=== PATIENT | female | born 1985 | race Caucasian/White ===

== ENCOUNTER 2016-03-30 11:16 | Emergency (ER) | payer BC, OTHER ==
[~2016-03-30] VITALS: Ht 167.6 cm; Wt 64.0 kg
[~2016-03-30 11:16] MED LIST: ACET-1256 PO; FLUO10CA48 PO; IBUP-1050 PO; NAPR550T PO; NXM/40 PO; OXYC-57 PO
[2016-03-30 11:18] VITALS: TEMP 36.8; Ht 167.6 cm; Wt 64.0 kg
[2016-03-30] MEDS ORDERED: DICL-201 PO (11:43)
--- NOTE | 2016-03-30 13:00 | DIAGNOSTIC IMAGING REPORT ---
RIGHT FOOT 3 VIEWS CLINICAL HISTORY: Right foot injury and pain. FINDINGS: 3 views of the right foot are obtained. No prior studies are available for comparison at the time of dictation. The skeletal structures are well mineralized. No fracture is identified. The joint spaces of the foot are well-maintained. Soft tissue edema is present along the lateral aspect of the foot. IMPRESSION: Lateral soft tissue swelling with no radiographic evidence of fracture. Electronically signed by: Manuel Winston M.D. 03/30/2016 12:58 PM
--- NOTE | 2016-03-30 13:09 | EMERGENCY ROOM VISIT NOTE ---
ED Visit Note First contact with patient: 11:23 CHIEF COMPLAINT: Right foot injury last evening Patient is a 22-year-old white female who presents emergency department for evaluation of right foot pain. She was barefoot, and was doing some cleaning on the steps, when she turned and accidentally kicked the step. She sustained an abrasion to the top of the foot over the first metatarsal region. She complains of pain across the entire dorsum of the foot that radiates toward her ankle. She has tried taking Tylenol, ibuprofen, applying ice and taking diclofenac. She is able to bear weight with pressure on the lateral aspect of the foot. She denies any significant swelling or bruising. She states that her toes feel cold, but denies any numbness or tingling. No weakness. REVIEW OF SYSTEMS: Review of systems as per HPI. All other systems reviewed were negative. At least 6 systems reviewed. PMH: Electronic medical records are reviewed and summarized as above/below. See Problem List. SOCIAL HISTORY: Patient lives at home with her children. Employed. Smoker. PHYSICAL EXAM: Vital Signs: Reviewed Nurse's notes. GENERAL: Alert, oriented and coherent, not in acute distress. Foot: Examination of the right shoulder foot show a superficial abrasion noted on the dorsum of the foot over the first metatarsal, otherwise no other outward signs of trauma. No ecchymosis or significant soft tissue swelling. She is tenderness over the dorsum of the foot. No pain or bruising noted in the toes. Range of motion is full. No ligamentous instability. Ankle is nontender. EMERGENCY DEPARTMENT COURSE: X-rays of the right foot were negative for fracture. She declined a postop shoe. She will wear a supportive shoe such as a sneaker. She was given a [place] home pack. She was encouraged to use her other anti-inflammatory medicines as needed for pain. Follow-up with her toe or her PCP if she is not getting any better. Differential diagnosis includes sprain, contusion, fracture, dislocation. RIGHT FOOT 3 VIEWS CLINICAL HISTORY: Right foot injury and pain. FINDINGS: 3 views of the right foot are obtained. No prior studies are available for comparison at the time of dictation. The skeletal structures are well mineralized. No fracture is identified. The joint spaces of the foot are well-maintained. Soft tissue edema is present along the lateral aspect of the foot. IMPRESSION: Lateral soft tissue swelling with no radiographic evidence of fracture. Problem List Medical Problems: (1) Abdominal pain Status: Resolved (2) Anxiety Status: Chronic (3) Contractions Status: Resolved (4) Dehydration Status: Resolved (5) Diarrhea Status: Resolved (6) Diarrhea Status: Resolved (7) Encounter for tubal ligation Status: Resolved (8) Endometriosis Status: Resolved (9) Epigastric pain Status: Resolved (10) Gallbladder sludge Status: Resolved (11) GERD (gastroesophageal reflux disease) Status: Chronic (12) History of miscarriage Status: Resolved (13) Hx of endometriosis Status: Resolved (14) Pelvic pain Status: Resolved (15) Status: Resolved (16) Vomiting Status: Resolved Surgical Problems: (1) History of hysterectomy Status: Resolved (2) History of wisdom tooth extraction Status: Resolved Current/Historical Medications Scheduled Acetaminophen (Tylenol), 1,000 MG PO DAILY Diclofenac (Voltaren), 75 MG PO BID Ibuprofen (Advil), 200 MG PO BID Allergies Coded Allergies: Amoxicillin (Verified Allergy, Intermediate, NAUSEA AND VOMITING, 01/01/16) Clavulanic Acid (Verified Allergy, Intermediate, NAUSEA AND VOMITING, 12/31) Guaifenesin (Verified Adverse Reaction, Intermediate, N/V, 01/01/16) Phenylephrine (Verified Adverse Reaction, Intermediate, N/V, 01/01/16) Phenylpropanolamine (Verified Adverse Reaction, Intermediate, N/V, 01/01/16 ) Vital Signs Date Time Temp Pulse Resp B/P Pulse Ox O2 Delivery O2 Flow Rate FiO2 03/30/16 13:26 80 18 134/82 100 03/30/16 11:18 36.8 112 16 122/84 98 Room Air Departure Information Impression Primary Impression: Contusion of right foot Referrals William Valdez DO (PCP) Patient Instructions A Signature Page, My [facility] Additional Instructions Hydrocodone/Acetaminophen ([place]) 5/325 mg: Take 1-2 pills every four hours for breakthrough pain. Avoid alcohol, operating machinery or dangerous equipment, working on ladders or roofs, DRIVING, or situations where being under the influence may be dangerous. It is recommended to use an [id number] stool softener such as Colace, 100mg twice daily while taking this medication to avoid constipation. Ibuprofen(Motrin, Advil) may be used for fever or pain. Use 600mg every six hours as needed. Take with food. Avoid using more than 2400mg in a 24 hour period. Do not use 2400mg per day for more than three consecutive days without physician direction. Prolonged inappropriate use can lead to stomach upset or ulcers. This medication can be taken if you need to drive, work, or perform activities which may be dangerous when taking narcotic pain medication. (AND/OR) Acetaminophen(Tylenol) may be used for fever or pain. Use 1000mg every six hours as needed. Avoid using more than 3000mg in a 24 hour period. This medication can be taken if you need to drive, work, or perform activities which may be dangerous when taking narcotic pain medication. Ice compresses for 20 minutes at a time four times daily for 2-3 days. Wear a supportive shoes such as a sneaker. Rest and elevate your injury. Continue current medications. Follow-up with your family doctor or orthopedics if her symptoms are not improving in 5-7 days.
[2016-03-30] MEDS ORDERED: NORCO 5/325MG HOME PACK PO ONE (13:15)
[2016-03-30 13:26] VITALS: BP 134/82; PULSE 80; O2SAT 100
== END 2016-03-30 13:27 | disposition home or self-care (01) ==
LOC: C.EDB 11:17 → C.EDD 13:27
DX: S90.31XA Contusion of right foot, initial encounter (principal); W22.09XA Striking against other stationary object, initial encounter; Y93.E5 Activity, floor mopping and cleaning; F17.200 Nicotine dependence, unspecified, uncomplicated; Z79.1 Long term (current) use of non-steroidal anti-inflammatories (NSAID)

== ENCOUNTER 2016-04-09 16:52 | Emergency (ER) | payer BC ==
[~2016-04-09] VITALS: Ht 167.6 cm; Wt 61.1 kg
[~2016-04-09 16:52] MED LIST changes: +DICL-201 PO; -FLUO10CA48 PO; -NAPR550T PO; -NXM/40 PO; -OXYC-57 PO
[2016-04-09 16:57] VITALS: TEMP 36.6; Ht 167.6 cm; Wt 61.1 kg
[2016-04-09] MEDS ORDERED: CYCL5TAB PO (17:16)
[2016-04-09] MEDS ORDERED: OXAP600T PO (17:16)
--- NOTE | 2016-04-09 18:43 | DIAGNOSTIC IMAGING REPORT ---
RIGHT RIBS UNILATERAL WITH PA CHEST CLINICAL HISTORY: R rib pain Right. Fall. COMPARISON STUDY: Bilateral rib series 03/11/2016. FINDINGS: The lungs are clear. The heart is normal in size. No pleural effusions. No pneumothorax. No rib fractures. IMPRESSION: No rib fractures. No pneumothorax. Electronically signed by: Jt Perez M.D. 04/09/2016 6:41 PM Dictated Date/Time: 04/09/2016 6:39 PM
[2016-04-09 18:45] VITALS: BP 113/94; PULSE 88; O2SAT 100
--- NOTE | 2016-04-10 22:32 | EMERGENCY ROOM VISIT NOTE ---
ED Visit Note First contact with patient: 17:30 Chief Complaint: Right sided rib pain. History of Present Illness: Ms. Carrillo is a 30-year-old white female who ambulates into the ED complaining of right lateral and posterior rib pain. Patient reports approximately 2-3 hours before she arrived in the emergency department she slipped and fell on ice striking the right side of her chest on the ground. She does report at the time of the fall she did not strike her head or have loss of consciousness and since the fall she has had no signs of head injury. She does report at the time of the fall she thought she felt a popping sensation. Since that time she reports that she has been having moderate to severe pain over the lateral and aspect of the ribs. Currently she describes her pain as a sharp sensation. She rates her discomfort 5/10. Her pain is nonradiating. Her pain worsens with palpation and deep inspiration. She has not identified any alleviating factors related to the pain. She has not taken a medications for pain prior to arrival at the hospital. She denies any associated symptoms including cough, wheezing, shortness of breath, difficulty breathing, abdominal pain, nausea, vomiting, neck pain, back pain. Review of Systems: As noted above in history of present illness. 8 body systems were reviewed and found to be negative as noted above. Past Medical History: Asthma, bronchitis, status post wisdom teeth extraction and hysterectomy. Current Medications: Medications Dose Route/Sig Max Daily Dose Days Date Category Dose Instructions Daypro (Oxaprozin) 600 Mg Tab 600 Mg PO BID 04/09/16 Reported Flexeril (Cyclobenzaprine Hcl) 5 Mg Tab 5 Mg PO TID 04/09/16 Reported PRN Allergies to Medications: Augmentin, guaifenesin, phenylephrine, phenylpropanolamine. Social History: Patient is currently employed; she feels safe in her home environment; she admits to tobacco use and denies alcohol use. Physical Examination: Vital Signs: Date Time Temp Pulse Resp B/P Pulse Ox O2 Delivery O2 Flow Rate FiO2 04/09/16 18:45 88 16 113/94 100 04/09/16 16:57 36.6 112 18 117/78 100 Room Air GENERAL: 30-year-old female in mild to moderate distress due to pain, nontoxic- appearing, afebrile and hemodynamically stable. NEUROLOGICAL: Awake, alert and oriented to person, place and time. Answering questions appropriately and following commands. Normal gait. Good hand eye coordination. No focal motor sensory deficits. Good short-term and long-term recall. Negative pronator drift. Negative Romberg test. Cranial nerves II through XII grossly intact. SKIN: Warm, dry and pink. No soft tissue eruptions or trauma noted. HEENT: Atraumatic and normocephalic. PERRLA. EOMI without nystagmus. Sclera white and conjunctiva pink. No facial trauma. No malocclusion. Airway patent. No intraoral trauma. Speech normal. Trachea midline. No jugular venous distention. BACK: No tenderness over the bony cervical, thoracic and lumbar spine. No CVA tenderness. THORAX: Lungs sounds are clear to auscultation and equal bilaterally with symmetrical chest wall. No wheezing, rales or rhonchi. Moderate tenderness over the lateral and posterior ribs without bony deformity, bony crepitus, ecchymosis, subcutaneous air or palpable/visual flat segments. HEART: Regular rate and rhythm. No gallops, rubs or murmurs are appreciated. ABDOMEN: Flat, soft and nontender. Positive bowel sounds in all quadrants. No guarding, rigidity or organomegaly. EXTREMITIES: Moves all extremities well on command and with purpose. All distal neurovascular statuses are intact and equal bilaterally. ED Course: Patient is assessed as noted above. PA Chest and Right Rib Series: Were read by myself and the radiologist showing no acute infiltrates, effusions or pneumothorax. Normal heart silhouette and no rib fractures. Patient was offered pain medications and refused. Patient was educated about tonight's findings and instructed on her treatment plan; she verbalizes understanding and agreement with this plan. Clinical Impression: Right sided rib pain. Status post fall. Disposition: Patient discharged home in stable condition; prior to departure she was reassessed and subjectively reported she was feeling the same. Plan: Patient was encouraged to alternate ibuprofen and acetaminophen every 3 hours. Patient was encouraged to use ice on areas of pain for 5 times a day for 20-30 minutes. Patient was encouraged to avoid tobacco use. Patient was encouraged to do a breathing exercises every couple hours while awake. Patient was encouraged to follow-up with family physician for recheck in 3-5 days. Patient was encouraged return the ED for worsening/uncontrolled pain, shortness of breath, fevers, coughing up blood or any new/concerning symptoms.
== END 2016-04-09 19:11 | disposition home or self-care (01) ==
LOC: C.EDB 16:53 → C.EDD 19:11
DX: R07.81 Pleurodynia (principal); W00.0XXA Fall on same level due to ice and snow, initial encounter; F17.200 Nicotine dependence, unspecified, uncomplicated; J45.909 Unspecified asthma, uncomplicated

== ENCOUNTER 2016-06-01 16:05 | Emergency (ER) | payer BC ==
[~2016-06-01] VITALS: Ht 170.2 cm; Wt 62.2 kg
[~2016-06-01 16:05] MED LIST changes: -ACET-1256 PO; +CYCL5TAB PO; -DICL-201 PO; -IBUP-1050 PO; +OXAP600T PO
[2016-06-01 16:09] VITALS: TEMP 36.9; Ht 170.2 cm; Wt 62.2 kg
[2016-06-01] MEDS ORDERED: SODIUM CHLORIDE 0.9% 1000ML 1,000 ML IV STA (16:22)
[2016-06-01] MEDS ORDERED: PROMETHAZINE HCL INJ 12.5 MG in SODIUM CHLORIDE 0.9% 50ML 50 ML IV STA (16:22)
[2016-06-01] MEDS ORDERED: KETOROLAC TROMETHAMINE 30 MG/ML VIAL IV STA (16:22)
[2016-06-01] MEDS ORDERED: DEXT1TAB50 PO (16:33)
[2016-06-01] MEDS ORDERED: MELO15TA10 PO (16:33)
[2016-06-01] MEDS ORDERED: RIZA10TA18 PO (16:33)
[2016-06-01] MEDS: MoRPHine SULFATE 4 MG/ML 1 ML CARP\\VIAL IV PRN ×2 (16:46→17:39)
[2016-06-01 18:26] VITALS: BP 122/69; PULSE 68; O2SAT 99
--- NOTE | 2016-06-01 18:46 | EMERGENCY ROOM VISIT NOTE ---
History Report prepared by Lenin: Kajal Briseno Under the Supervision of: Dr. Sorin Naqvi D.O. First contact with patient: 16:15 Chief Complaint: HEADACHE Stated Complaint: MIGRAINE,VOMITING History of Present Illness The patient is a 31 year old female who presents to the Emergency Room with complaints of persistent headache that started 3 days ago. The headache is mainly in her temples, but it is radiating into the base of head. She describes the pain as sharp. The patient states that her headache has been constant for the last 3 days. She saw her PCP 3 days ago. She was given a shot of Toradol and was told to take Benadryl. Neither have relieved her headache. She states that she also took Excedrin - Tension Headache, Maxalt, and Mucinex for her headaches, but nothing has offered her any relief. She states that she has tried to relieve her headache with everything that she normally does, but she has not experienced any relief. The patient tried to see her PCP again 2 days ago, but there was no availability for her to get in. She is also experiencing photophobia, nausea, and vomiting, but denies neck stiffness. She states that she experienced similar headaches when she was with her son 5 years ago and she also experiences similar headaches once or twice a year. This headache is not atypical for her, but she states that it is debilitating. She states that she had a CT scan of her head done within the last 5 years. The patient adds that she has experienced gallbladder attacks, but has never received a HIDA scan because she forgot to reschedule it after she got with her daughter. The patient also adds that she had a hysterectomy done in December. The patient smokes and drinks alcohol occasionally. Source of History: patient Onset: 3 days ago Position: head Quality: sharp Timing: other (persistent) Modifying Factors (Relieving): other (None) Associated Symptoms: + nausea, + vomiting Note: photophobia, no neck stiffness Review of Systems See HPI for pertinent positives & negatives. A total of 10 systems reviewed and were otherwise negative. Past Medical & Surgical Medical Problems: (1) Abdominal pain (2) Anxiety (3) Asthma, Unspecified (4) Contractions (5) Dehydration (6) Diarrhea (7) Diarrhea (8) Encounter for tubal ligation (9) Endometriosis (10) Epigastric pain (11) Gallbladder sludge (12) GERD (gastroesophageal reflux disease) (13) History of miscarriage (14) Hx of endometriosis (15) Pelvic pain (16) (17) Vomiting Surgical Problems: (1) History of hysterectomy (2) History of wisdom tooth extraction Family History Cancer Diabetes mellitus Gallbladder disease Heart disease Social History Smoking Status: Current Every Day Smoker Alcohol Use: occasionally Drug Use: none Marital Status: single Housing Status: lives with family Occupation Status: employed Current/Historical Medications Scheduled Dextromethorphan-Guaifenesin (Mucinex Dm Maximum Streng), 1 TAB PO BID Meloxicam (Mobic), 1 TAB PO DAILY Oxaprozin (Daypro), 600 MG PO BID Scheduled PRN Rizatriptan Benzoate (Maxalt), 10 MG PO DAILY PRN for Headache Allergies Coded Allergies: Amoxicillin (Verified Allergy, Intermediate, NAUSEA AND VOMITING, 06/01/16) Clavulanic Acid (Verified Allergy, Intermediate, NAUSEA AND VOMITING, ) Guaifenesin (Verified Adverse Reaction, Intermediate, N/V, 06/01/16) Phenylephrine (Verified Adverse Reaction, Intermediate, N/V, 06/01/16) Phenylpropanolamine (Verified Adverse Reaction, Intermediate, N/V, 06/01/16) Physical Exam Vital Signs Date Time Temp Pulse Resp B/P Pulse Ox O2 Delivery O2 Flow Rate FiO2 06/01/16 18:26 68 16 122/69 99 Room Air 06/01/16 17:48 66 18 120/73 100 Room Air 06/01/16 16:09 36.9 105 20 111/79 97 Room Air Physical Exam GENERAL: Patient is awake, alert, and in no acute distress. Patient is resting comfortably and showing no signs of anxiety EYES: The conjunctivae are clear. The pupils are round and reactive. EARS, NOSE, MOUTH AND THROAT: The nose is without any evidence of any deformity. Mucous membranes are moist tongue is midline NECK: The neck is nontender and supple. RESPIRATORY: Normal respiratory effort is noted there is no evidence of wheezing rhonchi or rales CARDIOVASCULAR: Regular rate and rhythm noted there no murmurs rubs or gallops normal S1 normal S2 GASTROINTESTINAL: The abdomen is soft. Bowel sounds are present in all quadrants. Abdomen is nontender MUSCULOSKELETAL/EXTREMITIES: There is no evidence of gross deformity full range of motion is noted in the hips and shoulders SKIN: There is no obvious evidence of any rash. There are no petechiae, pallor or cyanosis noted. NEUROLOGIC: Patient is awake alert and oriented x3 strength is symmetric patellar reflexes are 2+ bilaterally Medical Decision & Procedures Medications Administered Medications (Trade) Dose Ordered Sig/Juni Route Start Time Stop Time Status Last Admin Dose Admin Ketorolac Tromethamine 30 mg 30 mg NOW STAT IV 06/01/16 16:22 06/01/16 16:24 DC 06/01/16 16:46 30 MG Sodium Chloride 1,000 ml @ 999 mls/hr Q1H1M STAT IV 06/01/16 16:22 06/01/16 17:22 DC 06/01/16 16:46 999 MLS/HR Promethazine HCl/ Sodium Chloride (Phenergan Inj/ Nss 50ml) 50.5 ml @ 204 mls/hr NOW STAT IV 06/01/16 16:22 06/01/16 16:36 DC 06/01/16 16:45 204 MLS/HR Morphine Sulfate (MoRPHine SULFATE INJ) 4 mg Q15M PRN IV 06/01/16 16:30 06/01/16 19:03 DC 06/01/16 17:39 4 MG ED Course 1619: The patient was evaluated in room C3. A complete history and physical examination were performed. 1622: Ordered Promethazine HCl 12.5 mg/Sodium Chloride 50.5 ml @ 204 mls/hr IV, NSS 1,000 ml @ 999 mls/hr IV, Toradol Inj 30 mg IV 1630: Ordered Morphine Sulfate 4 mg IV 1734: I reassessed the patient. She is resting comfortably, but requested something more for pain. 1822: Upon reevaluation, the patient is doing well. I discussed the results and treatment plan with her. She verbalized agreement of the treatment plan. She was discharged home. Medical Decision Prior records/ancillary studies reviewed. Triage Nursing notes reviewed. The patient's history was concerning for headache. Differential diagnosis: Etiologies such as migraine headache, meningitis, sinusitis, CO exposure, ICH, SAH, infection, tumor, headache, sinus thrombosis, arterial dissection, as well as others were entertained. The patient is a 31-year-old female who presented to the emergency department for an evaluation of headache. The patient states that she has a history of chronic headache. She states that this headache feels very similar to headaches that she is expressly in the past. She was treated with her usual medication regimen without relief. The patient was further treated with IV fluids IV pain medicine and IV antiemetics. On subsequent reevaluation she was feeling much better. She was encouraged to rest and avoid any strenuous activity. She was also encouraged to call her primary care physician to schedule a follow-up appointment. She was also encouraged return to emergency apartment immediately if symptoms change worsen or the need arises. The patient did not have any fever meningismus or focal neurologic deficit. Impression Primary Impression: Migraine headache Scribe Attestation The scribe's documentation has been prepared under my direction and personally reviewed by me in its entirety. I confirm that the note above accurately reflects all work, treatment, procedures, and medical decision making performed by me. Departure Information Dispostion Home / Self-Care Referrals William Valdez DO (PCP) Forms HOME CARE DOCUMENTATION FORM, IMPORTANT VISIT INFORMATION Patient Instructions ED Smoking Cessation, Headaches Migraine and Tension, My [facility] Additional Instructions Rest and avoid any strenuous activity. Continue all medications as prescribed. Follow-up with your family this week for reevaluation. Return to the emergency department if symptoms worsen or if the need arises. Problem Qualifiers Primary Impression: Migraine headache Migraine type: with aura Status migrainosus presence: without status migrainosus Intractability: not intractable Qualified Codes: G43.109 - Migraine with aura, not intractable, without status migrainosus
== END 2016-06-01 18:49 | disposition home or self-care (01) ==
LOC: C.EDB 16:06 → C.EDC 18:49
DX: G43.109 Migraine with aura, not intractable, without status migrainosus (principal); Z90.710 Acquired absence of both cervix and uterus; F17.200 Nicotine dependence, unspecified, uncomplicated; J45.909 Unspecified asthma, uncomplicated; Z98.51 Tubal ligation status; Z98.818 Other dental procedure status; Z87.59 Personal history of other complications of pregnancy, childbirth and the puerperium

== ENCOUNTER 2016-07-17 18:54 | Emergency (ER) | payer BC ==
[~2016-07-17] VITALS: Ht 167.6 cm; Wt 62.4 kg
[~2016-07-17 18:54] MED LIST changes: -MELO15TA4 PO; -OPTIRAY 320 IV PRN; -RANI150C4 PO; -RIZA1TAB11 PO
[2016-07-17 19:03] VITALS: Ht 167.6 cm; Wt 62.4 kg
[2016-07-17] MEDS ORDERED: HYOSCYAMINE SULFATE 0.125 MG SL TAB PO STA (19:19)
[2016-07-17] MEDS ORDERED: SODIUM CHLORIDE 0.9% 1000ML 1,000 ML IV STA (19:19)
[2016-07-17] MEDS ORDERED: RIZA1TAB11 PO (19:55)
[2016-07-17] MEDS ORDERED: MELO15TA4 PO (19:55)
[2016-07-17] MEDS ORDERED: MoRPHine SULFATE 4 MG/ML 1 ML CARP\\VIAL IV STA (20:09)
[2016-07-17] MEDS ORDERED: ONDANSETRON INJ 2 MG/ML 2 ML VIAL IV STA (20:09)
[2016-07-17 21:32] LABS: MANUAL MICROSCOPIC REQUIRED? NO; URINE APPEARANCE CLEAR (CLEAR); URINE BILIRUBIN NEG (NEG); URINE COLOR YELLOW; URINE NITRITE NEG (NEG); URINE PH 5.5 (4.5-7.5); UROBILINOGEN NEG (NEG)
[2016-07-17 21:33] LABS: REVIEW REQ? NO
--- NOTE | 2016-07-17 21:43 | DIAGNOSTIC IMAGING REPORT ---
ABDOMINAL ULTRASOUND, RIGHT UPPER QUADRANT HISTORY: Abnormal CT. Evaluate gallbladder.. COMPARISON: None. FINDINGS: Pancreas: The pancreas demonstrates a normal echotexture. Liver: Unremarkable. Gallbladder: No gallbladder wall thickening. No gallstones. No pericholecystic fluid. CBD: 3 mm. Right kidney: No hydronephrosis. IMPRESSION: No significant abnormality identified within the right upper quadrant. Electronically signed by: Jt Perez M.D. 07/17/2016 9:41 PM Dictated Date/Time: 07/17/2016 9:40 PM
--- NOTE | 2016-07-17 21:45 | DIAGNOSTIC IMAGING REPORT ---
PELVIC ULTRASOUND, TRANSABDOMINAL HISTORY: Severe pelvic cramping. COMPARISON: None. FINDINGS: The patient deferred transvaginal scanning. Uterus: Surgically absent. Right ovary: Normal in size and demonstrates normal color flow. Left ovary: Normal in size and demonstrates normal color flow. Miscellaneous:No pelvic free fluid. IMPRESSION: No significant abnormality identified within the pelvis. Prior hysterectomy. Electronically signed by: Jt Perez M.D. 07/17/2016 9:43 PM Dictated Date/Time: 07/17/2016 9:41 PM
[2016-07-17] MEDS ORDERED: OXYCODONE IR HOME PACK PO ONE (22:00)
[2016-07-17 22:13] VITALS: BP 111/66; PULSE 80; TEMP 36.7; O2SAT 100
--- NOTE | 2016-07-18 01:01 | EMERGENCY ROOM VISIT NOTE ---
History Report prepared by Lenin: Mony Pfeiffer Under the Supervision of: Dr. Milton Bills M.D. First contact with patient: 19:11 Chief Complaint: ABDOMINAL PAIN Stated Complaint: SEVERE CRAMPING/SHARP PAINS IN STOMACH AND BACK History of Present Illness The patient is a 31 year old female who presents to the Emergency Room with complaints of constant abdominal pain for the past 16 hours. The patient states that she woke up this morning at 3am with stabbing lower abdominal pain. Her pain has worsened throughout the day. Palpation exacerbates her pain and she rates her current pain as a 6/10 in severity. She did not notice right upper quadrant abdominal pain until her doctor pressed on the area. She went to her PCP today and had blood work and a CT with contrast. She was sent to the ED for further evaluation. She states that she is now experiencing watery diarrhea that started this afternoon. The patient denies vomiting, fever, melena, hematochezia, urinary symptoms, and any abnormal vaginal discharge. She has not recently traveled outside of the country. The patient was taking antibiotics in April for a UTI but denies any more recent antibiotic use. 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 A total of 10 systems reviewed and were otherwise negative. Past Medical & Surgical Medical Problems: (1) Abdominal pain (2) Anxiety (3) Asthma, Unspecified (4) Contractions (5) Dehydration (6) Diarrhea (7) Diarrhea (8) Encounter for tubal ligation (9) Endometriosis (10) Epigastric pain (11) Gallbladder sludge (12) GERD (gastroesophageal reflux disease) (13) History of miscarriage (14) Hx of endometriosis (15) Pelvic pain (16) (17) Vomiting Surgical Problems: (1) History of hysterectomy (2) History of wisdom tooth extraction Family History Cancer Diabetes mellitus Gallbladder disease Heart disease Social History Smoking Status: Current Every Day Smoker Alcohol Use: occasionally Drug Use: none Marital Status: single Housing Status: lives with family Occupation Status: employed Current/Historical Medications Scheduled PRN Meloxicam (Meloxicam), 15 MG PO DAILY PRN for Joint Pain Rizatriptan Benzoate (Rizatriptan Benzoate), 5 MG PO UD PRN for Migraine Allergies Coded Allergies: Amoxicillin (Verified Adverse Reaction, Mild, NAUSEA AND VOMITING, 07/17/16 ) Clavulanic Acid (Verified Adverse Reaction, Mild, NAUSEA AND VOMITING, ) Guaifenesin (Verified Adverse Reaction, Mild, N/V, 07/17/16) Phenylephrine (Verified Adverse Reaction, Mild, N/V, 07/17/16) Phenylpropanolamine (Verified Adverse Reaction, Mild, N/V, 07/17/16) Physical Exam Vital Signs Date Time Temp Pulse Resp B/P Pulse Ox O2 Delivery O2 Flow Rate FiO2 07/17/16 22:13 36.7 80 18 111/66 100 07/17/16 21:32 80 18 111/66 07/17/16 19:03 36.7 69 16 138/89 100 Room Air Physical Exam Constitutional: Vital signs reviewed. Eyes: Pupils are equal round reactive to light. Conjunctiva are noninjected. ENT: Pharynx is clear without erythema or exudate. Mucous membranes are moist. Neck supple without meningeal signs. Respiratory: Clear to auscultation bilaterally. Breath sounds are equal bilaterally. Cardiovascular: Regular rate and rhythm. No rubs or gallops. GI: Soft, nondistended. Suprapubic and RUQ tenderness, no guarding. Bowel sounds are present. Musculoskeletal: No peripheral edema. No lower extremity tenderness. Integumentary: No cyanosis. Neurological: The patient is awake and alert. No focal deficits. Psychiatric: Normal affect. Medical Decision & Procedures ER Provider Diagnostic Interpretation: Radiology results as stated below per my review and the radiologist's interpretation: PELVIC ULTRASOUND, TRANSABDOMINAL HISTORY: Severe pelvic cramping. COMPARISON: None. FINDINGS: The patient deferred transvaginal scanning. Uterus: Surgically absent. Right ovary: Normal in size and demonstrates normal color flow. Left ovary: Normal in size and demonstrates normal color flow. Miscellaneous:No pelvic free fluid. IMPRESSION: No significant abnormality identified within the pelvis. Prior hysterectomy. Electronically signed by: Jt Perez M.D. 07/17/2016 9:43 PM Dictated Date/Time: 07/17/2016 9:41 PM ABDOMINAL ULTRASOUND, RIGHT UPPER QUADRANT HISTORY: Abnormal CT. Evaluate gallbladder.. COMPARISON: None. FINDINGS: Pancreas: The pancreas demonstrates a normal echotexture. Liver: Unremarkable. Gallbladder: No gallbladder wall thickening. No gallstones. No pericholecystic fluid. CBD: 3 mm. Right kidney: No hydronephrosis. IMPRESSION: No significant abnormality identified within the right upper quadrant. Electronically signed by: Jt Perez M.D. 07/17/2016 9:41 PM Dictated Date/Time: 07/17/2016 9:40 PM Laboratory Results Test 07/17/16 00:00 Urine Color YELLOW Urine Appearance CLEAR (CLEAR) Urine pH 5.5 (4.5-7.5) Urine Specific [place] 1.010 (1.000-1.030) Urine Protein NEG (NEG) Urine Glucose (UA) NEG (NEG) Urine Ketones NEG (NEG) Urine Occult Blood NEG (NEG) Urine Nitrite NEG (NEG) Urine Bilirubin NEG (NEG) Urine Urobilinogen NEG (NEG) Urine Leukocyte Esterase NEG (NEG) Laboratory results as reviewed by me. Medications Administered Medications (Trade) Dose Ordered Sig/Juni Route Start Time Stop Time Status Last Admin Dose Admin Hyoscyamine Sulfate 0.125 mg 0.125 mg NOW STAT PO 07/17/16 19:19 07/17/16 19:23 DC 07/17/16 19:32 0.125 MG Sodium Chloride (Nss 1000ml) 1,000 ml @ 999 mls/hr Q1H1M STAT IV 07/17/16 19:19 07/17/16 20:19 DC 07/17/16 19:34 999 MLS/HR Morphine Sulfate (MoRPHine SULFATE INJ) 4 mg NOW STAT IV 07/17/16 20:09 07/17/16 20:10 DC 07/17/16 21:30 4 MG Ondansetron HCl (Zofran Inj) 4 mg NOW STAT IV 07/17/16 20:09 07/17/16 20:10 DC 07/17/16 21:30 4 MG Oxycodone HCl (Roxicodone Immediate Rel 5MG Home Pack) 1 homepack UD ONCE PO 07/17/16 22:00 07/17/16 22:01 DC 07/17/16 22:13 1 HOMEPACK ED Course 1910: The patient was evaluated in room C9. A complete history and physical exam was performed. 1918: NSS 1000 ml @ 999mls/hr IV, Levsin 0.125 mg PO 2007: I reassessed the patient and she is not feeling much better. 2008: Zofran 4 mg IV, Morphine sulfate 4 mg IV 2149: I reassessed the patient at this time. She is feeling better and resting comfortably. I discussed the results and treatment plan with the patient. I answered all pertaining questions that she had. She expressed understanding and verbalized agreement. The patient will be discharged home. 2199: Oxycodone HCl PO 1 homepack Medical Decision This is a 31-year-old female presents with abdominal pain. Differential diagnosis includes cholecystitis, pancreatitis, duodenitis, irritable bowel syndrome, ovarian torsion. I did perform a limited focused review of portions of the patient's old chart on the electronic medical record. The patient had blood work today including a CBC which showed no elevation of her white count and LFTs which were unremarkable. She did have a slightly elevated lipase of 409 but had an elevated lipase over 400 in July and August of last year. The patient had a CT scan of the abdomen and pelvis today which showed a normal appendix, and minimal pericholecystic fluid which could be due to overhydration. The gallbladder wall was not thickened. I did evaluate the patient as noted above. The patient has had blood work already and a CT scan as noted above. She was sent here by her doctor for further evaluation for continued pain. IV access was established. I initially treated the patient with normal saline IV and Levsin. She had no relief of her symptoms and so she was given morphine and Zofran IV. I did order and personally review the patient's urinalysis as described above. There is no evidence of blood or infection. I did order an ultrasound of the right upper quadrant and pelvis. I did review the images myself as well as the radiology report as described above. There is no evidence of cholecystitis or abnormality and right upper quadrant. No signs of torsion and pelvis. I did reassess the patient. I did discuss the test results with the patient. 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 She is feeling better at this time. She was discharged with a OxyIR home pack and given precautions regarding this medication. She was discharged in good condition. Impression Primary Impression: Right upper quadrant abdominal pain Additional Impressions: Right lower quadrant abdominal pain Diarrhea Scribe Attestation The scribe's documentation has been prepared under my direct and personally reviewed by me in its entirety. I confirm that the note above accurately reflects all work, treatment, procedures, and medical decision making performed by me. Departure Information Dispostion Home / Self-Care Referrals William Valdez DO (PCP) Forms HOME CARE DOCUMENTATION FORM, IMPORTANT VISIT INFORMATION Patient Instructions ED Abd Pain Unkn Cause Fem, My [facility] Additional Instructions You have been examined and treated today on an emergency basis only. This is not a substitute for, or an effort to provide, complete comprehensive medical care. It is impossible to recognize and treat all injuries or illnesses in a single emergency department visit. It is therefore important that you follow up closely with your physician. Call as soon as possible for an appointment. Return for worsening symptoms or if you develop fever, vomiting, or any other concerning symptoms. Problem Qualifiers Additional Impressions: Diarrhea Diarrhea type: unspecified type Qualified Codes: R19.7 - Diarrhea, unspecified
== END 2016-07-17 22:14 | disposition home or self-care (01) ==
LOC: C.EDB 18:55 → C.EDC 22:14
DX: R10.11 Right upper quadrant pain (principal); R10.12 Left upper quadrant pain; R19.7 Diarrhea, unspecified; K21.9 Gastro-esophageal reflux disease without esophagitis; F41.9 Anxiety disorder, unspecified; J45.909 Unspecified asthma, uncomplicated; K82.9 Disease of gallbladder, unspecified; N80.9 Endometriosis, unspecified; F17.200 Nicotine dependence, unspecified, uncomplicated; Z98.51 Tubal ligation status; Z90.710 Acquired absence of both cervix and uterus; Z88.1 Allergy status to other antibiotic agents; Z88.8 Allergy status to other drugs, medicaments and biological substances; Z80.9 Family history of malignant neoplasm, unspecified; Z83.3 Family history of diabetes mellitus; Z83.79 Family history of other diseases of the digestive system; Z82.49 Family history of ischemic heart disease and other diseases of the circulatory system

== ENCOUNTER → 2016-07-17 | Outpatient (CLI) | payer BC ==
[~2016-07-17] MED LIST changes: -CYCL5TAB PO; +DEXT1TAB50 PO; +MELO15TA10 PO; +MELO15TA4 PO; +OPTIRAY 320 IV PRN; +RANI150C4 PO; +RIZA10TA18 PO; +RIZA1TAB11 PO
[2016-07-17 15:26] LABS: BASO % 0.4 %; BASO ABS # 0.04 K/uL (0-0.2); EOS % 2.7 %; HEMATOCRIT 39.8 % (37-47); IG% 0.1 %; LYMPH ABS # 2.53 K/uL (1.2-3.4); MEAN CELL VOLUME 92.1 fL (80-100); MEAN CORPUSCULAR HEMOGLOBIN 30.1 pg (25-34); MEAN PLATELET VOLUME 9.8 fL (7.4-10.4); MONO % 6.5 %; NEUT % 63.3 %; PLATELET COUNT 243 K/uL (130-400); RED BLOOD COUNT 4.32 M/uL (4.2-5.4); WHITE BLOOD COUNT 9.36 K/uL (4.8-10.8)
[2016-07-17 15:32] LABS: COMPLETE YES; MEAN CORPUSCULAR HGB CONC 32.7 g/dl (32-36)
[2016-07-17 15:45] LABS: ALT/SGPT 42 U/L (12-78); AMYLASE 59 U/L (25-115); AST/SGOT 14 U/L (15-37); BLOOD UREA NITROGEN 16 mg/dl (7-18); BUN/CREATININE RATIO 18.7 (10-20); CALCIUM 8.6 mg/dl (8.5-10.1); CARBON DIOXIDE 28 mmol/L (21-32); CHLORIDE 113 mmol/L (98-107); CREATININE 0.83 mg/dl (0.60-1.20); GLUCOSE 92 mg/dl (70-99); POTASSIUM 4.2 mmol/L (3.5-5.1); SODIUM 145 mmol/L (136-145)
[2016-07-17 15:48] LABS: ALB/GLOB RATIO 1.3 (0.9-2); ALKALINE PHOSPHATASE 43 U/L (45-117)
--- NOTE | 2016-07-17 18:11 | DIAGNOSTIC IMAGING REPORT ---
ABDOMEN AND PELVIS CT WITH IV AND ORAL CONTRAST CT DOSE: 294.02 mGy.cm HISTORY: Right lower quadrant abdominal pain. TECHNIQUE: Multiaxial CT images of the abdomen and pelvis were performed following the use of intravenous and oral contrast. COMPARISON STUDY: Abdominal ultrasound 01/25/2015. FINDINGS: The lung bases are clear. The liver, spleen, adrenal glands, kidneys, and pancreas are unremarkable. No gallbladder wall thickening. Minimal pericholecystic fluid. This could be due to overhydration. No retroperitoneal lymphadenopathy. No significant pelvic free fluid. Bladder is not well-distended no bowel wall thickening or obstruction. Normal appendix. IMPRESSION: 1. No bowel wall thickening or obstruction. 2. Normal appendix. 3. Minimal pericholecystic fluid. This could be due to overhydration. Clinical correlation recommended to exclude right upper quadrant pain. Electronically signed by: Jt Perez M.D. 07/17/2016 6:09 PM Dictated Date/Time: 07/17/2016 6:03 PM
== END | disposition home or self-care (01) ==
LOC: C.CTS 14:49
PROVIDERS: ATTEND Family Medicine
DX: R10.30 Lower abdominal pain, unspecified (principal); R10.10 Upper abdominal pain, unspecified

== ENCOUNTER 2016-11-14 18:41 | Emergency (ER) | payer BC ==
[~2016-11-14] VITALS: Ht 167.6 cm; Wt 60.3 kg
[~2016-11-14 18:41] MED LIST changes: -DEXT1TAB50 PO; -MELO15TA10 PO; +MELO15TA4 PO; -OXAP600T PO; -RIZA10TA18 PO; +RIZA1TAB11 PO
[2016-11-14 18:46] VITALS: Ht 167.6 cm; Wt 60.3 kg
[2016-11-14] MEDS ORDERED: ONDANSETRON INJ 2 MG/ML 2 ML VIAL IV STA (18:53)
[2016-11-14] MEDS ORDERED: SODIUM CHLORIDE 0.9% 1000ML 1,000 ML IV STA (18:53)
[2016-11-14] MEDS ORDERED: MoRPHine SULFATE 4 MG/ML 1 ML CARP\\VIAL IV STA (18:53)
[2016-11-14] MEDS ORDERED: GI COCKTAIL PO STA (18:54)
[2016-11-14] MEDS ORDERED: ALUMINUM/MAGNESIUM SUSP 30 ML UDC ONE (19:10)
[2016-11-14] MEDS ORDERED: LIDOCAINE HCL 2% VISC SOLN 20 ML UDC ONE (19:10)
[2016-11-14] MEDS ORDERED: RANI150C4 PO (19:14)
[2016-11-14 19:23] LABS: BASO % 0.4 %; BASO ABS # 0.04 K/uL (0-0.2); COMPLETE YES; EOS % 1.1 %; HEMATOCRIT 46.8 % (37-47); IG% 0.1 %; LYMPH % 24.3 %; LYMPH ABS # 2.76 K/uL (1.2-3.4); MEAN CORPUSCULAR HEMOGLOBIN 29.1 pg (25-34); MEAN CORPUSCULAR HGB CONC 32.7 g/dl (32-36); MEAN PLATELET VOLUME 9.6 fL (7.4-10.4); MONO % 4.5 %; NEUT % 69.6 %; PLATELET COUNT 275 K/uL (130-400); RED BLOOD COUNT 5.26 M/uL (4.2-5.4); WHITE BLOOD COUNT 11.35 K/uL (4.8-10.8)
[2016-11-14 19:26] LABS: URINE APPEARANCE CLEAR (CLEAR); URINE BILIRUBIN NEG (NEG); URINE COLOR DK YELLOW; URINE EPITHELIAL CELL AUTO 20-30 /lpf (0-5); URINE NITRITE NEG (NEG); URINE SPECIFIC GRAVITY 1.035 (1.000-1.030); UROBILINOGEN NEG (NEG); ZZUR CULT IF INDIC CLEAN CATCH NO
[2016-11-14 19:28] LABS: MANUAL MICROSCOPIC REQUIRED? NO; REVIEW REQ? NO
[2016-11-14 19:40] LABS: BUN/CREATININE RATIO 17.1 (10-20); CALCIUM 8.9 mg/dl (8.5-10.1); CREATININE 0.99 mg/dl (0.60-1.20); POTASSIUM 3.8 mmol/L (3.5-5.1)
--- NOTE | 2016-11-14 19:52 | DIAGNOSTIC IMAGING REPORT ---
ULTRASOUND RIGHT UPPER QUADRANT ABDOMEN CLINICAL HISTORY: Right upper quadrant abdominal pain. COMPARISON STUDY: Abdominal ultrasound and abdominal CT dated 07/17/2016. TECHNIQUE: Real-time, grayscale, and color flow sonography of the right upper quadrant of the abdomen was performed. Images are reviewed in the transverse and longitudinal planes. FINDINGS: Liver: The liver is normal in size and echotexture. There is no intrahepatic biliary ductal dilatation. The main portal vein is patent. Gallbladder: The gallbladder is normal in appearance. No gallstones are identified. There is no gallbladder wall thickening or pericholecystic fluid. A sonographic Doyle's sign is reportedly absent. The common bile duct measures up to 0.4 cm in diameter. Pancreas: Visualized portions of the pancreatic head and body are normal in appearance. The splenic vein is patent. Right kidney: Survey images of the right kidney demonstrate normal size and echotexture. There is no hydronephrosis. Ascites: None. IMPRESSION: Unremarkable sonographic assessment of the right upper quadrant. No gallstones are identified and there has been no change from recent prior studies Electronically signed by: Manuel Winston M.D. 11/14/2016 7:50 PM Dictated Date/Time: 11/14/2016 7:49 PM
[2016-11-14 20:53] VITALS: BP 125/82; PULSE 106; TEMP 37; O2SAT 99
--- NOTE | 2016-11-14 23:48 | EMERGENCY ROOM VISIT NOTE ---
History Report prepared by Lenin: Abdoul Hurt Under the Supervision of: Dr. Shmuel Roach D.O. First contact with patient: 18:48 Chief Complaint: ABDOMINAL PAIN Stated Complaint: HEARTBURN/INDIGESTION - SEVERE PAIN BETWEEN RIBS History of Present Illness The patient is a 31 year old female who presents to the Emergency Room with complaints of stabbing RUQ/epigastric abdominal pain that began 4 days ago. At that time, she was experiencing this same pain, but it was not nearly as bad as it was today. She rates her pain a 4/10 in severity. She has a past medical history of biliary colic that she has been treated for in the past. She still has her gallbladder because when she was scanned, she did not have any gallstones present. Since a couple of days ago, every time she eats anything, the pain gets significantly worse. Her pain is radiating into her right shoulder and right ribs. She is experiencing nausea, vomiting, and diarrhea as well. She has tried Zantac and Ranitidine, which helped before, but she has stopped taking these medications and just recently restarted them. The ranitidine has been helping. She is also having some shortness of breath secondary to the pain in her abdomen. She denies any other medical problems. She has had a hysterectomy. Source of History: patient Onset: four days ago Position: abdomen (RUQ) Symptom Intensity: 4/10 Quality: stabbing Timing: worsening Modifying Factors (Worsening): eating Associated Symptoms: + SOB, + nausea, + vomiting, + diarrhea, No fevers, No headache, No chest pain, No melena, No urinary symptoms Note: She is having right shoulder pain as well. Review of Systems See HPI for pertinent positives & negatives. A total of 10 systems reviewed and were otherwise negative. Past Medical & Surgical Medical Problems: (1) Abdominal pain (2) Anxiety (3) Asthma, Unspecified (4) Contractions (5) Dehydration (6) Diarrhea (7) Diarrhea (8) Encounter for tubal ligation (9) Endometriosis (10) Epigastric pain (11) Gallbladder sludge (12) GERD (gastroesophageal reflux disease) (13) History of miscarriage (14) Hx of endometriosis (15) Pelvic pain (16) (17) Vomiting Surgical Problems: (1) History of hysterectomy (2) History of wisdom tooth extraction Family History Cancer Diabetes mellitus Gallbladder disease Heart disease Social History Smoking Status: Current Every Day Smoker Alcohol Use: occasionally Drug Use: none Marital Status: single Housing Status: lives with family Occupation Status: employed Current/Historical Medications Scheduled PRN Ranitidine Hcl (Ranitidine Hcl), 150 MG PO BID PRN for Heartburn Allergies Coded Allergies: Amoxicillin (Verified Adverse Reaction, Mild, NAUSEA AND VOMITING, 11/14/16 ) Clavulanic Acid (Verified Adverse Reaction, Mild, NAUSEA AND VOMITING, ) Guaifenesin (Verified Adverse Reaction, Mild, N/V, 11/14/16) Phenylephrine (Verified Adverse Reaction, Mild, N/V, 11/14/16) Phenylpropanolamine (Verified Adverse Reaction, Mild, N/V, 11/14/16) Physical Exam Vital Signs Date Time Temp Pulse Resp B/P (MAP) Pulse Ox O2 Delivery O2 Flow Rate FiO2 11/14/16 20:53 37.0 106 16 125/82 99 11/14/16 20:45 89 16 99 Room Air 11/14/16 18:46 37.0 106 16 125/82 99 Room Air Physical Exam GENERAL: alert, well appearing, well nourished, no distress, non-toxic, sitting up in bed EYE EXAM: normal conjunctiva OROPHARYNX: no exudate, no erythema, lips, buccal mucosa, and tongue normal and mucous membranes are moist NECK: supple, no nuchal rigidity, no adenopathy, non-tender LUNGS: Clear to auscultation. Normal chest wall mechanics HEART: no murmurs, S1 normal and S2 normal ABDOMEN: abdomen soft, epigastric tenderness to palpation, normo-active bowel sounds, no masses, no rebound or guarding. BACK: Back is symmetrical on inspection and there is no deformity, no midline tenderness, no CVA tenderness. SKIN: no rashes and no bruising UPPER EXTREMITIES: upper extremities are grossly normal. LOWER EXTREMITIES: No pitting edema. Calves equal bilaterally. NEURO EXAM: Normal sensorium, cranial nerves II-XII grossly intact, normal speech, no gross weakness of arms, no gross weakness of legs. Medical Decision & Procedures ER Provider Diagnostic Interpretation: Radiology results as stated below per my review and the radiologist's interpretation: ULTRASOUND RIGHT UPPER QUADRANT ABDOMEN CLINICAL HISTORY: Right upper quadrant abdominal pain. COMPARISON STUDY: Abdominal ultrasound and abdominal CT dated 07/17/2016. TECHNIQUE: Real-time, grayscale, and color flow sonography of the right upper quadrant of the abdomen was performed. Images are reviewed in the transverse and longitudinal planes. FINDINGS: Liver: The liver is normal in size and echotexture. There is no intrahepatic biliary ductal dilatation. The main portal vein is patent. Gallbladder: The gallbladder is normal in appearance. No gallstones are identified. There is no gallbladder wall thickening or pericholecystic fluid. A sonographic Doyle's sign is reportedly absent. The common bile duct measures up to 0.4 cm in diameter. Pancreas: Visualized portions of the pancreatic head and body are normal in appearance. The splenic vein is patent. Right kidney: Survey images of the right kidney demonstrate normal size and echotexture. There is no hydronephrosis. Ascites: None. IMPRESSION: Unremarkable sonographic assessment of the right upper quadrant. No gallstones are identified and there has been no change from recent prior studies Electronically signed by: Manuel Winston M.D. 11/14/2016 7:50 PM Dictated Date/Time: 11/14/2016 7:49 PM Laboratory Results 11/14/16 19:10 Red Blood Count 5.26, Mean Corpuscular Volume 89.0, Mean Corpuscular Hemoglobin 29.1, Mean Corpuscular Hemoglobin Concent 32.7, Mean Platelet Volume 9.6, Neutrophils (%) (Auto) 69.6, Lymphocytes (%) (Auto) 24.3, Monocytes (%) (Auto) 4.5, Eosinophils (%) (Auto) 1.1, Basophils (%) (Auto) 0.4, Neutrophils # (Auto) 7.90, Lymphocytes # (Auto) 2.76, Monocytes # (Auto) 0.51, Eosinophils # (Auto) 0.13, Basophils # (Auto) 0.04 11/14/16 19:10 Test 11/14/16 19:00 11/14/16 19:10 Urine Color DK YELLOW Urine Appearance CLEAR (CLEAR) Urine pH 6.0 (4.5-7.5) Urine Specific [place] 1.035 (1.000-1.030) Urine Protein NEG (NEG) Urine Glucose (UA) NEG (NEG) Urine Ketones TRACE (NEG) Urine Occult Blood NEG (NEG) Urine Nitrite NEG (NEG) Urine Bilirubin NEG (NEG) Urine Urobilinogen NEG (NEG) Urine Leukocyte Esterase NEG (NEG) Urine WBC (Auto) 1-5 /hpf (0-5) Urine RBC (Auto) 0-4 /hpf (0-4) Urine Hyaline Casts (Auto) 1-5 /lpf (0-5) Urine Epithelial Cells (Auto) 20-30 /lpf (0-5) Urine Bacteria (Auto) NEG (NEG) Urine Test NEG (NEG) White Blood Count 11.35 K/uL (4.8-10.8) Red Blood Count 5.26 M/uL (4.2-5.4) Hemoglobin 15.3 g/dL (12.0-16.0) Hematocrit 46.8 % (37-47) Mean Corpuscular Volume 89.0 fL (80-100) Mean Corpuscular Hemoglobin 29.1 pg (25-34) Mean Corpuscular Hemoglobin Concent 32.7 g/dl (32-36) Platelet Count 275 K/uL (130-400) Mean Platelet Volume 9.6 fL (7.4-10.4) Neutrophils (%) (Auto) 69.6 % Lymphocytes (%) (Auto) 24.3 % Monocytes (%) (Auto) 4.5 % Eosinophils (%) (Auto) 1.1 % Basophils (%) (Auto) 0.4 % Neutrophils # (Auto) 7.90 K/uL (1.4-6.5) Lymphocytes # (Auto) 2.76 K/uL (1.2-3.4) Monocytes # (Auto) 0.51 K/uL (0.11-0.59) Eosinophils # (Auto) 0.13 K/uL (0-0.5) Basophils # (Auto) 0.04 K/uL (0-0.2) RDW Standard Deviation 45.2 fL (36.4-46.3) RDW Coefficient of Variation 13.8 % (11.5-14.5) Immature Granulocyte % (Auto) 0.1 % Immature Granulocyte # (Auto) 0.01 K/uL (0.00-0.02) Anion Gap 5.0 mmol/L (3-11) Est Creatinine Clear Calc Drug Dose 78.4 ml/min Estimated GFR () 89.3 Estimated GFR (Non- 77.0 BUN/Creatinine Ratio 17.1 (10-20) Calcium Level 8.9 mg/dl (8.5-10.1) Total Bilirubin 0.9 mg/dl (0.2-1) Direct Bilirubin 0.2 mg/dl (0-0.2) Aspartate Amino Transf (AST/SGOT) 15 U/L (15-37) Alanine Aminotransferase (ALT/SGPT) 32 U/L (12-78) Alkaline Phosphatase 49 U/L (45-117) Total Protein 8.8 gm/dl (6.4-8.2) Albumin 5.0 gm/dl (3.4-5.0) Lipase 385 U/L (73-393) Laboratory results per my review. Medications Administered Medications (Trade) Dose Ordered Sig/Juni Route Start Time Stop Time Status Last Admin Dose Admin Sodium Chloride 1,000 ml @ 999 mls/hr Q1H1M STAT IV 11/14/16 18:53 11/14/16 19:53 DC 11/14/16 19:20 999 MLS/HR Ondansetron HCl (Zofran Inj) 4 mg NOW STAT IV 11/14/16 18:53 11/14/16 18:55 DC 11/14/16 19:19 4 MG Morphine Sulfate (MoRPHine SULFATE INJ) 4 mg NOW STAT IV 11/14/16 18:53 11/14/16 18:55 DC 11/14/16 19:19 4 MG Miscellaneous Medication (Gi Cocktail) 24 ml NOW STAT PO 11/14/16 18:54 11/14/16 18:55 DC 11/14/16 19:19 24 ML ED Course ED COURSE: Vital signs were reviewed and showed tachycardia. The patients medical record was reviewed The above diagnostic studies were performed and reviewed. ED treatments and interventions as stated above. 1848: The patient was evaluated in room B12B. A complete history and physical examination was performed. 1853: Ordered Morphine Sulfate 4 mg IV, Zofran Inj 4 mg IV, Sodium Chloride 1000 ml @ 999 mls/hr IV 1854: Ordered Gi Cocktail 24 ml PO 0: Ordered Lidocaine HCl 20 ml .ROUTE, Maalox Susp 30 ml .ROUTE 2002: The patient's pain is improved. 2015: Upon reevaluation, the patient is resting. I discussed my findings with the patient and she understands and agrees with the treatment plan. The patient remained stable while under my care. The patient appeared well at the time of discharge. Medical Decision Differential diagnoses includes but is not limited to gastritis, peptic ulcer disease, GERD, gallbladder disease, pancreatitis, small bowel obstruction, acute coronary syndrome, pericarditis, ischemic bowel, irritable bowel disease, irritable bowel syndrome, appendicitis, diverticulitis, malignancy, hernia, urinary tract infection, torsion, perforation, trauma, infectious. Patient is a 31-year-old female who presents the ER for epigastric abdominal pain which has been going on since Thursday. Patient notes that she has had her gallbladder evaluated previously. Previous HIDA scan was unremarkable. Abdominal exam is fairly benign but with minimal tenderness in the epigastric region. Ultrasound was unremarkable. CBC along with BMP, LFTs and bilirubin was unremarkable. Lipase is normal. Her pain was reproducible on exam. She notes it has been improving with the ranitidine. I do favor this likely gastritis in nature. She has no chest pain or pleuritic pain. No cough or productive sputum. Patient was given morphine and fluids. She felt slightly better. She was discharged follow-up with PCP. Discussed with Pt concerning signs and symptoms to watch out for. Pt was instructed to follow up with their PCP and discussed with the patient their option to return to the ED at anytime for persistent or worsening symptoms. The appropriate anticipatory guidance and out-patient management, including indications for return to the emergency department, were explained at length to the patient and understood. Medication Reconcilliation Current Medication List: was personally reviewed by me Blood Pressure Screening Patient's blood pressure: Normal blood pressure Blood pressure disposition: Did not require urgent referral Impression Primary Impression: Right upper quadrant abdominal pain Scribe Attestation The scribe's documentation has been prepared under my direction and personally reviewed by me in its entirety. I confirm that the note above accurately reflects all work, treatment, procedures, and medical decision making performed by me. Departure Information Dispostion Home / Self-Care Referrals William Valdez, (PCP) Forms HOME CARE DOCUMENTATION FORM, IMPORTANT VISIT INFORMATION Patient Instructions Abdominal Pain - [facility], [facility] Additional Instructions Please follow up with your primary care doctor with in the next 24 hours. Any worsening of your symptoms, please return to the ED immediately. This includes any fevers greater than 100.4, worsening pain, chest pain, shortness breath, persistent nausea, vomiting, unable to eat or drink, or any other concerning signs or symptoms from your standpoint. Please continue your ranitidine. You were given medications during this visit that will inhibit your ability to drive, operate machinery and work. Please do NOT drive, operate machinery, drink alcohol or work for the next 12hrs.
== END 2016-11-14 20:45 | disposition home or self-care (01) ==
LOC: C.EDB 18:42
DX: R10.11 Right upper quadrant pain (principal); R10.13 Epigastric pain; R11.2 Nausea with vomiting, unspecified; R19.7 Diarrhea, unspecified; F41.9 Anxiety disorder, unspecified; K21.9 Gastro-esophageal reflux disease without esophagitis; J45.909 Unspecified asthma, uncomplicated; Z87.19 Personal history of other diseases of the digestive system; Z82.49 Family history of ischemic heart disease and other diseases of the circulatory system; Z83.3 Family history of diabetes mellitus; F17.200 Nicotine dependence, unspecified, uncomplicated

== ENCOUNTER 2017-04-30 08:53 | Emergency (ER) | payer BC ==
[~2017-04-30] VITALS: Ht 167.6 cm; Wt 63.0 kg
[~2017-04-30 08:53] MED LIST changes: -MELO15TA4 PO; +RANI150C4 PO; -RIZA1TAB11 PO
[2017-04-30 08:54] VITALS: Ht 167.6 cm; Wt 63.0 kg
[2017-04-30] MEDS ORDERED: SODIUM CHLORIDE 0.9% 1000ML 1,000 ML IV STA (09:45)
[2017-04-30] MEDS ORDERED: ONDANSETRON INJ 2 MG/ML 2 ML VIAL IV STA (09:45)
[2017-04-30] MEDS ORDERED: MoRPHine SULFATE 4 MG/ML 1 ML CARP\\VIAL IV STA ×2 (09:45→11:11)
[2017-04-30] MEDS ORDERED: PRLSR20 PO (09:50)
[2017-04-30] MEDS ORDERED: IMD/2 PO (09:50)
[2017-04-30 09:52] LABS: BASO % 0.4 %; BASO ABS # 0.03 K/uL (0-0.2); EOS % 2.7 %; EOS ABS # 0.18 K/uL (0-0.5); HEMATOCRIT 46.2 % (37-47); HEMOGLOBIN 15.4 g/dL (12.0-16.0); IG# 0.01 K/uL (0.00-0.02); LYMPH % 18.9 %; LYMPH ABS # 1.27 K/uL (1.2-3.4); MEAN CELL VOLUME 90.8 fL (80-100); MEAN CORPUSCULAR HEMOGLOBIN 30.3 pg (25-34); MEAN CORPUSCULAR HGB CONC 33.3 g/dl (32-36); MEAN PLATELET VOLUME 10.4 fL (7.4-10.4); MONO ABS # 0.27 K/uL (0.11-0.59); NEUT % 73.9 %; NEUT ABS # 4.96 K/uL (1.4-6.5); PLATELET COUNT 203 K/uL (130-400); RED CELL DISTRIBUTION WIDTH CV 13.4 % (11.5-14.5); RED CELL DISTRIBUTION WIDTH SD 44.2 fL (36.4-46.3); WHITE BLOOD COUNT 6.72 K/uL (4.8-10.8)
[2017-04-30 10:00] LABS: ALBUMIN 4.3 gm/dl (3.4-5.0); CALCIUM 9.2 mg/dl (8.5-10.1); CREATININE 1.02 mg/dl (0.60-1.20); POTASSIUM 4.3 mmol/L (3.5-5.1)
[2017-04-30 10:03] LABS: TOTAL PROTEIN 7.9 gm/dl (6.4-8.2)
--- NOTE | 2017-04-30 10:47 | DIAGNOSTIC IMAGING REPORT ---
BILIARY ULTRASOUND CLINICAL HISTORY: Epigastric pain COMPARISON STUDY: November 14, 2016 FINDINGS: The liver appears sonographically normal. The pancreas appears sonographically normal. No gallstones are visualized. There is no pericholecystic fluid. There is no ductal dilatation. The common bile duct measures 6 mm. There is mild fullness of the right renal pelvis. IMPRESSION: 1. Ultrasonographically normal gallbladder and pancreas and liver. No ductal dilatation 2. Mild fullness of the right renal pelvis Electronically signed by: Jacinto Dial M.D. 04/30/2017 10:46 AM Dictated Date/Time: 04/30/2017 10:44 AM
[2017-04-30 11:00] VITALS: TEMP 36.8
[2017-04-30 11:40] VITALS: BP 116/65; PULSE 68; O2SAT 98
--- NOTE | 2017-04-30 18:15 | EMERGENCY ROOM VISIT NOTE ---
ED Visit Note First contact with patient: 09:01 Chief Complaint: Abdominal pain. History of Present Illness: Ms. Carrillo is a 31 year-old white female who ambulates into the ED complaining of epigastric abdominal pain. Historically patient reports gallbladder disease and status post tubal ligation and hysterectomy. Patient reports a gradual onset of epigastric abdominal pain that started 3 days ago. Since that time her pain has been constant and gradually increasing in intensity. She pain is currently described as "sensations of a soft ball" stuck in her epigastrium. The pain is radiating into the area between the shoulder blades and the left ribs. The pain worsens eating. She has not identified any alleviating factors related to the pain. Associated with her pain she reports on the first day she had a few episodes of watery stools and took Imodium with relief of her diarrhea, she has been nauseated and has been having intermittent vomiting. She has not taken any medications for her discomfort prior to arrival at the hospital. Issue with her ongoing symptoms she reports over the last 3 months she believes she has lost 20 pounds. She does report she has a appointment with gastroenterology at the end of April. Patient denies fevers, chills, sweats, skin eruptions, skin color changes, upper respiratory tract symptoms, shortness of breath, chest pain, constipation , rectal bleeding, black/tarry stools, urinary symptoms, hematuria, vaginal bleeding, vaginal discharge. Review of Systems: As noted above in history of present illness. All body systems were reviewed and found to be negative as noted above. Past Medical History: As noted above and migraine headaches, asthma, bronchitis , pneumonia and status post wisdom teeth extraction. Current Medications: Ranitidine, Prilosec and Imodium. Allergies to Medications: Augmentin, guaifenesin, phenylephrine, phenylpropanolamine. Social History: Patient is currently employed; she feels safe in her home environment; she admits to tobacco use and denies alcohol use. Physical Examination: Vital Signs: Date Time Temp Pulse Resp B/P (MAP) Pulse Ox O2 Delivery O2 Flow Rate FiO2 04/30/17 11:40 68 16 116/65 98 Room Air 04/30/17 11:00 36.8 71 18 119/67 100 Room Air 04/30/17 08:54 37.1 112 18 132/96 99 Room Air GENERAL: 31-year-old female in mild to moderate distress due to pain, nontoxic- appearing, afebrile and hemodynamically stable. NEUROLOGICAL: Awake, alert and oriented to person, place and time. Answering questions appropriately and following commands. Normal gait. Good hand eye coordination. SKIN: Warm, dry and pink. No soft tissue eruptions or trauma noted. HEENT: Atraumatic and normocephalic. PERRLA. Sclera white and conjunctiva pink. Oral cavity moist and pink. Pharynx is nonerythematous or edematous. Speech normal. No lymphadenopathy. Trachea midline. No jugular venous distention. BACK: No tenderness over the bony spine. No CVA tenderness. THORAX: Lungs sounds are clear to auscultation and equal bilaterally with symmetrical chest wall. No wheezing, rales or rhonchi. No crepitus, tenderness , subcutaneous air or deformities noted. HEART: Regular rate and rhythm. No gallops, rubs or murmurs are appreciated. ABDOMEN: Flat and soft with mild to moderate tenderness in the epigastrium and the medial border of the right upper quadrant. Positive bowel sounds in all quadrants. No guarding, rigidity or organomegaly. EXTREMITIES: Moves all extremities well on command and with purpose. All distal neurovascular statuses are intact and equal bilaterally. ED Course: Patient is assessed as noted above. Patient's medication list was reviewed. Laboratory Testing: Test 04/30/17 09:10 04/30/17 09:30 Range/Units White Blood Count 6.72 4.8-10.8 K/uL Red Blood Count 5.09 4.2-5.4 M/uL Hemoglobin 15.4 12.0-16.0 g/dL Hematocrit 46.2 37-47 % Mean Corpuscular Volume 90.8 80-100 fL Mean Corpuscular Hemoglobin 30.3 25-34 pg Mean Corpuscular Hemoglobin Concent 33.3 32-36 g/dl Platelet Count 203 130-400 K/uL Mean Platelet Volume 10.4 7.4-10.4 fL Neutrophils (%) (Auto) 73.9 % Lymphocytes (%) (Auto) 18.9 % Monocytes (%) (Auto) 4.0 % Eosinophils (%) (Auto) 2.7 % Basophils (%) (Auto) 0.4 % Neutrophils # (Auto) 4.96 1.4-6.5 K/uL Lymphocytes # (Auto) 1.27 1.2-3.4 K/uL Monocytes # (Auto) 0.27 0.11-0.59 K/uL Eosinophils # (Auto) 0.18 0-0.5 K/uL Basophils # (Auto) 0.03 0-0.2 K/uL RDW Standard Deviation 44.2 36.4-46.3 fL RDW Coefficient of Variation 13.4 11.5-14.5 % Immature Granulocyte % (Auto) 0.1 % Immature Granulocyte # (Auto) 0.01 0.00-0.02 K/uL Sodium Level 138 136-145 mmol/L Potassium Level 4.3 3.5-5.1 mmol/L Chloride Level 107 98-107 mmol/L Carbon Dioxide Level 28 21-32 mmol/L Anion Gap 4.0 3-11 mmol/L Blood Urea Nitrogen 11 7-18 mg/dl Creatinine 1.02 0.60-1.20 mg/dl Est Creatinine Clear Calc Drug Dose 76.1 ml/min Estimated GFR () 86.1 Estimated GFR (Non- 74.3 BUN/Creatinine Ratio 10.7 10-20 Random Glucose 93 70-99 mg/dl Calcium Level 9.2 8.5-10.1 mg/dl Total Bilirubin 0.8 0.2-1 mg/dl Direct Bilirubin 0.2 0-0.2 mg/dl Aspartate Amino Transf (AST/SGOT) 14 15-37 U/L Alanine Aminotransferase (ALT/SGPT) 42 12-78 U/L Alkaline Phosphatase 43 45-117 U/L Total Protein 7.9 6.4-8.2 gm/dl Albumin 4.3 3.4-5.0 gm/dl Lipase 198 73-393 U/L Urine Color YELLOW Urine Appearance CLEAR CLEAR Urine pH 8.0 4.5-7.5 Urine Specific [place] 1.011 1.000-1.030 Urine Protein NEG NEG Urine Glucose (UA) NEG NEG Urine Ketones NEG NEG Urine Occult Blood NEG NEG Urine Nitrite NEG NEG Urine Bilirubin NEG NEG Urine Urobilinogen NEG NEG Urine Leukocyte Esterase NEG NEG Urine Test NEG NEG Gallbladder Ultrasound: Was reviewed by myself and read by the radiologist showing a normal-appearing gallbladder and pancreas with mild fullness of the right renal pelvis. Patient was hydrated with normal saline and she received 4 mg of morphine IV and 4 mg of Zofran IV for her initial symptoms. Just prior to going over for her ultrasound she reported that she was pain-free and after her ultrasound she reported return of pain due to the procedure. She was given 4 additional milligrams of morphine IV for pain. Patient was reassessed multiple times during her stay in the emergency department. Patient's case was reviewed with Dr. Pina; we agreed on diagnostic approach, treatment, disposition and plan. Patient was educated about today's findings and instructed on her treatment plan ; she verbalizes understanding and agreement with this plan. Clinical Impression: Epigastric abdominal pain. Decision-Making: Initially my differential diagnosis I considered GERD, esophagitis, gastritis, pancreatitis, hepatitis, cholecystitis, and other causes. Disposition: Patient discharged home in stable condition; prior to departure she was reassessed and subjectively reported she was feeling better and rated her discomfort 3/10. Plan: Patient was encouraged use 650 mg of acetaminophen every 6 hours as needed for pain and to avoid NSAIDs. Patient was encouraged use a bland diet for next 48 hours. Patient was encouraged to avoid other gastric irritants including tobacco, alcohol, caffeine, chocolate, spicy food and months. 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 Patient was encouraged return ED for worsening pain, fevers, uncontrolled vomiting, bloody vomitus, bloody stools or any new/concerning symptoms.
== END 2017-04-30 11:50 | disposition home or self-care (01) ==
LOC: C.EDB 08:55
DX: R10.13 Epigastric pain (principal)

== ENCOUNTER 2017-06-16 13:54 | Emergency (ER) | payer BC ==
[~2017-06-16] VITALS: Ht 172.7 cm; Wt 63.5 kg
[~2017-06-16 13:54] MED LIST changes: +IMD/2 PO; +PRLSR20 PO
[2017-06-16 14:01] VITALS: TEMP 37; Ht 172.7 cm; Wt 63.5 kg
[2017-06-16] MEDS ORDERED: AMOX500T PO (14:16)
[2017-06-16] MEDS ORDERED: RIZA5TAB10 PO (14:16)
[2017-06-16] MEDS ORDERED: DICL50TA3 PO (14:16)
[2017-06-16] MEDS ORDERED: IBUP-1050 PO (14:16)
[2017-06-16] MEDS ORDERED: TRAMADOL HCL 50 MG TAB PO STA (14:44)
--- NOTE | 2017-06-16 15:26 | DIAGNOSTIC IMAGING REPORT ---
L FOOT MIN 3 VIEWS ROUTINE, L ANKLE MIN 3 VIEWS ROUTINE HISTORY: 32 years-old Female left foot pain s/p fall acute left foot pain, most pronounced laterally status post fall COMPARISON: None available TECHNIQUE: 3 views of the left foot and 3 views of the left ankle FINDINGS: FOOT: No acute fracture, dislocation or significant degenerative changes. No stress fracture. There is mild soft tissue swelling lateral to the fifth metatarsal. No opaque foreign body. ANKLE: Talar dome is smooth without osteochondral defect. No acute fracture, dislocation or significant degenerative changes. No opaque foreign body. IMPRESSION: Mild soft tissue swelling of the lateral forefoot without acute fracture. The above report was generated using voice recognition software. It may contain grammatical, syntax or spelling errors. Electronically signed by: Alonzo Gama M.D. 06/16/2017 3:24 PM Dictated Date/Time: 06/16/2017 3:22 PM
--- NOTE | 2017-06-16 15:26 | DIAGNOSTIC IMAGING REPORT ---
L KNEE 3 VIEWS HISTORY: 32 years-old Female left knee pain s/p fall acute left knee pain status post fall COMPARISON: None available TECHNIQUE: 3 views of the left knee FINDINGS: No acute fracture, dislocation or significant degenerative changes. No opaque foreign body or large joint effusion. Mild soft tissue swelling about the knee. IMPRESSION: Mild soft tissue swelling without fracture. The above report was generated using voice recognition software. It may contain grammatical, syntax or spelling errors. Electronically signed by: Alonzo Gama M.D. 06/16/2017 3:25 PM Dictated Date/Time: 06/16/2017 3:24 PM
[2017-06-16 15:57] VITALS: BP 116/82; PULSE 78; O2SAT 100
--- NOTE | 2017-06-16 16:11 | EMERGENCY ROOM VISIT NOTE ---
ED Visit Note First contact with patient: 14:37 CHIEF COMPLAINT: Left knee, ankle, foot pain after fall last night HISTORY OF PRESENT ILLNESS: This 32-year-old female patient presents to the emergency department, ambulatory, approximately 1 day after sustaining an injury to the left ankle, foot, and knee after a fall down the basement stairs. The patient states she was carrying too much, and tripped, falling down a few stairs, and landing on her left leg. She states she does have bruises on her superficial left knee, as well as the top of the foot. The patient denies significant swelling. There is pain with any movement of the foot, ankle, and knee, and with weightbearing. They rate the pain as sharp and 7/10. The patient states they are able to walk on it. No numbness or tingling. No previous injuries to this extremity. REVIEW OF SYSTEMS: A 6 system review of systems was completed with positives and pertinent negatives listed in the HPI. ALLERGIES: Augmentin MEDICATIONS: "A muscle relaxer", Maxalt PMH: Migraines, chronic back pain SOCIAL HISTORY: The patient lives locally with family. She denies drug, alcohol use. She admits to smoking 1 pack of cigarettes per day. PHYSICAL EXAM: Vital Signs: Reviewed Nurse's notes, vital signs stable. GENERAL : This is a 32-year-old white female, no acute distress, but appears in pain, well-developed, well-nourished. MENTAL STATUS: Alert, oriented to person place and time, and cooperative. MUSCULOSKELETAL: The left knee is mildly swollen. The dorsal aspect of the left foot and anterior ankle is mildly swollen. There is mild bruising on this portion of the there is no ecchymosis, but there is a slight contusion on the superior anterior aspect of the knee. There is no joint effusion present. The patient is tender throughout the entire foot, ankle , and superior anterior knee. The patella does appropriately subluxate. Range of motion is full in all joints. Strength of the quads and hamstrings is 5/5. Lani's is negative. Soraida's and Anterior Drawer tests are negative. There is no discomfort or laxity with varus and valgus stressing. The foot and toes are warm and well-perfused. Dorsalis pedis pulse 2+. Sensation to pain and light touch is intact. Capillary refill less than 2 seconds. RADIOLOGY: L KNEE 3 VIEWS HISTORY: 32 years-old Female left knee pain s/p fall acute left knee pain status post fall COMPARISON: None available TECHNIQUE: 3 views of the left knee FINDINGS: No acute fracture, dislocation or significant degenerative changes. No opaque foreign body or large joint effusion. Mild soft tissue swelling about the knee. IMPRESSION: Mild soft tissue swelling without fracture. The above report was generated using voice recognition software. It may contain grammatical, syntax or spelling errors. Electronically signed by: Alonzo Gama M.D. 06/16/2017 3:25 PM Dictated Date/Time: 06/16/2017 3:24 PM L FOOT MIN 3 VIEWS ROUTINE, L ANKLE MIN 3 VIEWS ROUTINE HISTORY: 32 years-old Female left foot pain s/p fall acute left foot pain, most pronounced laterally status post fall COMPARISON: None available TECHNIQUE: 3 views of the left foot and 3 views of the left ankle FINDINGS: FOOT: No acute fracture, dislocation or significant degenerative changes. No stress fracture. There is mild soft tissue swelling lateral to the fifth metatarsal. No opaque foreign body. ANKLE: Talar dome is smooth without osteochondral defect. No acute fracture, dislocation or significant degenerative changes. No opaque foreign body. IMPRESSION: Mild soft tissue swelling of the lateral forefoot without acute fracture. The above report was generated using voice recognition software. It may contain grammatical, syntax or spelling errors. Electronically signed by: Alonzo Gama M.D. 06/16/2017 3:24 PM Dictated Date/Time: 06/16/2017 3:22 PM EMERGENCY DEPARTMENT COURSE: I examined the patient. The patient reports very severe pain, and states she has taken diclofenac, Tylenol, and ibuprofen without any relief in her pain. She states she has taken a high dose of ibuprofen as well as diclofenac already today. I verify that the patient was not driving, and would not be driving home prior to giving narcotics. The patient states her mother drove her here, and is running errands at this time, but states her mother will be driving her home. She was given 50 mg tramadol. X-rays of the left knee, ankle, and foot were reviewed by myself and read by radiology and reveal no acute bony abnormalities. The patient was given an Jaskaran wrap to help with compression and discomfort. The patient was instructed on the use of crutches. The patient was discharged home in good condition. Per nursing staff, they also questioned the patient's right home, and were told again that her mother would be picking her up. Nursing staff did observe the patient leave with her car keys, get into her car, and drive away. I attest that I have personally reviewed the patient's current medication list. Patient was found to have normal blood pressure on screening and does not require follow-up. Etiologies such as soft tissue injury, fracture, dislocation, neurovascular compromise, compartment syndrome, as well as others were entertained. DIAGNOSIS: Fall, left knee and lower extremity contusion Problem List Medical Problems: (1) Abdominal pain Status: Resolved (2) Anxiety Status: Chronic (3) Contractions Status: Resolved (4) Dehydration Status: Resolved (5) Diarrhea Status: Resolved (6) Diarrhea Status: Resolved (7) Encounter for tubal ligation Status: Resolved (8) Endometriosis Status: Resolved (9) Epigastric pain Status: Resolved (10) Gallbladder sludge Status: Resolved (11) GERD (gastroesophageal reflux disease) Status: Chronic (12) History of miscarriage Status: Resolved (13) Hx of endometriosis Status: Resolved (14) Pelvic pain Status: Resolved (15) Status: Resolved (16) Vomiting Status: Resolved Surgical Problems: (1) History of hysterectomy Status: Resolved (2) History of wisdom tooth extraction Status: Resolved Current/Historical Medications Scheduled PRN Loperamide Hcl (Imodium), 2 MG PO UD PRN for GI Upset Omeprazole (Prilosec), 20 MG PO DAILY PRN for HEARTBURN Ranitidine Hcl (Ranitidine Hcl), 150 MG PO BID PRN for Heartburn Miscellaneous Medications Diclofenac (Voltaren), 50 MG PO Ibuprofen (Advil), 200 MG PO Rizatriptan Benzoate (Maxalt), 5 MG PO Allergies Coded Allergies: Amoxicillin (Verified Adverse Reaction, Mild, NAUSEA AND VOMITING, 06/16/17 ) Clavulanic Acid (Verified Adverse Reaction, Mild, NAUSEA AND VOMITING, ) Guaifenesin (Verified Adverse Reaction, Mild, N/V, 06/16/17) Phenylephrine (Verified Adverse Reaction, Mild, N/V, 06/16/17) Phenylpropanolamine (Verified Adverse Reaction, Mild, N/V, 06/16/17) Vital Signs Date Time Temp Pulse Resp B/P (MAP) Pulse Ox O2 Delivery O2 Flow Rate FiO2 06/16/17 15:57 78 16 116/82 100 Room Air 06/16/17 14:01 37.0 88 15 120/82 100 Room Air Medications Administered Medications (Trade) Dose Ordered Sig/Juni Route Start Time Stop Time Status Last Admin Dose Admin Tramadol HCl (Ultram Tab) 50 mg NOW STAT PO 06/16/17 14:44 06/16/17 14:46 DC 06/16/17 14:57 50 MG Departure Information Impression Primary Impression: Fall Additional Impressions: Contusion of left foot Contusion of left knee Dispostion Home / Self-Care Condition GOOD Referrals William Valdez DO (PCP) Patient Instructions ED Contusion Lower Ext, My [facility] Additional Instructions ORTHOPEDIC INSTRUCTIONS: DO NOT drive, drink alcohol, operate machinery, or perform dangerous activities today. You were given medications in the ER that can affect your ability to safely function or operate a vehicle. Ibuprofen(Motrin, Advil) may be used for fever or pain. Use 600mg every six hours as needed. Take with food. Avoid using more than 2400mg in a 24 hour period. Do not use 2400mg per day for more than three consecutive days without physician direction. Prolonged inappropriate use can lead to stomach upset or ulcers. (AND/OR) Acetaminophen(Tylenol) may be used for fever or pain. Use 1000mg every six hours as needed. Avoid using more than 3000mg in a 24 hour period. Ice compresses for 20 minutes at a time four times daily for 2-3 days. Use the crutches as instructed to help with weight-bearing. Rest and elevate your injury. Use the JASKARAN wrap for comfort. Return to the ER immediately for any numbness, tingling, severe pain, extreme swelling in the extremity or as needed. Call [facility], [phone], if no improvement in 1 week, to arrange follow up for your injury. Follow-up with your primary care physician in 2 to 3 days for a recheck of your current condition. Problem Qualifiers Primary Impression: Fall Encounter type: initial encounter Qualified Codes: W19.XXXA - Unspecified fall, initial encounter Additional Impressions: Contusion of left foot Encounter type: initial encounter Qualified Codes: S90.32XA - Contusion of left foot, initial encounter Contusion of left knee Encounter type: initial encounter Qualified Codes: S80.02XA - Contusion of left knee, initial encounter
== END 2017-06-16 16:20 | disposition home or self-care (01) ==
LOC: C.EDB 13:55 → C.EDD 16:20
DX: S90.32XA Contusion of left foot, initial encounter (principal); S80.02XA Contusion of left knee, initial encounter; W19.XXXA Unspecified fall, initial encounter; F17.200 Nicotine dependence, unspecified, uncomplicated; F41.9 Anxiety disorder, unspecified; K21.9 Gastro-esophageal reflux disease without esophagitis; Z88.8 Allergy status to other drugs, medicaments and biological substances

== ENCOUNTER 2023-07-27 18:47 | Observation (INO) ==
--- NOTE | 2023-07-27 19:14 | Emergency Department Note ---
Impression & Plan Witnessed seizure-like activity, Syncope, Elevated troponin, Adverse effect of herbal medication ED Provider Note NAME: KATEY OROPEZA AGE: 38 SEX: F : 1985 ARRIVES VIA: Ambulance INFORMANT: Patient ED PROVIDER(S): Renato Barajas MD CHIEF COMPLAINT: Witnessed seizure-like activity. 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 Patient did not have recollection of the event when she awoke to by standards. She reports that she even thought that they were "talking about someone else". Patient denies any prior history of similar episodes. Denies any recent illness including fevers, chills, cough, congestion, GI or symptoms. She denies any alcohol use. She denies any recurrence of drug use. She admits to using kratom daily and reports that this has helped her refrain from returning to other substances. [facility] lists Kratom as a Drug and Chemical of Concern. Per the FDA, Kratom is not lawfully marketed as a drug product, dietary supplement or a food additive. Patient is accompanied by her mother at the bedside. Of note, the patient did arrive to emergency department during time of high volume, acuity and prolonged emergency department waiting times. On evaluation the patient is no distress, afebrile with heart in the 100s and blood pressure 140s/90s and vital signs otherwise stable. She appears clinically dry. She has no focal neurologic deficits. EKG without overt acute ischemia. WBC, H/H and platelets within normal limits. Chemistry without metabolic acidosis. Electrolytes without significant abnormality. Initial high- sensitivity troponin was 17 with delta high-sensitivity troponin 28.6. TSH within normal limits. Pro lactic and is above normal range and so may support epileptic seizure prior to arrival. hCG was negative. UA without evidence of infection. Drug screen was positive for MDMA and is nonspecific. CT of the head and CT of the head and neck were performed were negative for acute abnormalities. Upon evaluation patient did feel improved from hypercoagulation, IV APAP and dexamethasone for component of migraine which have resolved. Given the patient's elevated troponin in the setting of kratom use unclear if patient's episode was provoked by cardiac arrhythmia versus seizure episode directly related to kratom. Patient does report having poor sleep hygiene recently and may have also played a role. Thus, patient and mother at the bedside agree with plan for admission for further management. Case was discussed with [facility] Valenzuela [facility] [place], who will evaluate the patient for admission. Triage Nursing notes reviewed and agree them. Prior/external medical records reviewed Vital Signs: reviewed Differential diagnosis: Epilepsy, infection, hypoglycemia, electrolyte abnormalities, cardiac sources, intracerebral event, trauma, toxicologic, neurologic, syncope, as well as other pathologies. ER treatment provided: See below. Diagnostics interpreted by me: ECG: Sinus tachycardia, 108 bpm, no ectopy, no overt ST elevation or depression, QTc 477, QRS 108. Cardiac Monitoring: An order for continuous cardiac monitoring was placed and demonstrated Sinus tachycardia, 108 bpm, no ectopy. Laboratory studies: See below Imaging studies: See below Consultation(s): Case was discussed with Dr. Valenzuela [facility] hospitalist, who will evaluate the patient for admission. 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 Patient did not have recollection of the event when she awoke to by standards. She reports that she even thought that they were "talking about someone else". Patient denies any prior history of similar episodes. Denies any recent illness including fevers, chills, cough, congestion, GI or symptoms. She denies any alcohol use. She denies any recurrence of drug use. She admits to using kratom daily and reports that this has helped her refrain from returning to other substances. [facility] lists Kratom as a Drug and Chemical of Concern. Per the FDA, Kratom is not lawfully marketed as a drug product, dietary supplement or a food additive. Patient is accompanied by her mother at the bedside. ROS: See above HPI for pertinent positives & negatives. A total of 10 systems reviewed and were otherwise negative. VITALS:See Below PHYSICAL EXAMINATION: GENERAL: Awake, alert, fatigued-appearing, in no distress HENT: Normocephalic, atraumatic. Oropharynx with dry mucous membranes and otherwise unremarkable. EYES: Normal conjunctiva. Sclera non-icteric. EOMI. No nystamgus. PEARRL. NECK: Supple. No nuchal rigidity. FROM. No JVD. RESPIRATORY: Clear to auscultation. CARDIAC: Tachycardic rate, normal rhythm. Extremities warm and well perfused. Pulses equal. ABDOMEN: Soft, non-distended. No tenderness to palpation. No rebound or guarding. No masses. MUSCULOSKELETAL: Chest examination reveals no tenderness. The back is symmetrical on inspection without obvious abnormality. There is no CVA tenderness to palpation. No joint edema. LOWER EXTREMITIES: Calves are equal size bilaterally and non-tender. No edema. No discoloration. NEURO: Normal sensorium. No sensory or motor deficits noted. DTRs wnl. No clonus. SKIN: No rash or jaundice noted. Renato Barajas MD Past Med/Surg History Medical History Migraine headache Opioid abuse, in remission Social History Smoking Status: Current every day smoker Tobacco Type: Cigarettes Hx Alcohol Use: No Hx Substance Use: Yes Substance Use Type Other:: [place] Preferred Language: Belgian Communication Ability: Effective [place] Required: No Beliefs That Will Affect Care: None Current Living Situation: Parent Other Information That Helps Us Care for You: No Feels Safe at Home: Yes Safety Concerns: Feels Safe At This Time Allergies Allergies Allergy/AdvReac Type Severity Reaction Status Date / Time amoxicillin AdvReac Mild NAUSEA AND Verified 07/28/23 01:59 VOMITING clavulanic acid AdvReac Mild NAUSEA AND Verified 07/28/23 01:59 VOMITING guaifenesin AdvReac Mild N/V Verified 07/28/23 01:59 phenylephrine AdvReac Mild N/V Verified 07/28/23 01:59 phenylpropanolamine AdvReac Mild N/V Verified 07/28/23 01:59 Home Meds Home Medications Medication Instructions Recorded Confirmed Kratom 1 tab PO DIRECTED PRN Pain 07/28/23 07/28/23 ibuprofen 200 mg tablet 400 mg PO Q6H PRN Pain 07/28/23 07/28/23 Results & Data (ED) Vital Signs Vital Signs - 24 hr 07/27/23 18:55 07/27/23 18:55 07/27/23 19:00 Temperature 37.1 C Temperature Source Oral Pulse Rate 108 H 109 H 106 H Pulse Rate from SpO2 Sensor 108 H Pulse Rhythm Regular Respiratory Rate 22 10 L Respiratory Effort / Characteristics Non-Labored Spontaneous Respiratory Depth Normal Blood Pressure 146/90 H Blood Pressure Mean 108 Pulse Oximetry 97 99 Oxygen Delivery Method Room Air Room Air Sepsis Recent Fever Within 48 Hours No Sepsis New/Unexplained Change in Mental Status No Sepsis Action Taken by Nursing No Action Required 07/27/23 20:00 07/27/23 20:32 07/27/23 20:32 Temperature Temperature Source Pulse Rate 98 H 87 Pulse Rate from SpO2 Sensor 99 H 87 Pulse Rhythm Respiratory Rate 12 12 Respiratory Effort / Characteristics Respiratory Depth Blood Pressure 123/83 Blood Pressure Mean 96 Pulse Oximetry 99 99 98 Oxygen Delivery Method Room Air Room Air Room Air Sepsis Recent Fever Within 48 Hours Sepsis New/Unexplained Change in Mental Status Sepsis Action Taken by Nursing 07/27/23 21:00 07/27/23 22:00 07/27/23 22:34 Temperature Temperature Source Pulse Rate 86 78 78 Pulse Rate from SpO2 Sensor 86 78 76 Pulse Rhythm Respiratory Rate 19 15 22 Respiratory Effort / Characteristics Respiratory Depth Blood Pressure 121/59 L Blood Pressure Mean 79 Pulse Oximetry 98 98 98 Oxygen Delivery Method Room Air Room Air Room Air Sepsis Recent Fever Within 48 Hours Sepsis New/Unexplained Change in Mental Status Sepsis Action Taken by Nursing 07/27/23 23:00 07/27/23 23:00 07/28/23 00:06 Temperature Temperature Source Pulse Rate 69 71 67 Pulse Rate from SpO2 Sensor 70 65 Pulse Rhythm Respiratory Rate 14 12 Respiratory Effort / Characteristics Respiratory Depth Blood Pressure 126/81 119/75 Blood Pressure Mean 96 89 Pulse Oximetry 98 97 Oxygen Delivery Method Room Air Room Air Sepsis Recent Fever Within 48 Hours Sepsis New/Unexplained Change in Mental Status Sepsis Action Taken by Nursing 07/28/23 01:00 Temperature Temperature Source Pulse Rate 58 L Pulse Rate from SpO2 Sensor 58 L Pulse Rhythm Respiratory Rate 15 Respiratory Effort / Characteristics Respiratory Depth Blood Pressure 130/72 Blood Pressure Mean 91 Pulse Oximetry 97 Oxygen Delivery Method Room Air Sepsis Recent Fever Within 48 Hours Sepsis New/Unexplained Change in Mental Status Sepsis Action Taken by Nursing Laboratory Data Attestation: I reviewed the patient's lab results. 07/27/23 19:59 07/27/23 19:59 Lab Results 07/27/23 07/27/23 07/27/23 Range/Units 19:25 19:59 22:54 WBC 5.80 (4.8-10.8) K/ul RBC 4.43 (4.20-5.40) M/uL Hgb 13.6 (12.0-16.0) g/dl Hct 40.9 (37.0-47.0) % MCV 92.3 (80.0-100.0) fL MCH 30.7 (25.0-34.0) pg MCHC 33.3 (32.0-36.0) g/dL RDW Std Deviation 47.8 H (36.4-46.3) fL RDW Coeff of Selena 14.2 (11.5-14.5) % Plt Count 176 (130-400) K/uL MPV 11.1 (9.4-12.4) fL Immature Gran % (Auto) 0.2 % Neut % (Auto) 72.0 % Lymph % (Auto) 20.3 % [place] % (Auto) 6.7 % Eos % (Auto) 0.3 % Baso % (Auto) 0.5 % Neut # (Auto) 4.17 (1.40-6.50) K/uL Lymph # (Auto) 1.18 L (1.20-3.40) K/uL [place] # (Auto) 0.39 (0.11-0.59) K/uL Eos # (Auto) 0.02 (0.00-0.50) K/uL Baso # (Auto) 0.03 (0.00-0.20) K/uL Immature Gran # (Auto) 0.01 (0.01-0.20) K/uL PT 10.9 (9.0-12.0) Seconds INR 1.0 (0.9-1.1) Sodium 138 (136-145) mmol/L Potassium 4.0 (3.5-5.1) mmol/L Chloride 108 H (98-107) mmol/L Carbon Dioxide 23 (21-32) mmol/L Anion Gap 7 (3-11) BUN 16 (6-23) mg/dl Creatinine 1.01 (0.6-1.2) mg/dl Est Cr Clr Drug Dosing 70.0 ml/min Est GFR ( Amer) 82.9 ml/min Est GFR (Non-Af Amer) 71.6 ml/min BUN/Creatinine Ratio 15.8 (10-20) Glucose 107 H (70-99(Fasting)) mg/dl Calcium 8.2 L (8.6-10.3) mg/dl Phosphorus 2.3 L (2.5-4.9) mg/dl Magnesium 1.7 (1.7-2.4) mg/dl Total Bilirubin 0.6 (0.2-1.0) mg/dl AST 20 (13-39) U/L ALT 23 (7-52) U/L Alkaline Phosphatase 45 (34-104) U/L Total Creatine Kinase 159 (26-192) U/L Troponin I High Sens 17.2 H 28.6 H D (0-14) pg/ml Total Protein 7.1 (6.0-8.3) gm/dl Albumin 4.3 (3.4-5.0) gm/dl Globulin 2.8 (2.5-4.0) gm/dl Albumin/Globulin Ratio 1.5 (0.9-2) TSH 2.988 (0.300-4.500) uIu/ml Prolactin 38.11 ng/ml HCG, Qual Negative (Negative) Urine Color Dark Yellow Urine Appearance Clear (Clear) Urine pH 5.0 (4.5-7.5) Ur Specific [place] 1.028 (1.000-1.030) Urine Protein 1+ H (Negative) Urine Glucose (UA) Negative (Negative) Urine Ketones Trace H (Negative) Urine Blood Negative (Negative) Urine Nitrite Negative (Negative) Urine Bilirubin Negative (Negative) Urine Urobilinogen Negative (Negative) Ur Leukocyte Esterase Trace H (Negative) Urine WBC (Auto) 0-5 (0-5) /hpf Urine RBC (Auto) 0-2 (0-2) /hpf U Hyaline Cast (Auto) 3-5 H (0-2) /lpf U Epithel Cells (Auto) 3-5 H (0-2) /hpf Urine Bacteria (Auto) None Seen (None Seen) Urine Opiates Screen Neg (Neg) Ur Methadone, Qual Neg (Neg) Urine Barbiturates Neg (Neg) Ur Phencyclidine (PCP) Neg (Neg) U Amphetamin/Meth Scrn Neg (Neg) MDMA (Ecstasy) Screen Pos H (Neg) U Benzodiazepines Scrn Neg (Neg) Ur Cocaine Metabolite Neg (Neg) U Marijuana (THC) Screen Neg (Neg) Ethyl Alcohol mg/dL < 10.0 (<10.0) mg/dl Administered Medications Potassium Chloride/Sodium Chloride (Normal Saline W/20 Meq Kcl) 20 meq in 1,000 mls @ 100 mls/hr IV .Q10H STA; Protocol Stop: 07/28/23 11:53 Last Admin: 07/28/23 02:21 Dose: 100 mls/hr Documented By: LATOSHA Discontinued Medications Dexamethasone Sodium Phosphate (DexamethasonePf 10 Mg/Ml Vial) 10 mg IV NOW ONE Stop: 07/27/23 22:13 Last Admin: 07/27/23 23:23 Dose: 10 mg Documented By: LATOSHA Sodium Chloride (Nss) 1,000 mls @ 999 mls/hr IV .Q1H1M SHELBI Stop: 07/27/23 21:15 Last Infusion: 07/27/23 23:24 Dose: Infused Documented By: Admin: 07/27/23 21:59 Dose: 999 mls/hr Documented By: Infusion: 07/27/23 21:59 Dose: Infused Documented By: Admin: 07/27/23 21:58 Dose: 999 mls/hr Documented By: LATOSHA Acetaminophen (Ofirmev) 1,000 mg in 100 mls @ 400 mls/hr IV NOW STA Stop: 07/27/23 22:04 Last Infusion: 07/27/23 22:31 Dose: Infused Documented By: Admin: 07/27/23 21:57 Dose: 400 mls/hr Documented By: LATOSHA Ioversol (Optiray 320 125ml) 118 ml IV ONCE ONE Stop: 07/27/23 22:33 Last Admin: 07/27/23 22:33 Dose: 118 ml Documented By: MALACHI Nicotine (Nicotine 21 Mg/24 Hr Tdsy) 1 patch TD NOW STA Stop: 07/28/23 00:33 Last Admin: 07/28/23 02:23 Dose: 1 patch Documented By: [facility] Imaging Data Radiologist's Impression: Head CT 07/27/23 22:12 Exam(s): CT HEAD Without Contrast EXAM: CT Head Without Intravenous Contrast CLINICAL HISTORY: [place], syncope, seizure. TECHNIQUE: Axial computed tomography images of the head/brain without intravenous contrast. CTDI is 38 mGy and DLP is 546.36 mGy-cm. Automated exposure control was utilized for the study. A dose lowering technique was utilized adhering to the principles of ALARA. COMPARISON: CT head 08/11/2011 FINDINGS: Brain: Unremarkable. No significant white matter disease. No intracranial hemorrhage, mass-effect or midline shift. No abnormal extra axial fluid. No evidence of acute infarct. Ventricles: Unremarkable. No ventriculomegaly. Bones/joints: Unremarkable. No acute fracture. Soft tissues: Unremarkable. Sinuses: There is mild mucosal thickening of the ethmoid and maxillary sinuses. The remaining visualized paranasal sinuses are clear. Mastoid air cells: Unremarkable as visualized. No mastoid effusion. IMPRESSION: No acute intracranial finding. Electronically signed by: Nadeen Méndez MD 07/27/23 23:14 PM Head CTA 07/27/23 22:12 Exam(s): CTA HEAD With Contrast IV Amt: 118 ml opti 320 EXAM: CT Angiography Head With Intravenous Contrast CLINICAL HISTORY: Headache and seizure TECHNIQUE: Axial computed tomographic angiography images of the head with intravenous contrast. 3D and MIPS images were created and reviewed. CTDI is 38.1 mGy and DLP is 546.36 mGy-cm. Automated exposure control was utilized for the study. A dose lowering technique was utilized adhering to the principles of ALARA. MIP reconstructed images were created and reviewed. CONTRAST: Patient received 118 ml opti 320 of IV contrast COMPARISON: No relevant prior studies available. FINDINGS: Right internal carotid artery: No acute findings. Intracranial segment is patent with no significant stenosis. No aneurysm. Right anterior cerebral artery: Unremarkable. No occlusion or significant stenosis. No aneurysm. Right middle cerebral artery: Unremarkable. No occlusion or significant stenosis. No aneurysm. Right posterior cerebral artery: Unremarkable. No occlusion or significant stenosis. No aneurysm. Right vertebral artery: Unremarkable as visualized. Left internal carotid artery: No acute findings. Intracranial segment is patent with no significant stenosis. No aneurysm. Left anterior cerebral artery: Unremarkable. No occlusion or significant stenosis. No aneurysm. Left middle cerebral artery: Unremarkable. No occlusion or significant stenosis. No aneurysm. Left posterior cerebral artery: Unremarkable. No occlusion or significant stenosis. No aneurysm. Left vertebral artery: Unremarkable as visualized. Basilar artery: Unremarkable. No occlusion or significant stenosis. No aneurysm. IMPRESSION: No acute finding of the arteries of the head. Electronically signed by: Nadeen Méndez MD 07/27/23 23:21 PM Neck CTA 07/27/23 22:12 Exam(s): CTA NECK With Contrast IV Amt: 118 ml opti 320 EXAM: CT Angiography Neck With Intravenous Contrast CLINICAL HISTORY: Headache and seizure. TECHNIQUE: Routine carotid CT angiography protocol was performed with intravenous contrast. NASCET criteria using the distal ICAs for comparison were used for evaluation of stenoses. MIPS images were created and reviewed. CTDI is 11 mGy and DLP is 415 mGy-cm. Automated exposure control was utilized for the study. A dose lowering technique was utilized adhering to the principles of ALARA. MIP reconstructed images were created and reviewed. CONTRAST: Patient received 118 ml opti 320 of IV contrast COMPARISON: None. FINDINGS: VASCULATURE: Right common carotid artery: Unremarkable. No occlusion or significant stenosis. No dissection. Right internal carotid artery: Unremarkable. Extracranial segment is patent with no occlusion or significant stenosis. No dissection. Right external carotid artery: Unremarkable. No occlusion. Right vertebral artery: Unremarkable. No occlusion or significant stenosis. No dissection. Left common carotid artery: Unremarkable. No occlusion or significant stenosis. No dissection. Left internal carotid artery: Unremarkable. Extracranial segment is patent with no occlusion or significant stenosis. No dissection. Left external carotid artery: Unremarkable. No occlusion. Left vertebral artery: Unremarkable. No occlusion or significant stenosis. No dissection. NECK: Bones/joints: Unremarkable. No acute fracture. Soft tissues: Unremarkable. Lung apices: Clear. CAROTID STENOSIS REFERENCE USING NASCET CRITERIA: % ICA stenosis = (1 - narrowest ICA diameter/diameter of distal cervical ICA) x 100. Mild - <50% stenosis. Moderate - 50-69% stenosis. Severe - 70-94% stenosis. Near occlusion - 95-99% stenosis. Occluded - 100% stenosis. IMPRESSION: No acute finding of the arteries of the neck. Electronically signed by: Nadeen Méndez MD 07/27/23 23:21 PM Discharge Plan Visit Data Chief Complaint: Seizure Stated Complaint: SEIZURE ED Provider: Renato Barajas Discharge Problem: Witnessed seizure-like activity, Syncope, Elevated troponin, Adverse effect of herbal medication Patient Disposition: Admitted As Inpatient Discharge Instructions Interventions: ED Discharge Assessment Last Done: 07/28/23 02:18 Discharge Problem: Syncope Qualifiers: Syncope type: unspecified Qualified Code(s): R55 - Syncope and collapse
[2023-07-27 19:41] LABS: Appearance Urine Clear (Clear); Bacteria Urine Automated None Seen (None Seen); Bilirubin Urine Negative (Negative); Blood Urine Negative (Negative); Color Urine Dark Yellow; Glucose Urine UA Negative (Negative); Ketones Urine Trace (Negative); Leukocyte Esterase Urine Trace (Negative); Nitrite Urine Negative (Negative); Protein Urine 1+ (Negative); RBC Urine Automated 0-2 /hpf (0-2); Specific Gravity Urine 1.028 (1.000-1.030); Urobilinogen Urine Negative (Negative); WBC Urine Automated 0-5 /hpf (0-5)
[2023-07-27 20:06] LABS: Amphetamines+Metham, Urine Neg (Neg); Barbiturates, Urine Neg (Neg); Benzodiazepine, Urine Neg (Neg); Cocaine, Urine Neg (Neg); MDMA (Ecstacy), Urine Pos (Neg); Marijuana, Urine Neg (Neg); Methadone, Urine Neg (Neg); Opiate, Urine Neg (Neg); Phencyclidine, Urine Neg (Neg)
[2023-07-27 20:27] LABS: Basophils # (auto) 0.03 K/uL (0.00-0.20); Basophils % (auto) 0.5 %; Eosinophils # (auto) 0.02 K/uL (0.00-0.50); Eosinophils % (auto) 0.3 %; Hematocrit (blood only) 40.9 % (37.0-47.0); Hemoglobin 13.6 g/dl (12.0-16.0); Immature Granulocytes # (auto) 0.01 K/uL (0.01-0.20); Immature Granulocytes % (auto) 0.2 %; Lymphocytes # (auto) 1.18 K/uL (1.20-3.40); Lymphocytes % (auto) 20.3 %; Mean Corpuscular Hemoglobin 30.7 pg (25.0-34.0); Mean Corpuscular Hgb Conc 33.3 g/dL (32.0-36.0); Mean Corpuscular Volume 92.3 fL (80.0-100.0); Mean Platelet Volume 11.1 fL (9.4-12.4); Monocytes # (auto) 0.39 K/uL (0.11-0.59); Monocytes % (auto) 6.7 %; Neutrophils # (auto) 4.17 K/uL (1.40-6.50); Platelet Count 176 K/uL (130-400); RDW Coefficient of Variation 14.2 % (11.5-14.5); RDW Standard Deviation 47.8 fL (36.4-46.3); Red Blood Count 4.43 M/uL (4.20-5.40)
[2023-07-27 20:35] LABS: Albumin Level 4.3 gm/dl (3.4-5.0); Bilirubin,Total 0.6 mg/dl (0.2-1.0); Calcium 8.2 mg/dl (8.6-10.3); Magnesium 1.7 mg/dl (1.7-2.4)
[2023-07-27 20:38] LABS: Pregnancy Test, Serum Negative (Negative)
[2023-07-27 20:41] LABS: Albumin Globulin Ratio 1.5 (0.9-2); BUN Creatinine Ratio 15.8 (10-20); Est GFR (African American) 82.9 ml/min; Est GFR (Non-African American) 71.6 ml/min; Globulin 2.8 gm/dl (2.5-4.0); Phosphorus 2.3 mg/dl (2.5-4.9); Total Protein 7.1 gm/dl (6.0-8.3)
[2023-07-27 20:47] LABS: Troponin I High Sensitivity 17.2 pg/ml (0-14)
[2023-07-27 20:51] LABS: Prothrombin Time 10.9 Seconds (9.0-12.0)
[2023-07-27 20:56] LABS: Thyroid Stimulating Hormone 2.988 uIu/ml (0.300-4.500)
[2023-07-27] MEDS: ACETAMINOPHEN 1,000 MG/100 ML VIAL IV STA (21:57)
[2023-07-27] MEDS: SODIUM CHLORIDE 0.9% 1,000 ML IV SCH (21:58)
[2023-07-27] MEDS: OPTIRAY 320 125ml IV ONE (22:33)
--- NOTE | 2023-07-27 23:15 | CT Scan Report ---
Exam(s): CT HEAD Without Contrast EXAM: CT Head Without Intravenous Contrast CLINICAL HISTORY: [place], syncope, seizure. TECHNIQUE: Axial computed tomography images of the head/brain without intravenous contrast. CTDI is 38 mGy and DLP is 546.36 mGy-cm. Automated exposure control was utilized for the study. A dose lowering technique was utilized adhering to the principles of ALARA. COMPARISON: CT head 08/11/2011 FINDINGS: Brain: Unremarkable. No significant white matter disease. No intracranial hemorrhage, mass-effect or midline shift. No abnormal extra axial fluid. No evidence of acute infarct. Ventricles: Unremarkable. No ventriculomegaly. Bones/joints: Unremarkable. No acute fracture. Soft tissues: Unremarkable. Sinuses: There is mild mucosal thickening of the ethmoid and maxillary sinuses. The remaining visualized paranasal sinuses are clear. Mastoid air cells: Unremarkable as visualized. No mastoid effusion. IMPRESSION: No acute intracranial finding. Electronically signed by: Nadeen Méndez MD 07/27/23 23:14 PM
--- NOTE | 2023-07-27 23:22 | CT Scan Report ---
Exam(s): CTA NECK With Contrast IV Amt: 118 ml opti 320 EXAM: CT Angiography Neck With Intravenous Contrast CLINICAL HISTORY: Headache and seizure. TECHNIQUE: Routine carotid CT angiography protocol was performed with intravenous contrast. NASCET criteria using the distal ICAs for comparison were used for evaluation of stenoses. MIPS images were created and reviewed. CTDI is 11 mGy and DLP is 415 mGy-cm. Automated exposure control was utilized for the study. A dose lowering technique was utilized adhering to the principles of ALARA. MIP reconstructed images were created and reviewed. CONTRAST: Patient received 118 ml opti 320 of IV contrast COMPARISON: None. FINDINGS: VASCULATURE: Right common carotid artery: Unremarkable. No occlusion or significant stenosis. No dissection. Right internal carotid artery: Unremarkable. Extracranial segment is patent with no occlusion or significant stenosis. No dissection. Right external carotid artery: Unremarkable. No occlusion. Right vertebral artery: Unremarkable. No occlusion or significant stenosis. No dissection. Left common carotid artery: Unremarkable. No occlusion or significant stenosis. No dissection. Left internal carotid artery: Unremarkable. Extracranial segment is patent with no occlusion or significant stenosis. No dissection. Left external carotid artery: Unremarkable. No occlusion. Left vertebral artery: Unremarkable. No occlusion or significant stenosis. No dissection. NECK: Bones/joints: Unremarkable. No acute fracture. Soft tissues: Unremarkable. Lung apices: Clear. CAROTID STENOSIS REFERENCE USING NASCET CRITERIA: % ICA stenosis = (1 - narrowest ICA diameter/diameter of distal cervical ICA) x 100. Mild - <50% stenosis. Moderate - 50-69% stenosis. Severe - 70-94% stenosis. Near occlusion - 95-99% stenosis. Occluded - 100% stenosis. IMPRESSION: No acute finding of the arteries of the neck. Electronically signed by: Nadeen Méndez MD 07/27/23 23:21 PM
--- NOTE | 2023-07-27 23:22 | CT Scan Report ---
Exam(s): CTA HEAD With Contrast IV Amt: 118 ml opti 320 EXAM: CT Angiography Head With Intravenous Contrast CLINICAL HISTORY: Headache and seizure TECHNIQUE: Axial computed tomographic angiography images of the head with intravenous contrast. 3D and MIPS images were created and reviewed. CTDI is 38.1 mGy and DLP is 546.36 mGy-cm. Automated exposure control was utilized for the study. A dose lowering technique was utilized adhering to the principles of ALARA. MIP reconstructed images were created and reviewed. CONTRAST: Patient received 118 ml opti 320 of IV contrast COMPARISON: No relevant prior studies available. FINDINGS: Right internal carotid artery: No acute findings. Intracranial segment is patent with no significant stenosis. No aneurysm. Right anterior cerebral artery: Unremarkable. No occlusion or significant stenosis. No aneurysm. Right middle cerebral artery: Unremarkable. No occlusion or significant stenosis. No aneurysm. Right posterior cerebral artery: Unremarkable. No occlusion or significant stenosis. No aneurysm. Right vertebral artery: Unremarkable as visualized. Left internal carotid artery: No acute findings. Intracranial segment is patent with no significant stenosis. No aneurysm. Left anterior cerebral artery: Unremarkable. No occlusion or significant stenosis. No aneurysm. Left middle cerebral artery: Unremarkable. No occlusion or significant stenosis. No aneurysm. Left posterior cerebral artery: Unremarkable. No occlusion or significant stenosis. No aneurysm. Left vertebral artery: Unremarkable as visualized. Basilar artery: Unremarkable. No occlusion or significant stenosis. No aneurysm. IMPRESSION: No acute finding of the arteries of the head. Electronically signed by: Nadeen Méndez MD 07/27/23 23:21 PM
[2023-07-27] MEDS: dexAMETHasone**PF** 10 MG/ML VIAL IV ONE (23:23)
--- NOTE | 2023-07-28 01:45 | History & Physical Report ---
Date of Service July 28, 2023 Assessment & Plan (1) Elevated troponin: (2) Syncope: (3) Witnessed seizure-like activity: (4) Palpitations: (5) Adverse effect of herbal medication: Plan Elevated troponin/palpitations- The patient will be admitted to telemetry for serial cardiac enzymes, serial EKG's, cardiac rhythm monitoring and a 2-D echocardiogram with Dopplers. Increased heart rate occurred after the syncopal episode, and lasted for several minutes. She denies having any palpitation symptoms prior to her syncopal episode. Symptoms may be secondary to the effects of using kratom, which she reports using more of recently Troponin initially elevated at 17.2, with follow-up 28.6 From the ED the patient received the following: Normal saline 1 L boluses x 2, Tylenol 1 g IV, dexamethasone 10 mg IV NSS + KCl 20 mill equivalents at 100 mL/h x 1 L Consult cardiology Syncopal episode- Differential including but not limited to: Adverse effect of kratom, seizure disorder, TIA, CVA, encephalopathy, orthostatic hypotension secondary to dehydration Admit to monitored bed as noted above CT head without contrast negative CTA head and neck negative MRI of brain without contrast, seizure protocol ordered EEG ordered Consult neurology Urine drug screen- Positive for MDMA, with confirmation test pending Tobacco use disorder- NicoDerm patch History of Present Illness Chief Complaint: The patient presents to the emergency department with complaint of a fall to the ground companied by seizure-like activity around 7:00 PM this evening, witnessed by her coworkers, who then called EMS Primary Care Provider: William Valdez The patient is a 38-year-old female with a past medical history including present tobacco use, GERD, endometriosis, history of , history of miscarriage, gallbladder sludge, asthma, and anxiety who presents to the emergency department after a syncopal episode accompanied by seizure-like activity after falling to the floor at work. She did not have any loss of bowel or bladder control, but was confused for a few hours afterwards. She also reports some chest discomfort with palpitations associated with rapid heartbeat that lasted for several minutes after the episode. She had no previous episodes of this type of activity. She reports that she has been taking kratom, an ove [id number] herbal medication for pain control, and has been taking more recently than usual. Allergies Allergy/AdvReac Type Severity Reaction Status Date / Time amoxicillin AdvReac Mild NAUSEA AND Verified 07/28/23 01:59 VOMITING clavulanic acid AdvReac Mild NAUSEA AND Verified 07/28/23 01:59 VOMITING guaifenesin AdvReac Mild N/V Verified 07/28/23 01:59 phenylephrine AdvReac Mild N/V Verified 07/28/23 01:59 phenylpropanolamine AdvReac Mild N/V Verified 07/28/23 01:59 Home Medications Medication Instructions Recorded Confirmed Type Kratom 1 tab PO DIRECTED PRN Pain 07/28/23 07/28/23 History ibuprofen 200 mg tablet 400 mg PO Q6H PRN Pain 07/28/23 07/28/23 History Past Med/Surg History Social History Smoking Status: Current every day smoker Tobacco Type: Cigarettes Hx Alcohol Use: No Hx Substance Use: Yes Substance Use Type Other:: [place] Preferred Language: Gabonese Communication Ability: Effective Operations Manager/Coordinator Required: No Beliefs That Will Affect Care: None Current Living Situation: Parent Other Information That Helps Us Care for You: No Feels Safe at Home: Yes Safety Concerns: Feels Safe At This Time Review of Systems Review of Systems: The patient denies shortness of breath, dyspnea on exertion, cough, lower extremity swelling, sore throat, fevers, chills, sweats, nausea, vomiting, diarrhea , constipation, abdominal pain, pelvic pain, blood in urine or stool, dysuria, urinary frequency or urgency, lightheadedness, dizziness, headache, rash, abnormal bruising or bleeding, imbalance, focal weakness, numbness or tingling in arms or legs, generalized arthralgias or myalgias, back or neck pain, or night sweats. The review of systems is otherwise negative other than for that already noted above, and at least 10 systems have been reviewed. Physical Exam Physical Exam: The patient is awake, alert and oriented 3, well developed and well nourished, normocephalic and atraumatic, lying in bed and in no acute distress. HEENT--PERRL, EOMI, mucous membranes and oropharynx mildly dry. Neck--supple. No JVD. No bruits. Thyroid normal, trachea midline, no adenopathy. Heart--normal S1 and S2. No murmurs, rubs or gallops. Lungs--clear bilaterally, no respiratory distress, no accessory muscle use. Abdomen--normal bowel sounds and soft. Nontender. Nondistended, no hernias or masses, no organomegaly. Extremities--no cyanosis or clubbing. No edema. Dermatologic--normal skin turgor, normal color, no abnormal lymph nodes, no rash. Neurologic--cranial nerves II through XII grossly intact. Rheumatologic--normal range of motion. Psychiatric--normal affect. Results & Data Results & Data Vital Signs (Past 12 Hours) Vital Signs Temp Pulse Resp BP Pulse Ox O2 Del Method 07/28/23 00:06 67 12 119/75 97 Room Air 07/27/23 23:00 71 07/27/23 23:00 69 14 126/81 98 Room Air 07/27/23 22:34 78 22 121/59 L 98 Room Air 07/27/23 22:00 78 15 98 Room Air 07/27/23 21:00 86 19 98 Room Air 07/27/23 20:32 87 12 123/83 98 Room Air 07/27/23 20:32 99 Room Air 07/27/23 20:00 98 H 12 99 Room Air 07/27/23 19:00 106 H 10 L 99 Room Air 07/27/23 18:55 109 H 07/27/23 18:55 37.1 C 108 H 22 146/90 H 97 Room Air Laboratory Results Laboratory Results WBC 5.80 K/ul (4.8-10.8) 07/27/23 19:59 RBC 4.43 M/uL (4.20-5.40) 07/27/23 19:59 Hgb 13.6 g/dl (12.0-16.0) 07/27/23 19:59 Hct 40.9 % (37.0-47.0) 07/27/23 19:59 MCV 92.3 fL (80.0-100.0) 07/27/23 19:59 MCH 30.7 pg (25.0-34.0) 07/27/23 19:59 MCHC 33.3 g/dL (32.0-36.0) 07/27/23 19:59 RDW Std Deviation 47.8 fL (36.4-46.3) H 07/27/23 19:59 RDW Coeff of Selena 14.2 % (11.5-14.5) 07/27/23 19:59 Plt Count 176 K/uL (130-400) 07/27/23 19:59 MPV 11.1 fL (9.4-12.4) 07/27/23 19:59 Immature Gran % (Auto) 0.2 % 07/27/23 19:59 Neut % (Auto) 72.0 % 07/27/23 19:59 Lymph % (Auto) 20.3 % 07/27/23 19:59 Glasscock % (Auto) 6.7 % 07/27/23 19:59 Eos % (Auto) 0.3 % 07/27/23 19:59 Baso % (Auto) 0.5 % 07/27/23 19:59 Neut # (Auto) 4.17 K/uL (1.40-6.50) 07/27/23 19:59 Lymph # (Auto) 1.18 K/uL (1.20-3.40) L 07/27/23 19:59 Glasscock # (Auto) 0.39 K/uL (0.11-0.59) 07/27/23 19:59 Eos # (Auto) 0.02 K/uL (0.00-0.50) 07/27/23 19:59 Baso # (Auto) 0.03 K/uL (0.00-0.20) 07/27/23 19:59 Immature Gran # (Auto) 0.01 K/uL (0.01-0.20) 07/27/23 19:59 PT 10.9 Seconds (9.0-12.0) 07/27/23 19:59 INR 1.0 (0.9-1.1) 07/27/23 19:59 Sodium 138 mmol/L (136-145) 07/27/23 19:59 Potassium 4.0 mmol/L (3.5-5.1) 07/27/23 19:59 Chloride 108 mmol/L (98-107) H 07/27/23 19:59 Carbon Dioxide 23 mmol/L (21-32) 07/27/23 19:59 Anion Gap 7 (3-11) 07/27/23 19:59 BUN 16 mg/dl (6-23) 07/27/23 19:59 Creatinine 1.01 mg/dl (0.6-1.2) 07/27/23 19:59 Est Cr Clr Drug Dosing 70.0 ml/min 07/27/23 19:59 Est GFR ( Amer) 82.9 ml/min 07/27/23 19:59 Est GFR (Non-Af Amer) 71.6 ml/min 07/27/23 19:59 BUN/Creatinine Ratio 15.8 (10-20) 07/27/23 19:59 Glucose 107 mg/dl (70-99(Fasting)) H 07/27/23 19:59 Calcium 8.2 mg/dl (8.6-10.3) L 07/27/23 19:59 Phosphorus 2.3 mg/dl (2.5-4.9) L 07/27/23 19:59 Magnesium 1.7 mg/dl (1.7-2.4) 07/27/23 19:59 Total Bilirubin 0.6 mg/dl (0.2-1.0) 07/27/23 19:59 AST 20 U/L (13-39) 07/27/23 19:59 ALT 23 U/L (7-52) 07/27/23 19:59 Alkaline Phosphatase 45 U/L (34-104) 07/27/23 19:59 Total Creatine Kinase 159 U/L (26-192) 07/27/23 19:59 Troponin I High Sens 28.6 pg/ml (0-14) H D 07/27/23 22:54 Total Protein 7.1 gm/dl (6.0-8.3) 07/27/23 19:59 Albumin 4.3 gm/dl (3.4-5.0) 07/27/23 19:59 Globulin 2.8 gm/dl (2.5-4.0) 07/27/23 19:59 Albumin/Globulin Ratio 1.5 (0.9-2) 07/27/23 19:59 TSH 2.988 uIu/ml (0.300-4.500) 07/27/23 19:59 Prolactin 38.11 ng/ml 07/27/23 19:59 HCG, Qual Negative (Negative) 07/27/23 19:59 Urine Color Dark Yellow 07/27/23 19:25 Urine Appearance Clear (Clear) 07/27/23 19:25 Urine pH 5.0 (4.5-7.5) 07/27/23 19:25 Ur Specific S[place]y 1.028 (1.000-1.030) 07/27/23 19:25 Urine Protein 1+ (Negative) H 07/27/23 19:25 Urine Glucose (UA) Negative (Negative) 07/27/23 19:25 Urine Ketones Trace (Negative) H 07/27/23 19:25 Urine Blood Negative (Negative) 07/27/23 19:25 Urine Nitrite Negative (Negative) 07/27/23 19:25 Urine Bilirubin Negative (Negative) 07/27/23 19:25 Urine Urobilinogen Negative (Negative) 07/27/23 19:25 Ur Leukocyte Esterase Trace (Negative) H 07/27/23 19:25 Urine WBC (Auto) 0-5 /hpf (0-5) 07/27/23 19:25 Urine RBC (Auto) 0-2 /hpf (0-2) 07/27/23 19:25 U Hyaline Cast (Auto) 3-5 /lpf (0-2) H 07/27/23 19:25 U Epithel Cells (Auto) 3-5 /hpf (0-2) H 07/27/23 19:25 Urine Bacteria (Auto) None Seen (None Seen) 07/27/23 19:25 Urine Opiates Screen Neg (Neg) 07/27/23 19:25 Ur Methadone, Qual Neg (Neg) 07/27/23 19:25 Urine Barbiturates Neg (Neg) 07/27/23 19:25 Ur Phencyclidine (PCP) Neg (Neg) 07/27/23 19:25 U Amphetamin/Meth Scrn Neg (Neg) 07/27/23 19:25 MDMA (Ecstasy) Screen Pos (Neg) H 07/27/23 19:25 U Benzodiazepines Scrn Neg (Neg) 07/27/23 19:25 Ur Cocaine Metabolite Neg (Neg) 07/27/23 19:25 U Marijuana (THC) Screen Neg (Neg) 07/27/23 19:25 Ethyl Alcohol mg/dL < 10.0 mg/dl (<10.0) 07/27/23 19:[address] 07/27/23 22:12 Exam(s): CT HEAD Without Contrast EXAM: CT Head Without Intravenous Contrast CLINICAL HISTORY: [place], syncope, seizure. TECHNIQUE: Axial computed tomography images of the head/brain without intravenous contrast. CTDI is 38 mGy and DLP is 546.36 mGy-cm. Automated exposure control was utilized for the study. A dose lowering technique was utilized adhering to the principles of ALARA. COMPARISON: CT head 08/11/2011 FINDINGS: Brain: Unremarkable. No significant white matter disease. No intracranial hemorrhage, mass-effect or midline shift. No abnormal extra axial fluid. No evidence of acute infarct. Ventricles: Unremarkable. No ventriculomegaly. Bones/joints: Unremarkable. No acute fracture. Soft tissues: Unremarkable. Sinuses: There is mild mucosal thickening of the ethmoid and maxillary sinuses. The remaining visualized paranasal sinuses are clear. Mastoid air cells: Unremarkable as visualized. No mastoid effusion. IMPRESSION: No acute intracranial finding. Electronically signed by: Nadeen Méndez MD 07/27/23 23:14 PM Head CTA 07/27/23 22:12 Exam(s): CTA HEAD With Contrast IV Amt: 118 ml opti 320 EXAM: CT Angiography Head With Intravenous Contrast CLINICAL HISTORY: Headache and seizure TECHNIQUE: Axial computed tomographic angiography images of the head with intravenous contrast. 3D and MIPS images were created and reviewed. CTDI is 38.1 mGy and DLP is 546.36 mGy-cm. Automated exposure control was utilized for the study. A dose lowering technique was utilized adhering to the principles of ALARA. MIP reconstructed images were created and reviewed. CONTRAST: Patient received 118 ml opti 320 of IV contrast COMPARISON: No relevant prior studies available. FINDINGS: Right internal carotid artery: No acute findings. Intracranial segment is patent with no significant stenosis. No aneurysm. Right anterior cerebral artery: Unremarkable. No occlusion or significant stenosis. No aneurysm. Right middle cerebral artery: Unremarkable. No occlusion or significant stenosis. No aneurysm. Right posterior cerebral artery: Unremarkable. No occlusion or significant stenosis. No aneurysm. Right vertebral artery: Unremarkable as visualized. Left internal carotid artery: No acute findings. Intracranial segment is patent with no significant stenosis. No aneurysm. Left anterior cerebral artery: Unremarkable. No occlusion or significant stenosis. No aneurysm. Left middle cerebral artery: Unremarkable. No occlusion or significant stenosis. No aneurysm. Left posterior cerebral artery: Unremarkable. No occlusion or significant stenosis. No aneurysm. Left vertebral artery: Unremarkable as visualized. Basilar artery: Unremarkable. No occlusion or significant stenosis. No aneurysm. IMPRESSION: No acute finding of the arteries of the head. Electronically signed by: Nadeen Méndez MD 07/27/23 23:21 PM Neck CTA 07/27/23 22:12 Exam(s): CTA NECK With Contrast IV Amt: 118 ml opti 320 EXAM: CT Angiography Neck With Intravenous Contrast CLINICAL HISTORY: Headache and seizure. TECHNIQUE: Routine carotid CT angiography protocol was performed with intravenous contrast. NASCET criteria using the distal ICAs for comparison were used for evaluation of stenoses. MIPS images were created and reviewed. CTDI is 11 mGy and DLP is 415 mGy-cm. Automated exposure control was utilized for the study. A dose lowering technique was utilized adhering to the principles of ALARA. MIP reconstructed images were created and reviewed. CONTRAST: Patient received 118 ml opti 320 of IV contrast COMPARISON: None. FINDINGS: VASCULATURE: Right common carotid artery: Unremarkable. No occlusion or significant stenosis. No dissection. Right internal carotid artery: Unremarkable. Extracranial segment is patent with no occlusion or significant stenosis. No dissection. Right external carotid artery: Unremarkable. No occlusion. Right vertebral artery: Unremarkable. No occlusion or significant stenosis. No dissection. Left common carotid artery: Unremarkable. No occlusion or significant stenosis. No dissection. Left internal carotid artery: Unremarkable. Extracranial segment is patent with no occlusion or significant stenosis. No dissection. Left external carotid artery: Unremarkable. No occlusion. Left vertebral artery: Unremarkable. No occlusion or significant stenosis. No dissection. NECK: Bones/joints: Unremarkable. No acute fracture. Soft tissues: Unremarkable. Lung apices: Clear. CAROTID STENOSIS REFERENCE USING NASCET CRITERIA: % ICA stenosis = (1 - narrowest ICA diameter/diameter of distal cervical ICA) x 100. Mild - <50% stenosis. Moderate - 50-69% stenosis. Severe - 70-94% stenosis. Near occlusion - 95-99% stenosis. Occluded - 100% stenosis. IMPRESSION: No acute finding of the arteries of the neck. Electronically signed by: Nadeen Méndez MD 07/27/23 23:21 PM Code Status & VTE Plan Code Status Full code VTE Prophylaxis Plan VTE Prophylaxis will be ordered: Yes PG Care Time/CCT Total # of Minutes Spent Total Time Spent with Patient: Total time spent is greater than 50% in coordination of care (as documented) at patient's floor/unit and/or counseling patient: Coding Level of Care Code 43054 INT INP/OBS CARE 3/75MIN Diagnoses Elevated troponin R79.89 Syncope R55 Witnessed seizure-like activity R56.9 Palpitations R00.2 Adverse effect of herbal medication T50.995A
[2023-07-28] MEDS ORDERED: ONDANSETRON INJ 2 MG/ML 2 ML VIAL IV PRN (02:18)
[2023-07-28] MEDS ORDERED: ACETAMINOPHEN 325 MG TAB PO PRN (02:18)
[2023-07-28] MEDS: NSS + 20MEQ KCL 20 MEQ/1,000 ML BAG IV STA (02:21)
[2023-07-28] MEDS: NICOTINE 21 MG/24 HR TDSY TD STA (02:23)
--- NOTE | 2023-07-28 08:13 | Electroencephalogram ---
EEG Procedure Note Date of Service July 28, 2023 Start / End Times Start Time: 6:17 AM End Time: 6:[address] Valenzuela History New onset seizure in the setting of kratom use Home Medication List Medication Instructions Recorded Confirmed Type Kratom 1 tab PO DIRECTED PRN Pain 07/28/23 07/28/23 History ibuprofen 200 mg tablet 400 mg PO Q6H PRN Pain 07/28/23 07/28/23 History Inpatient Medication List Potassium Chloride/Sodium Chloride (Normal Saline W/20 Meq Kcl) 20 meq in 1,000 mls @ 100 mls/hr IV .Q10H STA; Protocol Stop: 07/28/23 11:53 Last Admin: 07/28/23 02:21 Dose: 100 mls/hr Documented By: LATOSHA Discontinued Medications Dexamethasone Sodium Phosphate (DexamethasonePf 10 Mg/Ml Vial) 10 mg IV NOW ONE Stop: 07/27/23 22:13 Last Admin: 07/27/23 23:23 Dose: 10 mg Documented By: LATOSHA Sodium Chloride (Nss) 1,000 mls @ 999 mls/hr IV .Q1H1M SHELBI Stop: 07/27/23 21:15 Last Infusion: 07/27/23 23:24 Dose: Infused Documented By: Admin: 07/27/23 21:59 Dose: 999 mls/hr Documented By: Infusion: 07/27/23 21:59 Dose: Infused Documented By: Admin: 07/27/23 21:58 Dose: 999 mls/hr Documented By: LATOSHA Acetaminophen (Ofirmev) 1,000 mg in 100 mls @ 400 mls/hr IV NOW STA Stop: 07/27/23 22:04 Last Infusion: 07/27/23 22:31 Dose: Infused Documented By: Admin: 07/27/23 21:57 Dose: 400 mls/hr Documented By: LATOSHA Ioversol (Optiray 320 125ml) 118 ml IV ONCE ONE Stop: 07/27/23 22:33 Last Admin: 07/27/23 22:33 Dose: 118 ml Documented By: MALACHI Nicotine (Nicotine 21 Mg/24 Hr Tdsy) 1 patch TD NOW STA Stop: 07/28/23 00:33 Last Admin: 07/28/23 02:23 Dose: 1 patch Documented By: LATOSHA Description This is a 21 electrode EEG with a single channel dedicated to limited EKG. The electrodes were placed in accordance with the International 10-20 system. There is a posterior dominant rhythm of 12 Hz which is symmetrically distributed and attenuates with eye opening. There is a normal anterior to posterior organization. There is no photic driving response. Hyperventilation induces brief frontal slowing. There is intermittent frontally predominant beta activity and occasional movement artifact. There is intermittent generalized theta slowing and associated vertex waves. There are no epileptiform abnormalities. Interpretation Normal-appearing awake/sleepy EEG. [facility] EEG Procedure Codes Indication for Procedure (1) Witnessed seizure-like activity: Neurology Neurology: 85028 EEG include record awake & sleepy
--- NOTE | 2023-07-28 09:27 | Neurology Consultation ---
Date of Consultation July 28, 2023 Assessment & Plan (1) Witnessed seizure-like activity: Plan 38-year-old female with new onset seizure occurring in the context of kratom use, chronic moderate to heavy caffeine and nicotine use, and chronic sleep deprivation. Patient is neurologically intact, no deficits on examination, has had a normal CT of the head including CTA of the head and neck. Her EEG completed this morning was negative for epileptiform abnormalities. I would not recommend starting an antiseizure medication at this time. The patient was given additional counseling regarding the likely diagnosis of provoked seizure. She should abstain from kratom going forward. Additional lifestyle factors such as limiting excessive caffeine and nicotine use as well as attempting to get more consistent sleep were also discussed. She may also benefit from a referral to addiction medicine. If she were to have another seizure episode going forward, would consider obtaining ambulatory EEG monitoring and treatment with an antiseizure medication. Follow-up with results of brain MRI. If there are any significant abnormalities I will give additional input. Otherwise, however, this patient would not require further neurological follow-up or testing. Please contact me with any questions. History of Present Illness Reason for Consultation: Seizure like activity, kratom use Requesting Physician: Nicolas Attending Physician: Winston Vega MD History of Present Illness The patient is a 38-year-old female who presented to the emergency department last night with seizure-like activity that occurred at work. 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 She apparently fell, struck the left frontal side of her head, and exhibited generalized shaking of the limbs with loss of consciousness lasting several minutes, she bit the left half and tip of her tongue. No incontinence, no other injuries sustained. She was a bit confused afterwards, recalls emergency medical personnel evaluating her. She initially thought they had come to care for somebody else. No prior history of loss of consciousness or seizure-like episodes. History notable for remote heroin and methamphetamine use. She has been taking kratom capsules 3-4 times per day for several years which he indicates has been helpful to keep her substance abuse at bay. She smokes 1 pack of cigarettes per day, drinks caffeine throughout the day, and reports an element of chronic sleep deprivation, only 3 to 4 hours per night of sleep which has been her pattern for quite some time. She otherwise denies any other significant illnesses recently and had been feeling well just prior to the episode above. She does endorse a history of occasional migraine, perhaps only 1 episode every few months, she has had some left facial numbness with her migraines in the past, she does have a prescription for Imitrex which she uses on occasion. No other major active health issues identified. A CT of the head including CTA of the head and neck were negative for acute abnormality. I did independently review these images, no evidence of hemorrhage, stroke, hydrocephalus, or obvious structural abnormality. No abnormalities on angiography identified. She had an EEG completed this morning that was negative for epileptiform abnormalities. An electrocardiogram had revealed sinus tachycardia. She had a minor elevation in troponin yesterday that has subsequently normalized today. Her prolactin level was slightly elevated. A urine toxicology screen was positive for MDMA. In speaking with the patient and her mother who is also present at bedside this morning, again, no prior history of seizures, no known family history of epilepsy in any first-degree relative. Patient's father reportedly has factor V Leiden gene mutation. Patient has never had a blood clot. Allergies Allergy/AdvReac Type Severity Reaction Status Date / Time amoxicillin AdvReac Mild NAUSEA AND Verified 07/28/23 01:59 VOMITING clavulanic acid AdvReac Mild NAUSEA AND Verified 07/28/23 01:59 VOMITING guaifenesin AdvReac Mild N/V Verified 07/28/23 01:59 phenylephrine AdvReac Mild N/V Verified 07/28/23 01:59 phenylpropanolamine AdvReac Mild N/V Verified 07/28/23 01:59 Home Medications Medication Instructions Recorded Confirmed Type Kratom 1 tab PO DIRECTED PRN Pain 07/28/23 07/28/23 History ibuprofen 200 mg tablet 400 mg PO Q6H PRN Pain 07/28/23 07/28/23 History Patient History Medical History Migraine headache Opioid abuse, in remission Social History Smoking Status: Current every day smoker Tobacco Type: Cigarettes Cigarettes Per Day: 20; Second Hand Exposure: No; Do You Dip or Chew Tobacco: No; Tobacco Cessation Education Requested by Patient: No Hx Alcohol Use: No Hx Substance Use: Yes Last Used Substance Other:: Shellie Substance Use Type Other:: Casper Preferred Language: Thai Communication Ability: Effective Worship Director Required: No Beliefs That Will Affect Care: None Current Living Situation: Parent Other Information That Helps Us Care for You: No Feels Safe at Home: Yes Safety Concerns: Feels Safe At This Time Assistive Devices: None Review of Systems Constitutional: no fever and no chills Eyes: no blind spots and no diplopia Ear, Nose, Mouth, Throat: no hearing loss Respiratory: no cough and no dyspnea Cardiovascular: no chest pain Gastrointestinal: no nausea and no vomiting Genitourinary: no dysuria Musculoskeletal: no back pain, no neck pain and no myalgia Integumentary: no rash and no lesions Neurologic: as per Subjective / HPI; no gait abnormality, no localized weakness, no loss of sensation, no tremor(s), no abnormal movements, no he adache(s) and no abnormal speech Psychiatric: no depression and no anxiety Exam (Neuro) Constitutional: well developed and + thin; no acute distress Eyes: normal visual duffy by confrontation, PERRL and EOM intact bilaterally; no nystagmus Neurologic: Oriented to:: Person, Place and Time Memory: Short Term Intact and Remote Intact Attention: Span Intact and Concentration Intact Speech Fluency: negative Dysarthria or Dysfluency Speech Aphasia: negative Aphasia Fund of Knowledge: Current Events, Past History and Vocabulary Cranial Nerves: Normal II, III, IV, , V, VII, VIII, IX, X, XI and XII Motor Strength: Normal Lower Extremities and Normal Upper Extremities Motor Tone: Normal Lower Extremities and Normal Upper Extremities Muscle Bulk/Involuntary Movements: No Involuntary Movements; negative Muscle Atrophy Sensation: Light Touch Intact, Pain/Temperature Intact and Proprioception Intact Coordination: Normal; negative Limited Balance, Dysdiadochokinesia, Finger-Nose Abnormal or Heel-Schofield Abnormal Deep Tendon Reflexes: Rt Triceps: 2+, Lt Triceps: 2+, Rt Biceps: 2+, Lt Biceps: 2+, Rt Brachioradialis: 2+, Lt Brachioradialis: 2+, Rt Patellar: 2+, Lt Patellar: 2+, Rt Ankle: 2+ and Lt Ankle: 2+ Special Tests: negative Babinski Present Gait: Normal Station and Gait Results & Data Vital Signs (Past 12 Hours) Vital Signs Temp Pulse Pulse Resp BP BP Pulse Ox 07/28/23 08:07 64 07/28/23 07:43 36.9 C 58 L 20 126/72 98 07/28/23 07:15 19 115/76 99 07/28/23 06:01 68 19 115/76 98 07/28/23 04:00 66 17 107/69 98 07/28/23 02:30 63 19 97 07/28/23 02:00 64 13 116/77 97 07/28/23 01:00 58 L 15 130/72 97 07/28/23 00:06 67 12 119/75 97 07/27/23 23:00 71 07/27/23 23:00 69 14 126/81 98 07/27/23 22:34 78 22 121/59 L 98 07/27/23 22:00 78 15 98 O2 Del Method 07/28/23 08:07 07/28/23 07:43 Room Air 07/28/23 07:15 Room Air 07/28/23 06:01 Room Air 07/28/23 04:00 Room Air 07/28/23 02:30 Room Air 07/28/23 02:00 Room Air 07/28/23 01:00 Room Air 07/28/23 00:06 Room Air 07/27/23 23:00 07/27/23 23:00 Room Air 07/27/23 22:34 Room Air 07/27/23 22:00 Room Air Laboratory Results WBC 5.80, hemoglobin 13.6, hematocrit 40.9, platelet count 176, sodium 138, potassium 4.0, BUN 16, creatinine 1.01, glucose 107, calcium 8.2, magnesium 1.7, AST 20, ALT 23, troponin 28.6, troponin this morning 12.9, TSH 2.988, prolactin 38.11, hCG negative, urine tox screen was positive for MDMA. Diagnostic Findings CT of the head including CTA of the head and neck are as described in the HPI, I independently reviewed these images. An EEG was negative for epileptiform abnormalities. An electrocardiogram reveals sinus tachycardia, 108 bpm. Coding Level of Care Code 66694 INT INP/OBS CARE 3/75MIN Diagnoses Witnessed seizure-like activity R56.9 Time Spent (min) 80 Comment Total time includes patient contact, chart review, counseling, note preparation
--- NOTE | 2023-07-28 09:41 | Cardiology Consultation ---
Date of Consultation July 28, 2023 Assessment & Plan (1) Elevated troponin: (2) Witnessed seizure-like activity: (3) Adverse effect of herbal medication: Plan Ms. 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 Afterwards, she felt somewhat confused or foggy headed and this lasted for several hours. She bit her tongue during the seizure but did not lose bowel or bladder continence. She denies any prior history of a seizure disorder. Patient did not recall this seizure, but recalls being on the floor staring up to her boss and other bystanders as she was coming out of the seizure. The patient thought that her boss and coworkers were "talking about someone else" when she still on the floor. Additionally, she noted that her heart rate was elevated for several minutes after collapsing and having a seizure. She denies any palpitations leading up to this event but afterwards could her heart beating faster than usual. She denies any chest pain or anginal symptoms, she does not recall feeling short of breath, and she has not had any recurrent elevated heart rate. She denies any history of syncope or passing out. Patient admits that she doesn't eat properly, drink way too much caffeine, and smokes a pack of cigarettes every day. Prior history of heroin use. She is also taking Kratom (Mitragyna speciosa) -- which is an herbal supplement with opioid and stimulant like properties and it is an agonist of the mu-opioid receptor sites. Patient takes this for pain but it is apparently commonly used by addicts for self treatment of withdrawal from opiates. Patient has been gra dually increasing her Kratom dose. As mentioned in the ER notes "RUTH lists Kratom as a Drug and Chemical of Concern. Per the FDA, Kratom is not lawfully marketed as a drug product, dietary supplement, or a food additive." Patient offers no complaints today, other than her tongue is sore from biting it. Her workup thus far shows a hemoglobin of 13.6 mg/dL, hematocrit 40.9%, and a normal platelet count. Serum sodium, serum potassium, and magnesium are within normal limits. Serum calcium is low at 8.2 mg/dL, serum phosphorus is low at 2.3 mg/dL. Her high sensitivity troponin I levels are 17.2 pg/mL, 28.6 pg/mL, followed by 12.9 pg/mL. CTA of the head and neck showed no vascular lesions, narrowings, stenosis or aneurysms. CT of the head is unremarkable. EEG performed by Neurology did not show any epileptogenic waveforms. EKG 07/27/2023 showed sinus tachycardia at 108 bpm with possible left atrial enlargement, borderline EKG. radiation monitor currently shows normal sinus rhythm in the 60s and 70s. Urine drug screen positive for MDMA. Echocardiogram 07/28/23 is not yet read. I suspect that her collapse was associated with the tonic-clonic seizure she had and was not truly a syncopal episode. Her high sensitivity Troponin I is most likely "demand ischemia" related to the strain of a tonic clonic seizure and probably transient hypoxemia during the seizure. Provided her Echocardiogram shows no regional wall motion abnormalities and normal LV systolic -- there will be no need for further ischemic or cardiac evaluation at this time. Patient was encouraged to do the followin. Kratom is a dangerous herbal supplement with significant potential side effects including seizures, cardiovascular events, or even . Encouraged her to wean off of this medication. 2. She was encouraged to quit smoking. 3. Reduce caffeine intake. 4. Try to get more sleep. 5. Increase aerobic activities as tolerated. Thank you for asking us to see this patient in consultation. Patient and her mother verbalized understanding of our discussions. History of Present Illness Reason for Consultation: -- Elevated hs Troponin I. Requesting Physician: Winston Vega MD Attending Physician: Jessee Alexis MD History of Present Illness Ms. 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 Afterwards, she felt somewhat confused or foggy headed and this lasted for several hours. She bit her tongue during the seizure but did not lose bowel or bladder continence. She denies any prior history of a seizure disorder. Patient did not recall this seizure, but recalls being on the floor staring up to her boss and other bystanders as she was coming out of the seizure. The patient thought that her boss and coworkers were "talking about someone else" when she still on the floor. Additionally, she noted that her heart rate was elevated for several minutes after collapsing and having a seizure. She denies any palpitations leading up to this event but afterwards could her heart beating faster than usual. She denies chest pain, heaviness, tightness, or pressure. She denies any neck, jaw, back, or arm pain. She denies any shortness of breath or any unusual dyspnea on exertion. She denies any history of syncope or passing out. Patient admits that she doesn't eat properly, drink way too much caffeine, and smokes a pack of cigarettes every day. Prior history of heroin use. She is also taking Kratom (Mitragyna speciosa) -- which is an herbal supplement with opioid and stimulant like properties and it is an agonist of the mu-opioid receptor sites. Patient takes this for pain but it is apparently commonly used by addicts for self treatment of withdrawal from opiates. Patient has been gradually increasing her Kratom dose. As mentioned in the ER notes "RUTH lists Kratom as a Drug and Chemical of Concern. Per the FDA, Kratom is not lawfully marketed as a drug product, dietary supplement, or a food additive." Patient offers no complaints today, other than her tongue is sore from biting it. Allergies Allergy/AdvReac Type Severity Reaction Status Date / Time amoxicillin AdvReac Mild NAUSEA AND Verified 07/28/23 01:59 VOMITING clavulanic acid AdvReac Mild NAUSEA AND Verified 07/28/23 01:59 VOMITING guaifenesin AdvReac Mild N/V Verified 07/28/23 01:59 phenylephrine AdvReac Mild N/V Verified 07/28/23 01:59 phenylpropanolamine AdvReac Mild N/V Verified 07/28/23 01:59 Home Medications Medication Instructions Recorded Confirmed Type Kratom 1 tab PO DIRECTED PRN Pain 07/28/23 07/28/23 History ibuprofen 200 mg tablet 400 mg PO Q6H PRN Pain 07/28/23 07/28/23 History Patient History Medical History Migraine headache Opioid abuse, in remission Social History Smoking Status: Current every day smoker Tobacco Type: Cigarettes Cigarettes Per Day: 20; Second Hand Exposure: No; Do You Dip or Chew Tobacco: No; Tobacco Cessation Education Requested by Patient: No Hx Alcohol Use: No Hx Substance Use: Yes Last Used Substance Other:: Krakom Substance Use Type Other:: Kratom Preferred Language: Upper Sorbian Communication Ability: Effective Base Remover Required: No Beliefs That Will Affect Care: None Current Living Situation: Parent Other Information That Helps Us Care for You: No Feels Safe at Home: Yes Safety Concerns: Feels Safe At This Time Assistive Devices: None Review of Systems Review of Systems: -- She uses Kratom daily to help prevent from using other substances. -- As per HPI. Physical Exam Physical Exam: HR 74 and regular. BP 126/72. GENERAL: Patient in no acute distress. HEENT: Head is atraumatic, normocephalic. EOM's intact. Facies symmetric. No perioral cyanosis. Bite bolden on her lateral tongue. NECK: No JVD. JVP is not elevated. Carotid upstrokes are + 2 bilaterally. CHEST/LUNGS: Mildly diminished breath sounds but otherwise clear. No wheezes, rales, or crackles. CVS: S1 and S2 are regular with a grade 1/6 systolic murmur at the LLSB and Erb's point. No diastolic murmurs. No gallops or rubs. PMI is nondisplaced. No lifts, heaves, or thrills. No abdominal aortic or renal bruits. ABDOMINAL EXAM: Bowel sounds are present. EXTREMITIES: No clubbing or cyanosis. No edema. Intact radial pulses bilaterally. NEUROLOGIC EXAM: Patient is awake, alert, and oriented. Pleasant and cooperative. Answers questions appropriately. Speech is clear. DERMATOLOGIC EXAM: No splinter hemorrhages or Janeway lesions. FINANCIAL REPORTING ACCOUNTANT: -- NSR in the 60's and 70's. -- No arrhythmias. Results & Data Vital Signs (Past 12 Hours) Vital Signs Temp Pulse Pulse Resp BP BP Pulse Ox 07/28/23 09:31 78 20 98 07/28/23 08:07 64 07/28/23 07:43 36.9 C 58 L 20 126/72 98 07/28/23 07:15 19 115/76 99 07/28/23 06:01 68 19 115/76 98 07/28/23 04:00 66 17 107/69 98 07/28/23 02:30 63 19 97 07/28/23 02:00 64 13 116/77 97 07/28/23 01:00 58 L 15 130/72 97 07/28/23 00:06 67 12 119/75 97 07/27/23 23:00 71 07/27/23 23:00 69 14 126/81 98 07/27/23 22:34 78 22 121/59 L 98 07/27/23 22:00 78 15 98 O2 Del Method 07/28/23 09:31 Room Air 07/28/23 08:07 07/28/23 07:43 Room Air 07/28/23 07:15 Room Air 07/28/23 06:01 Room Air 07/28/23 04:00 Room Air 07/28/23 02:30 Room Air 07/28/23 02:00 Room Air 07/28/23 01:00 Room Air 07/28/23 00:06 Room Air 07/27/23 23:00 07/27/23 23:00 Room Air 07/27/23 22:34 Room Air 07/27/23 22:00 Room Air Laboratory Results Laboratory Results - last 24 hr 07/27/23 07/27/23 07/27/23 19:25 19:59 22:54 WBC 5.80 RBC 4.43 Hgb 13.6 Hct 40.9 MCV 92.3 MCH 30.7 MCHC 33.3 RDW Std Deviation 47.8 H RDW Coeff of Selena 14.2 Plt Count 176 MPV 11.1 Immature Gran % (Auto) 0.2 Neut % (Auto) 72.0 Lymph % (Auto) 20.3 Wilcox % (Auto) 6.7 Eos % (Auto) 0.3 Baso % (Auto) 0.5 Neut # (Auto) 4.17 Lymph # (Auto) 1.18 L Wilcox # (Auto) 0.39 Eos # (Auto) 0.02 Baso # (Auto) 0.03 Immature Gran # (Auto) 0.01 PT 10.9 INR 1.0 Sodium 138 Potassium 4.0 Chloride 108 H Carbon Dioxide 23 Anion Gap 7 BUN 16 Creatinine 1.01 Est Cr Clr Drug Dosing 70.0 Est GFR ( Amer) 82.9 Est GFR (Non-Af Amer) 71.6 BUN/Creatinine Ratio 15.8 Glucose 107 H Calcium 8.2 L Phosphorus 2.3 L Magnesium 1.7 Total Bilirubin 0.6 AST 20 ALT 23 Alkaline Phosphatase 45 Total Creatine Kinase 159 Troponin I High Sens 17.2 H 28.6 H D Total Protein 7.1 Albumin 4.3 Globulin 2.8 Albumin/Globulin Ratio 1.5 TSH 2.988 Prolactin 38.11 HCG, Qual Negative Urine Color Dark Yellow Urine Appearance Clear Urine pH 5.0 Ur Specific [place] 1.028 Urine Protein 1+ H Urine Glucose (UA) Negative Urine Ketones Trace H Urine Blood Negative Urine Nitrite Negative Urine Bilirubin Negative Urine Urobilinogen Negative Ur Leukocyte Esterase Trace H Urine WBC (Auto) 0-5 Urine RBC (Auto) 0-2 U Hyaline Cast (Auto) 3-5 H U Epithel Cells (Auto) 3-5 H Urine Bacteria (Auto) None Seen Urine Opiates Screen Neg Ur Methadone, Qual Neg Urine Barbiturates Neg Ur Phencyclidine (PCP) Neg U Amphetamin/Meth Scrn Neg Urine MDEA Pending MDMA (Ecstasy) Screen Pos H MDMA Pending Urine MDMA Pending U Benzodiazepines Scrn Neg Ur Cocaine Metabolite Neg U Marijuana (THC) Screen Neg Ethyl Alcohol mg/dL < 10.0 07/28/23 04:43 WBC RBC Hgb Hct MCV MCH MCHC RDW Std Deviation RDW Coeff of Selena Plt Count MPV Immature Gran % (Auto) Neut % (Auto) Lymph % (Auto) Wilcox % (Auto) Eos % (Auto) Baso % (Auto) Neut # (Auto) Lymph # (Auto) Wilcox # (Auto) Eos # (Auto) Baso # (Auto) Immature Gran # (Auto) PT INR Sodium Potassium Chloride Carbon Dioxide Anion Gap BUN Creatinine Est Cr Clr Drug Dosing Est GFR ( Amer) Est GFR (Non-Af Amer) BUN/Creatinine Ratio Glucose Calcium Phosphorus Magnesium Total Bilirubin AST ALT Alkaline Phosphatase Total Creatine Kinase Troponin I High Sens 12.9 D Total Protein Albumin Globulin Albumin/Globulin Ratio TSH Prolactin HCG, Qual Urine Color Urine Appearance Urine pH Ur Specific [place] Urine Protein Urine Glucose (UA) Urine Ketones Urine Blood Urine Nitrite Urine Bilirubin Urine Urobilinogen Ur Leukocyte Esterase Urine WBC (Auto) Urine RBC (Auto) U Hyaline Cast (Auto) U Epithel Cells (Auto) Urine Bacteria (Auto) Urine Opiates Screen Ur Methadone, Qual Urine Barbiturates Ur Phencyclidine (PCP) U Amphetamin/Meth Scrn Urine MDEA MDMA (Ecstasy) Screen MDMA Urine MDMA U Benzodiazepines Scrn Ur Cocaine Metabolite U Marijuana (THC) Screen Ethyl Alcohol mg/dL Diagnostic Findings CTA HEAD 07/27/23: Right internal carotid artery: No acute findings. Intracranial segment is patent with no significant stenosis. No aneurysm. Right anterior cerebral artery: Unremarkable. No occlusion or significant stenosis. No aneurysm. Right middle cerebral artery: Unremarkable. No occlusion or significant stenosis. No aneurysm. Right posterior cerebral artery: Unremarkable. No occlusion or significant stenosis. No aneurysm. Right vertebral artery: Unremarkable as visualized. Left internal carotid artery: No acute findings. Intracranial segment is patent with no significant stenosis. No aneurysm. Left anterior cerebral artery: Unremarkable. No occlusion or significant stenosis. No aneurysm. Left middle cerebral artery: Unremarkable. No occlusion or significant stenosis. No aneurysm. Left posterior cerebral artery: Unremarkable. No occlusion or significant stenosis. No aneurysm. Left vertebral artery: Unremarkable as visualized. Basilar artery: Unremarkable. No occlusion or significant stenosis. No aneurysm. IMPRESSION: No acute finding of the arteries of the head. CTA NECK 07/27/23: Right common carotid artery: Unremarkable. No occlusion or significant stenosis. No dissection. Right internal carotid artery: Unremarkable. Extracranial segment is patent with no occlusion or significant stenosis. No dissection. Right external carotid artery: Unremarkable. No occlusion. Right vertebral artery: Unremarkable. No occlusion or significant stenosis. No dissection. Left common carotid artery: Unremarkable. No occlusion or significant stenosis. No dissection. Left internal carotid artery: Unremarkable. Extracranial segment is patent with no occlusion or significant stenosis. No dissection. Left external carotid artery: Unremarkable. No occlusion. Left vertebral artery: Unremarkable. No occlusion or significant stenosis. No dissection IMPRESSION: No acute finding of the arteries of the neck. CT HEAD 07/27/23: FINDINGS: Brain: Unremarkable. No significant white matter disease. No intracranial hemorrhage, mass-effect or midline shift. No abnormal extra axial fluid. No evidence of acute infarct. Ventricles: Unremarkable. No ventriculomegaly. Bones/joints: Unremarkable. No acute fracture. Soft tissues: Unremarkable. Sinuses: There is mild mucosal thickening of the ethmoid and maxillary sinuses. The remaining visualized paranasal sinuses are clear. Mastoid air cells: Unremarkable as visualized. No mastoid effusion. IMPRESSION: No acute intracranial finding . Medications Administered Medication List Potassium Chloride/Sodium Chloride (Normal Saline W/20 Meq Kcl) 20 meq in 1,000 mls @ 100 mls/hr IV .Q10H STA; Protocol Stop: 07/28/23 11:53 Last Admin: 07/28/23 02:21 Dose: 100 mls/hr Documented By: LATOSHA Discontinued Medications Dexamethasone Sodium Phosphate (DexamethasonePf 10 Mg/Ml Vial) 10 mg IV NOW ONE Stop: 07/27/23 22:13 Last Admin: 07/27/23 23:23 Dose: 10 mg Documented By: LATOSHA Sodium Chloride (Nss) 1,000 mls @ 999 mls/hr IV .Q1H1M SHELBI Stop: 07/27/23 21:15 Last Infusion: 07/27/23 23:24 Dose: Infused Documented By: Admin: 07/27/23 21:59 Dose: 999 mls/hr Documented By: Infusion: 07/27/23 21:59 Dose: Infused Documented By: Admin: 07/27/23 21:58 Dose: 999 mls/hr Documented By: LATOSHA Acetaminophen (Ofirmev) 1,000 mg in 100 mls @ 400 mls/hr IV NOW STA Stop: 07/27/23 22:04 Last Infusion: 07/27/23 22:31 Dose: Infused Documented By: Admin: 07/27/23 21:57 Dose: 400 mls/hr Documented By: LATOSHA Ioversol (Optiray 320 125ml) 118 ml IV ONCE ONE Stop: 07/27/23 22:33 Last Admin: 07/27/23 22:33 Dose: 118 ml Documented By: MALACHI Miscellaneous (Remove Nicoderm Patch) 1 each N/A DAILY@0859 [facility] Stop: 07/28/23 09:00 Last Admin: 07/28/23 09:33 Dose: Not Given Documented By: ES Nicotine (Nicotine 21 Mg/24 Hr Tdsy) 1 patch TD NOW STA Stop: 07/28/23 00:33 Last Admin: 07/28/23 02:23 Dose: 1 patch Documented By: LATOSHA PG Care Time/CCT Total # of Minutes Spent Total Time Spent with Patient: Total time spent is greater than 50% in coordination of care (as documented) at patient's floor/unit and/or counseling patient:45 [place] [address] INT INP/OBS CARE 2/55MIN Patient Type New History Comprehensive Exam Comprehensive Medical Decision Making Moderate Complexity Diagnoses Elevated troponin R79.89 Witnessed seizure-like activity R56.9 Adverse effect of herbal medication T50.995A Time Spent (min) 58
[2023-07-28] MEDS: NICOTINE 21 MG/24 HR TDSY TD SCH (10:27)
[2023-07-28 10:38] LABS: Hematocrit (blood only) 42.5 % (37.0-47.0); Mean Corpuscular Hemoglobin 30.5 pg (25.0-34.0); Mean Corpuscular Hgb Conc 32.9 g/dL (32.0-36.0); Mean Corpuscular Volume 92.6 fL (80.0-100.0); Mean Platelet Volume 10.8 fL (9.4-12.4); Platelet Count 196 K/uL (130-400); RDW Coefficient of Variation 14.2 % (11.5-14.5); Red Blood Count 4.59 M/uL (4.20-5.40); White Blood Count 6.01 K/ul (4.8-10.8)
[2023-07-28 11:27] LABS: Albumin Globulin Ratio 1.5 (0.9-2); Bilirubin,Total 0.7 mg/dl (0.2-1.0); Calcium 8.5 mg/dl (8.6-10.3); Creatinine Clr Calc Pharmacy 86.8 ml/min; Est GFR (African American) 108.3 ml/min; Est GFR (Non-African American) 93.4 ml/min; Globulin 2.7 gm/dl (2.5-4.0); Magnesium 1.7 mg/dl (1.7-2.4); Potassium 4.2 mmol/L (3.5-5.1); Total Protein 6.7 gm/dl (6.0-8.3)
--- NOTE | 2023-07-28 12:13 | Hospitalist Progress Note ---
Date of Service July 28, 2023 Assessment & Plan Admission and Anticipated Discharge Date Admission Date: July 28, 2023 Subjective Eval around noon, using restroom. Feeling well, no further seizure activity. Seen by neurology, MRI brain ordered but not yet done. Echo done but not yet read. Patient would like to go if possible. Discussed excessive work schedule/time off and sleep/hydration and nutrition. She does report losing about 70 pounds since using the Kratom, smoker. Did use Wellbutrin in past w/ kratom but felt funny and wanting to consider back on for cessation. Discussed w/ seizure would NOT use Wellbutrin. Denied MDMA use however could have been from the Kratom. ?contamination. Either way, encouraged avoidance of such. She reports living with her mother, 3 children in [place]. Does have hx hep C, not treated and didn't want to tell PCP about treatment while on Kratom. Ok to call PCP for discussion and plan at [place]. Results & Data Results & Data Vital Signs (Past 12 Hours) Vital Signs Temp Pulse Pulse Resp BP BP Pulse Ox 07/28/23 11:30 63 20 95 07/28/23 11:00 65 21 95 07/28/23 10:29 81 20 97 07/28/23 09:31 78 20 98 07/28/23 08:07 64 07/28/23 07:43 36.9 C 58 L 20 126/72 98 07/28/23 07:15 19 115/76 99 07/28/23 06:01 68 19 115/76 98 07/28/23 04:00 66 17 107/69 98 07/28/23 02:30 63 19 97 07/28/23 02:00 64 13 116/77 97 07/28/23 01:00 58 L 15 130/72 97 O2 Del Method 07/28/23 11:30 07/28/23 11:00 07/28/23 10:29 Room Air 07/28/23 09:31 Room Air 07/28/23 08:07 07/28/23 07:43 Room Air 07/28/23 07:15 Room Air 07/28/23 06:01 Room Air 07/28/23 04:00 Room Air 07/28/23 02:30 Room Air 07/28/23 02:00 Room Air 07/28/23 01:00 Room Air PG Care Time/CCT Total # of Minutes Spent Total Time Spent with Patient: Total time spent is greater than 50% in coordination of care (as documented) at patient's floor/unit and/or counseling patient: Coding
--- NOTE | 2023-07-28 12:39 | Discharge Summary ---
Date of Service July 28, 2023 Admission HPI Per Admitting Provider The patient is a 38-year-old female with a past medical history including present tobacco use, GERD, endometriosis, history of , history of miscarriage, gallbladder sludge, asthma, and anxiety who presents to the emergency department after a syncopal episode accompanied by seizure-like activity after falling to the floor at work. She did not have any loss of bowel or bladder control, but was confused for a few hours afterwards. She also reports some chest discomfort with palpitations associated with rapid heartbeat that lasted for several minutes after the episode. She had no previous episodes of this type of activity. She reports that she has been taking kratom, an [id number] herbal medication for pain control, and has been taking more recently than usual. Admission Exam Per Admitting Provider The patient is awake, alert and oriented 3, well developed and well nourished, normocephalic and atraumatic, lying in bed and in no acute distress. HEENT--PERRL, EOMI, mucous membranes and oropharynx mildly dry. Neck--supple. No JVD. No bruits. Thyroid normal, trachea midline, no adenopathy. Heart--normal S1 and S2. No murmurs, rubs or gallops. Lungs--clear bilaterally, no respiratory distress, no accessory muscle use. Abdomen--normal bowel sounds and soft. Nontender. Nondistended, no hernias or masses, no organomegaly. Extremities--no cyanosis or clubbing. No edema. Dermatologic--normal skin turgor, normal color, no abnormal lymph nodes, no rash. Neurologic--cranial nerves II through XII grossly intact. Rheumatologic--normal range of motion. Psychiatric--normal affect. Principal Diagnosis Seizure like activity, Kratom use Discharge Exam General: 38yo female coming back from bathroom, NAD, appears well, wanting to go home if able Head atraumatic, normocephalic, mmm, trachea midline tongue with some prior bite [place]/bruising Resp: even/unlabored no w/c/r, on room air CV: RRR, no significant m/r/g, no pitting edema/calf tenderness GI: +BS, soft/NT : no graves MSk/Neuro: nonfocal, answering questions, strength equal bilaterally Psych: AOx3, cooperative with exam Discharge Data Allergies Allergy/AdvReac Type Severity Reaction Status Date / Time amoxicillin AdvReac Mild NAUSEA AND Verified 07/28/23 01:59 VOMITING clavulanic acid AdvReac Mild NAUSEA AND Verified 07/28/23 01:59 VOMITING guaifenesin AdvReac Mild N/V Verified 07/28/23 01:59 phenylephrine AdvReac Mild N/V Verified 07/28/23 01:59 phenylpropanolamine AdvReac Mild N/V Verified 07/28/23 01:59 Consultations 07/28/23 00:32 ED Decision to Admit Stat 07/28/23 01:48 Consult Neurology Stat 07/28/23 02:18 Consult Cardiology Routine Ordered Studies Head CT 07/27/23 22:12 Exam(s): CT HEAD Without Contrast EXAM: CT Head Without Intravenous Contrast CLINICAL HISTORY: [place], syncope, seizure. TECHNIQUE: Axial computed tomography images of the head/brain without intravenous contrast. CTDI is 38 mGy and DLP is 546.36 mGy-cm. Automated exposure control was utilized for the study. A dose lowering technique was utilized adhering to the principles of ALARA. COMPARISON: CT head 08/11/2011 FINDINGS: Brain: Unremarkable. No significant white matter disease. No intracranial hemorrhage, mass-effect or midline shift. No abnormal extra axial fluid. No evidence of acute infarct. Ventricles: Unremarkable. No ventriculomegaly. Bones/joints: Unremarkable. No acute fracture. Soft tissues: Unremarkable. Sinuses: There is mild mucosal thickening of the ethmoid and maxillary sinuses. The remaining visualized paranasal sinuses are clear. Mastoid air cells: Unremarkable as visualized. No mastoid effusion. IMPRESSION: No acute intracranial finding. Electronically signed by: Nadeen Méndez MD 07/27/23 23:14 PM Head CTA 07/27/23 22:12 Exam(s): CTA HEAD With Contrast IV Amt: 118 ml opti 320 EXAM: CT Angiography Head With Intravenous Contrast CLINICAL HISTORY: Headache and seizure TECHNIQUE: Axial computed tomographic angiography images of the head with intravenous contrast. 3D and MIPS images were created and reviewed. CTDI is 38.1 mGy and DLP is 546.36 mGy-cm. Automated exposure control was utilized for the study. A dose lowering technique was utilized adhering to the principles of ALARA. MIP reconstructed images were created and reviewed. CONTRAST: Patient received 118 ml opti 320 of IV contrast COMPARISON: No relevant prior studies available. FINDINGS: Right internal carotid artery: No acute findings. Intracranial segment is patent with no significant stenosis. No aneurysm. Right anterior cerebral artery: Unremarkable. No occlusion or significant stenosis. No aneurysm. Right middle cerebral artery: Unremarkable. No occlusion or significant stenosis. No aneurysm. Right posterior cerebral artery: Unremarkable. No occlusion or significant stenosis. No aneurysm. Right vertebral artery: Unremarkable as visualized. Left internal carotid artery: No acute findings. Intracranial segment is patent with no significant stenosis. No aneurysm. Left anterior cerebral artery: Unremarkable. No occlusion or significant stenosis. No aneurysm. Left middle cerebral artery: Unremarkable. No occlusion or significant stenosis. No aneurysm. Left posterior cerebral artery: Unremarkable. No occlusion or significant stenosis. No aneurysm. Left vertebral artery: Unremarkable as visualized. Basilar artery: Unremarkable. No occlusion or significant stenosis. No aneurysm. IMPRESSION: No acute finding of the arteries of the head. Electronically signed by: Nadeen Méndez MD 07/27/23 23:21 PM Neck CTA 07/27/23 22:12 Exam(s): CTA NECK With Contrast IV Amt: 118 ml opti 320 EXAM: CT Angiography Neck With Intravenous Contrast CLINICAL HISTORY: Headache and seizure. TECHNIQUE: Routine carotid CT angiography protocol was performed with intravenous contrast. NASCET criteria using the distal ICAs for comparison were used for evaluation of stenoses. MIPS images were created and reviewed. CTDI is 11 mGy and DLP is 415 mGy-cm. Automated exposure control was utilized for the study. A dose lowering technique was utilized adhering to the principles of ALARA. MIP reconstructed images were created and reviewed. CONTRAST: Patient received 118 ml opti 320 of IV contrast COMPARISON: None. FINDINGS: VASCULATURE: Right common carotid artery: Unremarkable. No occlusion or significant stenosis. No dissection. Right internal carotid artery: Unremarkable. Extracranial segment is patent with no occlusion or significant stenosis. No dissection. Right external carotid artery: Unremarkable. No occlusion. Right vertebral artery: Unremarkable. No occlusion or significant stenosis. No dissection. Left common carotid artery: Unremarkable. No occlusion or significant stenosis. No dissection. Left internal carotid artery: Unremarkable. Extracranial segment is patent with no occlusion or significant stenosis. No dissection. Left external carotid artery: Unremarkable. No occlusion. Left vertebral artery: Unremarkable. No occlusion or significant stenosis. No dissection. NECK: Bones/joints: Unremarkable. No acute fracture. Soft tissues: Unremarkable. Lung apices: Clear. CAROTID STENOSIS REFERENCE USING NASCET CRITERIA: % ICA stenosis = (1 - narrowest ICA diameter/diameter of distal cervical ICA) x 100. Mild - <50% stenosis. Moderate - 50-69% stenosis. Severe - 70-94% stenosis. Near occlusion - 95-99% stenosis. Occluded - 100% stenosis. IMPRESSION: No acute finding of the arteries of the neck. Electronically signed by: Nadeen Ménedz MD 07/27/23 23:21 PM Brain MRI 07/28/23 01:48 MRI OF THE BRAIN WITHOUT IV CONTRAST CLINICAL HISTORY: Seizure-like activity. COMPARISON STUDY: CT of the brain dated 07/27/2023. TECHNIQUE: MRI of the brain was performed utilizing various T1 and T2-weighted sequences in the axial, sagittal, and coronal planes. IV contrast was not administered for this examination. FINDINGS: Brain parenchyma: There is symmetric and nonspecific increased T1 signal within the basal ganglia bilaterally. The brain parenchyma is otherwise normal in appearance. There is no hemorrhage or mass effect. There is no restricted diffusion to suggest acute ischemia. Osman-white matter differentiation is preserved. No extra-axial fluid collection is seen. An 8 mm pineal cyst is incidentally noted. The cerebellar tonsils are normal in configuration. The hippocampi are normal and symmetric. Ventricles, sulci, and cisterns: Normal in configuration. Pituitary and sella: Unremarkable. Intracranial vasculature: Normal flow voids are maintained at the skull base. Orbits: The bony orbits are grossly intact. Orbital contents are normal in appearance. Sinuses and mastoids: There is trace mucosal thickening and an 8 mm retention cyst in the left maxillary antrum. Trace mucosal thickening is also seen in the ethmoid sinuses. The mastoid air cells are clear. Calvarium: Unremarkable. Cervical cord: Partially visualized cervical spinal cord is normal in morphology and signal intensity. IMPRESSION: 1. There is no hemorrhage, mass effect, or evidence of acute ischemia. 2. There is symmetric increased T1 signal within the basal ganglia bilaterally. This is nonspecific finding and can be seen with metabolic abnormalities. Clinical correlation will be essential. ACT 112: Negative or not required by law. Electronically signed by: Manuel Winston M.D. 07/28/2023 1:30 PM ECHOCARDIOGRAM 07/28/2023 This was essentially a normal study. The study was diagnostic quality. LV is normal in size. Borderline concentric LV hypertrophy. LV EF is normal, 55- 60%. The left ventricular wall motion is normal. Hospital Course (1) Witnessed seizure-like activity: 38yo female admitted after having 2-3 minute episode of seizure like activity with lip biting and tonic/clonic movements reported at work and brought in to ER by EMS. Reported increased HR after syncopal episode lasting for several minutes and denied any chest pain but did note elevated HR. Reports excessive caffeine use/no water intake/dehydration, poor appetite/diet along with increased work hours/poor sleep and Kratom use OTC for opiate withdrawal symptoms since use of Heroin for about ~6months over four years ago for cessation which she reports had been effective but also noted increased weight loss while on this medication. She reports she was worried about discussing the Kratom use with her PCP (Dr Garrett) and specifically in regards to treating her hepatitis C from drug use and no prior treatment. She does have 3 children who live in [place] and lives with her mother currently. On admission, given NSS bolus x 2, tylenol 1gm IV and dexamethasone 10mg Placed on IVF for hydration and cardiology as well as neurology consulted UDS positive for MDMA (?contaminent in Kratom, denied use, all other screening drugs negative). No alcohol use reported CT head NEGATIVE CTA head/neck NEGATIVE MRI brain ordered which noted 1. There is no hemorrhage, mass effect, or evidence of acute ischemia. 2. There is symmetric increased T1 signal within the basal ganglia bilaterally. This is nonspecific finding and can be seen with metabolic abnormalities. Clinical correlation will be essential. Neurology consult- EEG negative. Discussed MRI and ok for discharge, likely from retirement metabolic derangements from drug use. Nothing acute requiring further testing On telemetry, has been NSR. Troponin elevation 17.2--> 28.6, repeat trended down 12.9--> 7.1. No CP reported. Suspect likely demand ischemia from dehydration/elevated HR following syncopal episode. Encouraged to limit caffeine use and increase hydration, improvement in diet. Did discuss nicotine use as well, patch ordered. Prior use of wellbutrin for cessation but stopped and continued kratom as needed for maintaining withdrawal symptoms. Notable her mother wants her to go to [facility] inpatient, has not had success at NA meetings/etc. Support provided. Suspect syncopal episode/seizure like activity in setting of dehydration, caffeine/kratom use, nicotine, sleep deprivation. Cardiology was consulted and did not suspect needing further work-up ECHO -This was essentially a normal study. The study was diagnostic quality. LV is normal in size. Borderline concentric LV hypertrophy. LV EF is normal, 55- 60%. The left ventricular wall motion is normal. Did note mild TR, DE. No significant mitral valve stenosis, no hemodynamically significant valvular aortic stenosis Also reported baseline RLS/cramping, mag 1.7 and IV 1gm ordered and can take OTC at dc. Iron studies without significant deficiency. Encouraged follow up with primary care and I contacted her PCP for discussion regarding admission. She was agreeable to follow up with current PCP. Encouraged to take next 1-2 days off/rest. Also discussed and ordered vistaril 10mg to take as needed. Sent for short course for anxiety symptoms as non-addicting and if effective can be continued in follow up with primary care To return to ER with any repeat symptoms, aura. Hydration encouraged. No driving. To be staying with her mother. (2) Elevated troponin: suspected 2nd to demand ischemia/dehydration on admission NO CP reported. Normalized and remained negative x 2. Can consider outpt holter monitor if any repeats but also encouraged decreasing caffeine use as above as well as nicotine (3) Syncope: as above, 2nd to dehydration/medication use imaging/echo as above ambulating in the room without issues or further reports of feeling off (4) Palpitations: reported following syncopal episode.nsr on monitor. ekg w/o ischemia, borderline L atrial enlargement troponin trended down/normalized as above, outpt f/u echo w/o wma (5) Adverse effect of herbal medication: rec abstaining from kratom as above vistaril for anxiety/sleep symptoms outpatient follow up (6) Hepatitis C: noted by patient, has not had treatment as outlined f/u PCP as discussed to begin treatment for her hepatitis C (7) Vitamin D deficiency: checked due to poor nutrition/fatigue/sleep, depression. TSH wnl Vitamin D LOW 15.7, PO replacement rx sent at dc Plan discharged home with mother Total Time Total Time Spent Total Time Spent (In Minutes): 60 Discharge Plan Discharge Items Patient Disposition: Home - Self-Care Reason For Visit: ELEVATED TROPONIN, PALPITATIONS Discharge Diagnosis: Seizure activity, palpitations, Kratom use Goals: You have been hospitalized for an acute medical problem. During your stay at [facility], we have made an effort to correct the problem that brought you to the hospital while keeping you as comfortable as possible. Medications were used to bring your condition under control and your discharge instructions will include directions for any medications you should take after leaving the hospital. Please make sure you see your Primary Care Provider as part of your follow up plan. Activity: As commented below Exercise/Sports: Rest today Driving/Machine Use: no driving next 24 hours, can resume if no further issues Non-emergency contact: Primary Care Provider Call non-emergency contact if: you have any medication questions, your symptoms worsen and you have a fever Follow-up/Referrals: William Valdez [Primary Care Provider] - Diet: Regular Addtl Attending Provider Instructions: You have been hospitalized for possible seizure which is likely from the Kratom you have been using over the counter. Brain imaging was negative and EEG negative and consultation was undertaken with neurology and you have NOT been recommended to continue on anti-seizure medications. Cardiology was consulted and your troponin levels normalized. ECHO (ultrasound of the heart) was completed and negative for wall motion abnormalities. It is suspected combination of dehydration, poor nutrition, smoking, poor sleep and Kratom use have all contributed and encourage increased hydration, limiting caffeine and trying to cut back on smoking. We have send a prescription to use for Vistaril for anxiety/sleep. I have send 10mg tablets and encourage you to try 10mg tablet on your day off tomorrow to see how you tolerate. You can use 10mg as needed three times daily for anxiety but also can consider 25mg at night to help with sleep. I have spoken to your primary care provider and you should have follow up in the next 7-10 days. He is agreeable to start treatment for your Hepatitis C and Kratom use was discussed. Please return to the ER with any increased confusion, chest pain, shortness of breath, or for any other symptoms concerning for you. It has been a pleasure being a part of the medical team providing for you while you have been in the hospital. Take care! Pending Studies at Discharge: Yes Studies:: UDS confirmation Stand-Alone Forms: My [facility], Work/School Release, Smoking Cessation Medications and DC Order Prescriptions: New hydroxyzine HCl 10 mg tablet 10 mg PO Q8H PRN (Reason: anxiety or sleep) Qty: 14 0RF cholecalciferol (vitamin D3) [Vitamin D3] 50 mcg (2,000 unit) capsule 50 mcg PO DAILY Qty: 30 0RF Continued ibuprofen 200 mg Tablet 400 mg PO Q6H PRN (Reason: Pain) Discontinued Kratom 1 tab PO DIRECTED PRN (Reason: Pain) Rx Instructions: Substitute for opium Discharge Orders: Discharge Order (Routine); Ordered 07/28/23 Ordered By: Raegan Henriquez Admission Data Admit Date/Time: 07/28/23 01:44 Attending Provider: Winston Vega Admit Provider: James Valenzuela Primary Care Provider: William Valdez Other Providers: James Valenzuela; William Bautista; Sorin Gudino Supervising Physician Co-Signing Physician Notes The patient was not seen by me. The chart was reviewed. Case discussed with ALEJANDRO Hughes. Agree with assessment and plan. She is medically stable for discharge Coding Level of Care Code INP/OBS EV SAME DAY LV 3,85MIN Diagnoses Witnessed seizure-like activity R56.9 Elevated troponin R79.89 Syncope R55 Syncope type: unspecified Palpitations R00.2 Adverse effect of herbal medication T50.995A Hepatitis C B19.20 Vitamin D deficiency E55.9
[2023-07-28 13:04] LABS: Ferritin 54.6 ng/ml (8-388)
--- NOTE | 2023-07-28 13:32 | Magnetic Resonance Report ---
MRI OF THE BRAIN WITHOUT IV CONTRAST CLINICAL HISTORY: Seizure-like activity. COMPARISON STUDY: CT of the brain dated 07/27/2023. TECHNIQUE: MRI of the brain was performed utilizing various T1 and T2-weighted sequences in the axial , sagittal, and coronal planes. IV contrast was not administered for this examination. FINDINGS: Brain parenchyma: There is symmetric and nonspecific increased T1 signal within the basal ganglia ulices aterally. The brain parenchyma is otherwise normal in appearance. There is no hemorrhage or mass effe ct. There is no restricted diffusion to suggest acute ischemia. Osman-white matter differentiation is preserved. No extra-axial fluid collection is seen. An 8 mm pineal cyst is incidentally noted. The ce rebellar tonsils are normal in configuration. The hippocampi are normal and symmetric. Ventricles, sulci, and cisterns: Normal in configuration. Pituitary and sella: Unremarkable. Intracranial vasculature: Normal flow voids are maintained at the skull base. Orbits: The bony orbits are grossly intact. Orbital contents are normal in appearance. Sinuses and mastoids: There is trace mucosal thickening and an 8 mm retention cyst in the left maxill chase antrum. Trace mucosal thickening is also seen in the ethmoid sinuses. The mastoid air cells are c lear. Calvarium: Unremarkable. Cervical cord: Partially visualized cervical spinal cord is normal in morphology and signal intensity . IMPRESSION: 1. There is no hemorrhage, mass effect, or evidence of acute ischemia. 2. There is symmetric increased T1 signal within the basal ganglia bilaterally. This is nonspecific f inding and can be seen with metabolic abnormalities. Clinical correlation will be essential. ACT 112: Negative or not required by law. Electronically signed by: Manuel Winston M.D. 07/28/2023 1:30 PM
[2023-07-28] MEDS: MAGNESIUM SULFATE / D5W 1 GM/100 ML BAG IV ONE (13:45)
--- NOTE | 2023-07-28 15:08 | Electrocardiogram Report ---
Test Reason : Blood Pressure : / mmHG Vent. Rate : 108 BPM Atrial Rate : 108 BPM P-R Int : 182 ms QRS Dur : 108 ms QT Int : 356 ms P-R-T Axes : 076 075 063 degrees QTc Int : 477 ms Sinus tachycardia Possible Left atrial enlargement Borderline ECG When compared with ECG of 11-AUG-2011 11:20, Vent. rate has increased BY 50 BPM Questionable change in QRS duration Confirmed by Jessee Alexis ([id number]) on 07/28/2023 3:07:42 PM Referred By: REFERRED SELF Confirmed By:Jessee Alexis
--- NOTE | 2023-07-28 17:13 | XCELERA ---
[id number]
[2023-07-31 18:12] LABS: MDA negative; MDEA negative; MDMA (Ecstasy) Urine, Confirm negative
== END 2023-07-29 16:20 | disposition home or self-care (01) ==
LOC: EDINP 18:47 → ED 18:47 → SUATTDRO 07-28 01:44 → EDINP 07-28 17:14

== ENCOUNTER 2024-06-10 21:41 | Observation (INO) ==
[2024-06-10 22:30] LABS: Appearance Urine Clear (Clear); Bacteria Urine Automated None Seen (None Seen); Bilirubin Urine Negative (Negative); Blood Urine Negative (Negative); Color Urine Yellow; Epithelial Cell Urine Auto 0-2 /hpf (0-2); Glucose Urine UA Negative (Negative); Ketones Urine Trace (Negative); Leukocyte Esterase Urine Negative (Negative); Nitrite Urine Negative (Negative); Protein Urine Trace (Negative); RBC Urine Automated 0-2 /hpf (0-2); Specific Gravity Urine 1.021 (1.000-1.030); Urobilinogen Urine Negative (Negative); WBC Urine Automated 0-5 /hpf (0-5)
[2024-06-10] MEDS: SODIUM CHLORIDE 0.9% 1,000 ML IV ONE (22:49)
[2024-06-10 23:00] LABS: Amphetamines+Metham, Urine Neg (Neg); Barbiturates, Urine Neg (Neg); Benzodiazepine, Urine Neg (Neg); Cocaine, Urine Neg (Neg); Fentanyl, Urine Pos (Neg); MDMA (Ecstacy), Urine Neg (Neg); Marijuana, Urine Neg (Neg); Methadone, Urine Neg (Neg); Opiate, Urine Neg (Neg); Phencyclidine, Urine Neg (Neg)
[2024-06-10 23:02] LABS: Basophils # (auto) 0.05 K/uL (0.00-0.20); Basophils % (auto) 0.7 %; Hemoglobin 13.9 g/dl (12.0-16.0); Immature Granulocytes # (auto) 0.01 K/uL (0.01-0.20); Immature Granulocytes % (auto) 0.1 %; Mean Corpuscular Hemoglobin 31.1 pg (25.0-34.0); Mean Corpuscular Hgb Conc 33.9 g/dL (32.0-36.0); Mean Corpuscular Volume 91.7 fL (80.0-100.0); Monocytes # (auto) 0.44 K/uL (0.11-0.59); Monocytes % (auto) 6.4 %; Neutrophils # (auto) 5.04 K/uL (1.40-6.50); Neutrophils % (auto) 73.8 %; Platelet Count 238 K/uL (130-400); RDW Coefficient of Variation 12.9 % (11.5-14.5); RDW Standard Deviation 42.8 fL (36.4-46.3); Red Blood Count 4.47 M/uL (4.20-5.40); White Blood Count 6.84 K/ul (4.8-10.8)
[2024-06-10 23:08] LABS: Pregnancy Test, Urine Negative (Negative)
[2024-06-10 23:20] LABS: Albumin Globulin Ratio 1.6 (0.9-2); Albumin Level 4.3 gm/dl (3.4-5.0); BUN Creatinine Ratio 17.4 (10-20); Bilirubin,Total 0.5 mg/dl (0.2-1.0); Creatinine Clr Calc Pharmacy 66.2 ml/min; Globulin 2.7 gm/dl (2.5-4.0); Magnesium 1.7 mg/dl (1.7-2.4); Potassium 4.1 mmol/L (3.5-5.1)
--- NOTE | 2024-06-10 23:22 | Emergency Department Note ---
History of Present Illness General Chief complaint: Seizure Stated complaint: SEIZURE History of Present Illness This 39-year-old female who has been abusing kraton [id number] opiate like medications presents ER for seizure. Patient states she normally takes 40 tablets 3 times a day but today took 40 tablets 4 times a day. Mother states that she became confused and seized for 2 to 3 minutes and had generalized shaking and then was postictal. Patient did bite her tongue. Patient states she had a similar episode last year and was seen at this facility. Patient denies any other drug use. She states she feels back at baseline now. Patient denies any other current drug use or alcohol use. Patient denies chest pain, dyspnea, headache, numbness, tingling, localized weakness. She has a history of IV drug abuse and has been clean for 8 years. She does have hepatitis C. Home Medications Medication Instructions Recorded Confirmed Type Kratom 1 tab PO DIRECTED PRN Pain 07/28/23 07/28/23 History cholecalciferol (vitamin D3) 50 50 mcg PO DAILY #30 caps 07/28/23 Rx mcg (2,000 unit) capsule (Vitamin D3) hydroxyzine HCl 10 mg tablet 10 mg PO Q8H PRN anxiety or sleep 07/28/23 Rx #14 tabs ibuprofen 200 mg tablet 400 mg PO Q6H PRN Pain 07/28/23 07/28/23 History Allergies Allergy/AdvReac Type Severity Reaction Status Date / Time amoxicillin AdvReac Mild NAUSEA AND Verified 07/28/23 01:59 VOMITING clavulanic acid AdvReac Mild NAUSEA AND Verified 07/28/23 01:59 VOMITING guaifenesin AdvReac Mild N/V Verified 07/28/23 01:59 phenylephrine AdvReac Mild N/V Verified 07/28/23 01:59 phenylpropanolamine AdvReac Mild N/V Verified 07/28/23 01:59 Past Med/Surg History Problem List (Updated 06/10/24 @ 23:[address] PA-C) Overdose (Acute) Seizure (Acute) Vitamin D deficiency Hepatitis C Adverse effect of herbal medication (Acute) Elevated troponin (Acute) Syncope (Acute) Witnessed seizure-like activity (Acute) Right lower quadrant abdominal pain (Acute) Right upper quadrant abdominal pain (Acute) Medical History Migraine headache Opioid abuse, in remission Social History Smoking Status: Current every day smoker Tobacco Type: Cigarettes Cigarettes Per Day: 20; Second Hand Exposure: No; Do You Dip or Chew Tobacco: No; Hx Alcohol Use: No Hx Substance Use: Yes Last Used Substance Other:: Krakom Substance Use Type Other:: Kratom Preferred Language: Japanese Communication Ability: Effective Research Professor Of Biostatistics Required: No Beliefs That Will Affect Care: None Current Living Situation: Parent Feels Safe at Home: Yes Assistive Devices: None Review of Systems A total of 10 systems reviewed and were otherwise negative Physical Exam Vital Signs Vital Signs - 24 hr 06/10/24 21:55 06/10/24 21:55 06/10/24 21:55 Temperature 37.2 C 37.2 C Temperature Source Oral Oral Pulse Rate 105 H Pulse Rate [Right Finger] 106 H Pulse Rhythm Regular Pulse Rhythm [Right Finger] Regular Pulse Strength Normal Pulse Strength [Right Finger] Normal Respiratory Rate 16 17 Respiratory Effort / Characteristics Non-Labored Spontaneous Non-Labored Spontaneous Respiratory Depth Normal Normal Respiratory Pattern Regular Regular Blood Pressure 135/87 Blood Pressure [Right Arm] 135/87 Blood Pressure Mean 103 Blood Pressure Mean [Right Arm] 103 Blood Pressure Position Lying Blood Pressure Position [Right Arm] Lying Pulse Oximetry 99 97 Oxygen Delivery Method Room Air Room Air Room Air Sepsis Recent Fever Within 48 Hours No Sepsis New/Unexplained Change in Mental Status No Sepsis Action Taken by Nursing No Action Required 06/10/24 21:56 06/10/24 23:37 Temperature Temperature Source Pulse Rate 103 H Pulse Rate [Right Finger] 86 Pulse Rhythm Pulse Rhythm [Right Finger] Regular Pulse Strength Pulse Strength [Right Finger] Normal Respiratory Rate 17 Respiratory Effort / Characteristics Non-Labored Spontaneous Respiratory Depth Normal Respiratory Pattern Regular Blood Pressure Blood Pressure [Right Arm] 119/73 Blood Pressure Mean Blood Pressure Mean [Right Arm] 88 Blood Pressure Position Blood Pressure Position [Right Arm] Lying Pulse Oximetry 97 Oxygen Delivery Method Room Air Sepsis Recent Fever Within 48 Hours Sepsis New/Unexplained Change in Mental Status Sepsis Action Taken by Nursing VITALS: Vitals are noted on the nurse's note and reviewed by myself. Vital signs stable. GENERAL: Pleasant patient tremulous appearing, in no acute distress, nondiaphoretic, well-developed well-nourished. SKIN: The skin was without rashes, erythema, edema, or bruising. There is no tenting of the skin. Capillary reflex less than 2 seconds. HEAD: Normocephalic atraumatic. EARS: External auditory canals clear EYES: Pupils equal round and reactive to light and accommodation. Conjunctivae without injection, sclerae without icterus. Extraocular movements intact. NOSE: Patent, no discharge. MOUTH: Mucous membranes moist. Pharynx without erythema or exudate. Uvula midline. Airway patent. Tongue does not deviate. NECK: Supple without nuchal rigidity. No lymphadenopathy. No thyromegaly. Cervical spine is nontender. No JVD. HEART: Regular rate and rhythm LUNGS: Clear to auscultation bilaterally without wheezes, rales or rhonchi. No retractions or accessory muscle use. ABDOMEN: Positive bowel sounds x 4. Normal tympanic percussion. Soft, nontender, without masses or organomegaly. Doyle sign negative. No guarding or rebound tenderness. No CVA tenderness MUSCULOSKELETAL: No muscle atrophy, erythema, or edema noted. NEURO: Patient was alert and oriented to person place and time. Normal sensation to light and sharp touch. No focal neurological deficits. Course Administered Medications Discontinued Medications Sodium Chloride (Nss) 1,000 mls @ 999 mls/hr IV .Q1H1M ONE Stop: 06/10/24 23:24 Last Admin: 06/10/24 22:49 Dose: 999 mls/hr Documented By: PHYLLIS Medical Decision Making Medical Records Attestation: I reviewed the patient's medical records. Home Medications Current Medication List: was personally reviewed by me Laboratory Data Attestation: I reviewed the patient's lab results. 06/10/24 22:36 06/10/24 22:36 Lab Results 06/10/24 06/10/24 Range/Units 22:36 Unknown WBC 6.84 (4.8-10.8) K/ul RBC 4.47 (4.20-5.40) M/uL Hgb 13.9 (12.0-16.0) g/dl Hct 41.0 (37.0-47.0) % MCV 91.7 (80.0-100.0) fL MCH 31.1 (25.0-34.0) pg MCHC 33.9 (32.0-36.0) g/dL RDW Std Deviation 42.8 (36.4-46.3) fL RDW Coeff of Selena 12.9 (11.5-14.5) % Plt Count 238 (130-400) K/uL MPV 10.0 (9.4-12.4) fL Immature Gran % (Auto) 0.1 % Neut % (Auto) 73.8 % Lymph % (Auto) 19.0 % [place] % (Auto) 6.4 % Eos % (Auto) 0.0 % Baso % (Auto) 0.7 % Neut # (Auto) 5.04 (1.40-6.50) K/uL Lymph # (Auto) 1.30 (1.20-3.40) K/uL [place] # (Auto) 0.44 (0.11-0.59) K/uL Eos # (Auto) 0.00 (0.00-0.50) K/uL Baso # (Auto) 0.05 (0.00-0.20) K/uL Immature Gran # (Auto) 0.01 (0.01-0.20) K/uL Sodium 137 (136-145) mmol/L Potassium 4.1 (3.5-5.1) mmol/L Chloride 103 (98-107) mmol/L Carbon Dioxide 26 (21-32) mmol/L Anion Gap 8 (3-11) BUN 19 (6-23) mg/dl Creatinine 1.09 (0.6-1.2) mg/dl Est Cr Clr Drug Dosing 66.2 ml/min eGFR 67.10 BUN/Creatinine Ratio 17.4 (10-20) Glucose 147 H (70-99(Fasting)) mg/dl Lactate 0.8 (0.4-2.0) mmol/L Calcium 8.0 L (8.6-10.3) mg/dl Magnesium 1.7 (1.7-2.4) mg/dl Total Bilirubin 0.5 (0.2-1.0) mg/dl AST 21 (13-39) U/L ALT 24 (7-52) U/L Alkaline Phosphatase 48 (34-104) U/L Total Creatine Kinase 166 (26-192) U/L Total Protein 7.0 (6.0-8.3) gm/dl Albumin 4.3 (3.4-5.0) gm/dl Globulin 2.7 (2.5-4.0) gm/dl Albumin/Globulin Ratio 1.6 (0.9-2) Urine Color Yellow Urine Appearance Clear (Clear) Urine pH 6.0 (4.5-7.5) Ur Specific [place] 1.021 (1.000-1.030) Urine Protein Trace H (Negative) Urine Glucose (UA) Negative (Negative) Urine Ketones Trace H (Negative) Urine Blood Negative (Negative) Urine Nitrite Negative (Negative) Urine Bilirubin Negative (Negative) Urine Urobilinogen Negative (Negative) Ur Leukocyte Esterase Negative (Negative) Urine WBC (Auto) 0-5 (0-5) /hpf Urine RBC (Auto) 0-2 (0-2) /hpf U Hyaline Cast (Auto) 3-5 H (0-2) /lpf U Epithel Cells (Auto) 0-2 (0-2) /hpf Urine Bacteria (Auto) None Seen (None Seen) Urine Test Negative (Negative) Urine Opiates Screen Neg (Neg) Ur Methadone, Qual Neg (Neg) Urine Fentanyl Screen Pos H (Neg) Urine Barbiturates Neg (Neg) Ur Phencyclidine (PCP) Neg (Neg) U Amphetamin/Meth Scrn Neg (Neg) MDMA (Ecstasy) Screen Neg (Neg) U Benzodiazepines Scrn Neg (Neg) Ur Cocaine Metabolite Neg (Neg) U Marijuana (THC) Screen Neg (Neg) Ethyl Alcohol mg/dL < 10.0 (<10.0) mg/dl Imaging Data Attestation: I personally reviewed and interpreted this imaging study as follows: Radiologist's Impression: Head CT 06/10/24 22:24 Exam(s): CT HEAD Without Contrast EXAM: CT Head Without Intravenous Contrast CLINICAL HISTORY: Reason for exam: seizure. TECHNIQUE: Axial computed tomography images of the head/brain without intravenous contrast. CTDI is 39 mGy and DLP is 624 mGy-cm. Automated exposure control was utilized for the study. A dose lowering technique was utilized adhering to the principles of ALARA. COMPARISON: CT head July 27, 2023. FINDINGS: Brain: Unremarkable. No acute intracranial hemorrhage, edema or abnormal mass-effect. Ventricles: Unremarkable. No ventriculomegaly. Bones/joints: Unremarkable. No acute fracture. Soft tissues: Unremarkable. Sinuses: Unremarkable as visualized. No acute sinusitis. Mastoid air cells: Unremarkable as visualized. No mastoid effusion. IMPRESSION: No acute or focal intracranial abnormality. Electronically signed by: Winston Garcia MD 06/10/24 23:30 PM [facility] Narrative Prior records/ancillary studies reviewed. Patient placed in seizure precautions immediately upon arrival. Nursing notes reviewed. Additional history obtained from family The patient's history was concerning for a possible seizure. Differential diagnosis: Etiologies such as infection, hypoglycemia, electrolyte abnormalities, cardiac sources, intracerebral event, trauma, toxicologic, neurologic, as well as others were entertained. Physical examination: As above. No signs of trauma. ER treatment provided: An order was placed for continuous cardiac monitoring. The monitor shows a rate of 60-100 with a sinus rhythm per my interpretation. Seizure precautions, IV fluids On reassessment the patient felt better. Diagnostics interpretation by me: ECG: ordered for seizure ECG: Normal sinus, normal intervals, no acute ST-T wave changes, rate of 104. Impression sinus tachycardia independently interpreted by myself The labs Independently Interpreted by myself revealed negative lactic. No worrisome leukocytosis Positive drug screen for fentanyl Hyperglycemia without DKA Imaging studies: Imaging was reviewed and read by radiology Consultation: A consultation was placed with toxicology and recommends labs, EKG and observation and treat for opiate like overdose. The case was discussed and diagnostics were reviewed. Consultation was placed with medicine and the case was discussed. Patient will be admitted to the medical service. Patient has a history of polysubstance abuse. She has been abusing kratom [id number]. Most likely her seizure was related to this. It is recommended by poison control that she be observed. Medicine was consulted and case discussed. She will be evaluated for admission by medicine. Patient was admitted to the medical service. No concerning physical findings were noted. By the evaluation outlined above emergent etiologies such as infection, hypoglycemia, electrolyte abnormalities, cardiac sources, intracerebral event, ,as well as others were deemed relatively unlikely. The patient was counseled not to drive until cleared in follow-up and seizure precautions given. I gave my usual and customary discussion regarding these issues. The appropriate motorcycle delivery driver's license form was completed and submitted. The pt informed about the findings as listed above. All questions were answered and pleased with the treatment. The chart was completed utilizing [employer] voice recognition software. Grammatical errors, random word insertions, pronoun errors, and incomplete sentences are an occassional consequence of this system due to software limitations, ambient noise, and hardware issues. Any formal questions or concerns about the content, text, or information contained within the body of this dictation should be directly addressed to the physician residential real estate assistant for clarification. Impression & Plan Seizure, Overdose Discharge Plan Visit Data Chief Complaint: Seizure Stated Complaint: SEIZURE ED Provider: Ramone [facility]cal[facility] ED Midlevel Provider: Dayana Lane Discharge Problem: Seizure, Overdose Patient Disposition: Admitted As Inpatient Condition: Good Forms Stand Alone Forms: [facility] [place] [employer] Prescriptions Prescriptions: No Action ibuprofen 200 mg Tablet 400 mg PO Q6H PRN (Reason: Pain) Kratom 1 tab PO DIRECTED PRN (Reason: Pain) Rx Instructions: Substitute for opium hydroxyzine HCl 10 mg tablet 10 mg PO Q8H PRN (Reason: anxiety or sleep) Qty: 14 0RF cholecalciferol (vitamin D3) [Vitamin D3] 50 mcg (2,000 unit) capsule 50 mcg PO DAILY Qty: 30 0RF Referrals Referrals: William Valdez [Primary Care Provider] -
--- NOTE | 2024-06-10 23:31 | CT Scan Report ---
Exam(s): CT HEAD Without Contrast EXAM: CT Head Without Intravenous Contrast CLINICAL HISTORY: Reason for exam: seizure. TECHNIQUE: Axial computed tomography images of the head/brain without intravenous contrast. CTDI is 39 mGy and DLP is 624 mGy-cm. Automated exposure control was utilized for the study. A dose lowering technique was utilized adhering to the principles of ALARA. COMPARISON: CT head July 27, 2023. FINDINGS: Brain: Unremarkable. No acute intracranial hemorrhage, edema or abnormal mass-effect. Ventricles: Unremarkable. No ventriculomegaly. Bones/joints: Unremarkable. No acute fracture. Soft tissues: Unremarkable. Sinuses: Unremarkable as visualized. No acute sinusitis. Mastoid air cells: Unremarkable as visualized. No mastoid effusion. IMPRESSION: No acute or focal intracranial abnormality. Electronically signed by: Winston Garcia MD 06/10/24 23:30 PM
--- NOTE | 2024-06-11 00:11 | History & Physical Report ---
Date of Service June 11, 2024 Assessment & Plan (1) Witnessed seizure-like activity: (2) Overdose: (3) Hepatitis C: Plan This is a 39 y/o female patient who was admitted after a witnessed seizure event. Kratom overdose Seizure - Patient with tonic/clonic seizure activity that may be related to seizure disorder versus kratom overdose (takes ~ 40 tabs per day) - Head CT at time of admission negative - CBC, CMP, Mg, lactate, and all other labs unremarkable - Had similar occurrence in 06/2023 for which she was also admitted and worked up for neurologic disorder, but was ultimately unremarkable and deemed no further testing was necessary - Suspect current episode was related to Kratom overdose rather than seizure disorder; did discuss importance of cessation of kratom use - Given possibility of withdrawal effect from discontinuation of Kratom, will admit to PCU for monitoring - Ativan prn ordered for increased agitation that may come as a consequence of potential withdrawal effects - May consider psychiatry consult versus outpatient follow up to address kratom use - May also consider neurology evaluation during admission or after discharge for EEG or prolonged cEEG Hepatitis C - Patient notes hx of hepatitis C but has never had testing such as viral load since she believed she needed to be off kratom to do this - No current treatment Dispo: Admit to PCU Diet: Regular VTE ppx: ambulation Code Status: FULL History of Present Illness Chief Complaint: Seizures Primary Care Provider: William Valdez Patient is a 39-year-old female with no significant past medical history who is brought to the emergency department after a witnessed seizure at home. Patient does not recall the event, however, mother who was present at bedside did also witnessed the whole episode. Patient's mother states that she was in the kitchen and heard something fall in the living of the home, when she left around the corner, she is on the patient's legs were stiff and elevated. After she somnolence, she went to (patient was obtained and noted to patient was having for body twitching and was not responsive when called. Also states that the patient was "foaming of the mouth "and that she bit her tongue or cheeks and was making snoring diagnosis throughout the event. The entire episode lasted around 2 to 3 minutes from what the mother can recall and the patient was confused and unable to answer questions for 1 to 2 minutes after the event ended. No urinary incontinence or vomiting throughout the entire episode. Of note, patient was admitted on 06/2023 due to a similar presentation where she was seen having a 2 to 3-minute episode of seizure-like activity with lip biting and tonic/clonic movements. Prior to this event, she has not had any seizures in the past and has never been on medications for seizures. Patient has history of opiate use for which she has gone to rehab in the past and has used other medications for detox. She states she has been using Kratom to avoid opiate withdrawal sxs, but denies current or recent use of opiate substances. Patient has been taking around 40 tabs of Kratom per day and is aware that high doses of this can lead to similar sxs as that of opiate substance use. Denies any other substance use. Medical History: [Reviewed] Medications: [Reviewed] Surgical History: [Reviewed] Family history: [Reviewed] Allergies: [Reviewed] Social History: [Reviewed] Allergies Allergy/AdvReac Type Severity Reaction Status Date / Time amoxicillin AdvReac Mild NAUSEA AND Verified 07/28/23 01:59 VOMITING clavulanic acid AdvReac Mild NAUSEA AND Verified 07/28/23 01:59 VOMITING guaifenesin AdvReac Mild N/V Verified 07/28/23 01:59 phenylephrine AdvReac Mild N/V Verified 07/28/23 01:59 phenylpropanolamine AdvReac Mild N/V Verified 07/28/23 01:59 Home Medications Medication Instructions Recorded Confirmed Type Kratom 1 tab PO DIRECTED PRN Pain 07/28/23 07/28/23 History cholecalciferol (vitamin D3) 50 50 mcg PO DAILY #30 caps 07/28/23 Rx mcg (2,000 unit) capsule (Vitamin D3) hydroxyzine HCl 10 mg tablet 10 mg PO Q8H PRN anxiety or sleep 07/28/23 Rx #14 tabs ibuprofen 200 mg tablet 400 mg PO Q6H PRN Pain 07/28/23 07/28/23 History Past Med/Surg History Problem List (Updated 06/10/24 @ 23:[address] PA-C) Overdose (Acute) Seizure (Acute) Vitamin D deficiency Hepatitis C Adverse effect of herbal medication (Acute) Elevated troponin (Acute) Syncope (Acute) Witnessed seizure-like activity (Acute) Right lower quadrant abdominal pain (Acute) Right upper quadrant abdominal pain (Acute) Medical History Migraine headache Opioid abuse, in remission Social History Smoking Status: Current every day smoker Tobacco Type: Cigarettes Cigarettes Per Day: 20; Second Hand Exposure: No; Do You Dip or Chew Tobacco: No; Tobacco Cessation Education Requested by Patient: No Hx Alcohol Use: No Hx Substance Use: Yes Last Used Substance: Just Prior to Arrival Last Used Substance Other:: Krakom Substance Use Type Other:: Kratom Preferred Language: Belarusian Communication Ability: Effective Impregnating Tank Operator Required: No Beliefs That Will Affect Care: None Current Living Situation: Family Current Living Situation Comment: lives w/ mother Other Information That Helps Us Care for You: No Feels Safe at Home: Yes Safety Concerns: Feels Safe At This Time Assistive Devices: None Review of Systems Review of Systems: As per HPI Physical Exam Physical Exam: GENERAL: AAOx4, afebrile, NAD HEAD: Atraumatic, normocephalic EYES: PERRL, EOM intact THROAT: Normal to visual inspection CHEST: Symmetric chest expansion with respiration, no tenderness on palpation of anterior chest wall CARDIO: Regular rate and rhythm, no rubs murmurs or gallops PULMONARY: Clear to auscultation, no respiratory distress GI: Soft, nontender, nondistended EXTREMITIES: No swelling or calf tenderness in bilateral LE SKIN: No rashes, lacerations, or skin lesions appreciated on exam NEURO: Calm, conversant with normal speech, normal motor function in all extremities, able to answer questions and is cooperative, baseline cognition Results & Data Results & Data Vital Signs (Past 12 Hours) Vital Signs Temp Pulse Pulse Resp BP BP Pulse Ox 06/10/24 23:37 86 17 119/73 97 06/10/24 21:56 103 H 06/10/24 21:55 37.2 C 106 H 17 135/87 97 06/10/24 21:55 06/10/24 21:55 37.2 C 105 H 16 135/87 99 O2 Del Method 06/10/24 23:37 Room Air 06/10/24 21:56 06/10/24 21:55 Room Air 06/10/24 21:55 Room Air 06/10/24 21:55 Room Air Supervising Physician Co-Signing Physician Notes Attending addendum: I have physically seen this patient, have supervised the medical residents activities, and agree with the H&P unless as otherwise noted. Assessment and Plan: The patient is a 39-year-old female who is referred for evaluation of [facility] service after a witnessed seizure event while in the emergency department. The patient has a known history of kratom overdose, and was witnessed to have a tonic/clonic seizure activity while in the emergency department. Workup in the emergency department included CT scan of head without contrast which was negative. Laboratory workup including CBC with differential, chemistry profile, magnesium, lactate all other labs are unremarkable. #Kratom overdose/seizure- The patient did have a similar occurrence in 06/2023, for which she was also admitted at that time, undergoing a workup for neurologic disorder, but was ultimately found to be without acute findings and no further workup was performed at that time. Patient was advised regarding the kratom overdose, and importance of cessation of kratom use. Patient will be admitted to the telemetry unit to monitor for arrhythmias. Placed on AWSS protocol Consult psychiatry If recurrence of seizure activity, will pursue additional imaging including MR RI brain, and EEG at that time Resident Activity Tracking Resident Involvement: Resident Care Provided Care Provided: Adult Hospital Medicine
[2024-06-11] MEDS ORDERED: ONDANSETRON INJ 2 MG/ML 2 ML VIAL IV PRN (02:25)
[2024-06-11] MEDS ORDERED: Ativan IV Alcohol Withdrawal--Active Protocol IV PRN (02:25)
[2024-06-11] MEDS ORDERED: POLYETHYLENE (MIRALAX) 17 GM PACK PO PRN (02:25)
[2024-06-11] MEDS ORDERED: ACETAMINOPHEN 325 MG TAB PO PRN (02:25)
[2024-06-11] MEDS ORDERED: LORazepam 2 MG/1 ML VIAL IV PRN ×3 (02:25)
[2024-06-11] MEDS: NICOTINE 14 MG/24 HR PATCH TD SCH (03:23)
--- NOTE | 2024-06-11 04:19 | Billing Data ---
Date of Service June 11, 2024 Coding Level of Care Code 74640 INT INP/OBS CARE
[2024-06-11 07:27] VITALS: BP 127/77; RESP 16; TEMP 98.2; O2SAT 100
[2024-06-11 07:44] VITALS: PULSE 60
--- NOTE | 2024-06-11 08:58 | Discharge Summary ---
Discharge Summary Date of Service June 11, 2024 Principal Dx & Hospital Course #1 = Principal Diagnosis (1) Witnessed seizure-like activity: (2) Overdose: (3) Hepatitis C: Plan This is a 39 y/o female patient who was admitted after a witnessed seizure event. Kratom overdose Seizure - Patient with tonic/clonic seizure activity that may be related to seizure disorder versus kratom overdose (takes ~ 40 tabs per day) - Head CT at time of admission negative - CBC, CMP, Mg, lactate, and all other labs unremarkable - Had similar occurrence in 06/2023 for which she was also admitted and worked up for neurologic disorder, but was ultimately unremarkable and deemed no further testing was necessary - Suspect current episode was related to Kratom overdose rather than seizure disorder; did discuss importance of cessation of kratom use - Given possibility of withdrawal effect from discontinuation of Kratom, will admit to PCU for monitoring - Ativan prn ordered for increased agitation that may come as a consequence of potential withdrawal effects - May consider psychiatry consult versus outpatient follow up to address kratom use - May also consider neurology evaluation during admission or after discharge for EEG or prolonged cEEG -Pt now feeling normal at baseline, no seizure activity overnight. Hepatitis C - Patient notes hx of hepatitis C but has never had testing such as viral load since she believed she needed to be off kratom to do this - No current treatment Dispo: Admit to PCU Diet: Regular VTE ppx: ambulation Code Status: FULL Admission HPI Per Admitting Provider Patient is a 39-year-old female with no significant past medical history who is brought to the emergency department after a witnessed seizure at home. Patient does not recall the event, however, mother who was present at bedside did also witnessed the whole episode. Patient's mother states that she was in the kitchen and heard something fall in the living of the home, when she left around the corner, she is on the patient's legs were stiff and elevated. After she somnolence, she went to (patient was obtained and noted to patient was having for body twitching and was not responsive when called. Also states that the patient was "foaming of the mouth "and that she bit her tongue or cheeks and was making snoring diagnosis throughout the event. The entire episode lasted around 2 to 3 minutes from what the mother can recall and the patient was confused and unable to answer questions for 1 to 2 minutes after the event ended. No urinary incontinence or vomiting throughout the entire episode. Of note, patient was admitted on 06/2023 due to a similar presentation where she was seen having a 2 to 3-minute episode of seizure-like activity with lip biting and tonic/clonic movements. Prior to this event, she has not had any seizures in the past and has never been on medications for seizures. Patient has history of opiate use for which she has gone to rehab in the past and has used other medications for detox. She states she has been using Kratom to avoid opiate withdrawal sxs, but denies current or recent use of opiate substances. Patient has been taking around 40 tabs of Kratom per day and is aware that high doses of this can lead to similar sxs as that of opiate substance use. Denies any other substance use. Medical History: [Reviewed] Medications: [Reviewed] Surgical History: [Reviewed] Family history: [Reviewed] Allergies: [Reviewed] Social History: [Reviewed] Discharge Exam GENERAL APPEARANCE NAD, activity normal for age, well developed/ well nourished, no cyanosis, pallor, or diaphoresis. EYES lids/conjunctiva normal. EARS/NOSE/THROAT Mucous membranes moist, nares normal, lips/teeth normal uvula midline without oral pharyngeal erythema, exudate or swelling TMs normal bilaterally. No lymphangitis/lymphedema. HEAD/NECK normocephalic atraumatic, no facial trauma, neck is supple. RESPIRATORY respiratory effort normal, speaks in full sentences, no tripod position, no accessory muscle use. Lungs clear to auscultation without rhonchi, wheezes, rales CARDIAC Regular rate and rhythm, no edema. ABDOMINAL Soft, ND/NT. No evidence of fluid wave. No pulsatile masses on exam, rebound tenderness, Doyle sign or pain over Mcburney's point. MUSCLES/EXTREMITIES No abnormal range of motion, no swelling. SKIN Warm, pink and dry. No rashes, dermatoses, petechiae or lesions. NEUROLOGICAL Speech is clear and appropriate. Normal level of consciousness. Gait and coordination are normal. 5/5 strength in all extremities. PSYCH Normal mood and affect. Judgement/competence is appropriate Discharge Plan Discharge Items Patient Disposition: Home - Self-Care Reason For Visit: SEIZURE Discharge Diagnosis: Kratom overdose Condition on Discharge: Good Activity: Resume your previous activity Non-emergency contact: Primary Care Provider Call non-emergency contact if: you have any medication questions Follow-up/Referrals: William Valdez [Primary Care Provider] - Diet: Regular Addtl Attending Provider Instructions: Follow up with PMD in 2 weeks Pending Studies at Discharge: No Stand-Alone Forms: [facility], Smoking Cessation Medications and DC Order Prescriptions: Continued ibuprofen 200 mg Tablet 400 mg PO Q6H PRN (Reason: Pain) Kratom 1 tab PO DIRECTED PRN (Reason: Pain) Rx Instructions: Substitute for opium hydroxyzine HCl 10 mg tablet 10 mg PO Q8H PRN (Reason: anxiety or sleep) Qty: 14 0RF cholecalciferol (vitamin D3) [Vitamin D3] 50 mcg (2,000 unit) capsule 50 mcg PO DAILY Qty: 30 0RF Discharge Orders: Discharge Order (Routine); Ordered 06/11/24 Ordered By: Jean Álvarez Admission Data Admit Date/Time: 06/11/24 00:10 Attending Provider: Jean Álvarez Admit Provider: James Valenzuela Primary Care Provider: William Valdez Other Providers: James Valenzuela Hospital Stay Data Consultations 06/10/24 23:51 ED Decision to Admit Stat Diagnostic Imagining Performed 06/10/24 22:24 CT head/brain wo con Stat Pending Results Patient Have Any Pending Studies at Discharge: No Discharge Instructions Given to Patient (Per Discharging Provider) Follow up with PMD in 2 weeks Total Time Total Time Spent Total Time Spent (In Minutes): 50 Coding Level of Care Code 54533 INP/OBS DISCH >30 MIN Diagnoses Witnessed seizure-like activity R56.9 Overdose T50.901A Hepatitis C B19.20
[2024-06-11] MEDS ORDERED: NICOTINE 14 MG/24 HR PATCH TD SCH (09:00)
--- NOTE | 2024-06-11 13:14 | Electrocardiogram Report ---
Test Reason : Blood Pressure : */* mmHG Vent. Rate : 104 BPM Atrial Rate : 104 BPM P-R Int : 190 ms QRS Dur : 104 ms QT Int : 364 ms P-R-T Axes : 72 75 32 degrees QTcB Int : 478 ms Sinus tachycardia Possible Left atrial enlargement Septal infarct , age undetermined Abnormal ECG When compared with ECG of 27-Jul-2023 18:51, Septal infarct is now Present Confirmed by Sorin Gudino ([id number]) on 06/11/2024 1:13:52 PM Referred By: REFERRED SELF Confirmed By: Sorin Gudino
== END 2024-06-11 10:05 | disposition home or self-care (01) ==
LOC: 4W 21:41 → ED 21:41 → SUATTDRO 06-11 00:10 → 4W 06-11 02:18